=== PATIENT | female | born 1930 | race Caucasian/White ===

== ENCOUNTER 2016-07-17 09:08 | Inpatient (IN) | payer MEDICARE, BC ==
[~2016-07-17] VITALS: Ht 147.3 cm; Wt 58.9 kg
[~2016-07-17 09:08] MED LIST: AMLO-20 PO; CELEBREX; CLONIDINE; EZET1TAB40 PO; LOVAZA; TYLENOL
[2016-07-17] MEDS ORDERED: ONDANSETRON 4 MG INJ IV STA ×2 (09:13→10:42)
[2016-07-17] MEDS ORDERED: morphine 4 MG/ML VIAL IV STA ×2 (09:13→10:42)
--- NOTE | 2016-07-17 09:54 | RADRPT ---
PROCEDURE: XR Left Hip. CLINICAL INDICATION: Suspected fx after ground level fall TECHNIQUE: AP and frog lateral views of the left hip were performed. COMPARISON: None. FINDINGS: Comminuted intertrochanteric left hip fracture with medial displacement of the proximal femur. Mauricio ed varus angulation at the fracture site. Atherosclerotic calcification of the femoral artery. No gross pelvic fracture. IMPRESSION: Comminuted intratrochanteric fracture of the left hip with varus angulation. No pelvic fracture. RPTAT:AAJJ Nia Maldonado Physician Date Time Electronically viewed and signed by Physician Shaniqua on 07/17/2016 09:54 ESTRELLITA/
--- NOTE | 2016-07-17 09:54 | ERA ---
ER Documentation Chief Complaint Date/Time DATE: 07/17/16 TIME: 09:50 Chief Complaint left hip pain with rotation HPI This is a very pleasant 86-year-old Guinean speaking female presents to the emergency department after she had a ground-level fall while getting out of a van at her assisted living facility. She tripped and fell and landed on her left hip. She did not hit her head or lose consciousness. She indicates that there is a significant amount of pain over her left hip when she attempts to move it. She received 4 mg of morphine intravenously by EMS. She denies any back pain. She has no chest pain or pressure. She denies any dyspnea. She denies any numbness or tingling of her left lower extremity ROS All systems reviewed and are negative except as per history of present illness. Medications Home Meds Reported Medications [Tylenol] No Conflict Check 12/11/12 [Lovaza] No Conflict Check 12/11/12 [Clonidine] No Conflict Check 12/11/12 [Celebrex] No Conflict Check 12/11/12 Amlodipine-Benazepril (Amlodipine-Benazepril) 1 Cap Capsule, 1 CAP PO BID 03/23/11 Ezetimibe-Simvastatin (Vytorin) 1 Tab Tablet, 1 TAB PO DAILY 03/23/11 Allergies Allergies: Coded Allergies: No Known Allergies (Verified Allergy, Unknown, 07/17/16) PMhx/Soc Medical and Surgical Hx: pt denies Medical Hx, pt denies Surgical Hx Anesthesia Reaction: No Hx Neurological Disorder: No Hx Respiratory Disorders: Yes (SOB.) Hx Cardiac Disorders: Yes (HTN.) Hx Psychiatric Problems: No Hx Miscellaneous Medical Probl: No Hx Alcohol Use: No Hx Substance Use: No Hx Tobacco Use: No Smoking Status: Current every day smoker Physical Exam Vitals Vital Signs Date Time Temp Pulse Resp B/P Pulse Ox O2 Delivery O2 Flow Rate FiO2 07/17/16 09:18 97.7 74 18 140/92 98 Physical Exam Constitutional:Well-developed. Well-nourished. HEENT:Normocephalic. Atraumatic.Pupils were equal round reactive to light. Moist mucous membranes.No tonsillar exudates. Neck: No nuchal rigidity. No lymphadenopathy. No posterior cervical spine tenderness or step-offs. Respiratory: Not using accessory muscles of respiration.Lungs were clear to auscultation bilaterally. No rhonchi. No rales. No wheezing. Cardiovascular: Regular rate regular rhythm.No murmurs. No rubs were appreciated.S1, S2 normal. Distal pulses are palpable 2+ bilaterally. GI: Abdomen was soft. Nontender. Non Distended. No pulsatile abdominal masses or bruits. No rebound. No guarding. Bowel sounds were present and normal. Muscle skeletal: Full range of motion of both the upper extremities. Patient was able to AB duct both upper extremities past 90. No tenderness over the bilateral humeral head. Tenderness over the proximal left femur and left lower extremity was short and externally rotated. No muscle atrophy Skin: No petechia, no purpura. No lesions on the palms or the soles of the feet. No maculopapular rash. NEURO: Patient was alert, awake, orientated to person place but not to time.No facial droop. Gait not observed due to the patient's deformities of her left lower extremity peer.Speech had regular rate and rhythm. No focal neurological deficits. Constitutional:Well-developed. Well-nourished. Result Diagram: 07/17/16 1017 07/17/16 1017 Results 24 hrs Laboratory Tests Test 07/17/16 10:17 Activated Partial Thromboplast Time 28.6Sec Alanine Aminotransferase (ALT/SGPT) 32IU/L Albumin 3.6g/dl Albumin/Globulin Ratio 1.24 Alkaline Phosphatase 50IU/L Amylase Level 81U/L Anion Gap 14 Aspartate Amino Transf (AST/SGOT) 29IU/L Basophils # 0.010^3/ul Basophils % 0.4% Blood Urea Nitrogen 14mg/dl Calcium Level 8.8mg/dl Carbon Dioxide Level 28mmol/L Chloride Level 107mmol/L Creatinine 0.66mg/dl Direct Bilirubin 0.00mg/dl Eosinophils # 0.110^3/ul Eosinophils % 0.8% Globulin 2.90g/dl Glucose Level 123mg/dl Hematocrit 39.4% Hemoglobin 13.3g/dl INR International Normalized Ratio 1.14 Indirect Bilirubin 0.4mg/dl Lipase 31U/L Lymphocytes # 1.810^3/ul Lymphocytes % 20.4% Mean Corpuscular Hemoglobin 31.7pg Mean Corpuscular Hemoglobin Concent 33.8g/dl Mean Corpuscular Volume 93.9fl Mean Platelet Volume 9.4fl Monocytes # 0.710^3/ul Monocytes % 7.5% Neutrophils # 6.310^3/ul Neutrophils % 70.9% Nucleated Red Blood Cells # 0.010^3/ul Nucleated Red Blood Cells % 0.0/100WBC Platelet Count 56450^3/UL Potassium Level 4.3mmol/L Prothrombin Time 14.6Sec Prothrombin Time Ratio 1.1 Red Blood Count 4.2010^6/ul Red Cell Distribution Width 12.9% Sodium Level 145mmol/L Total Bilirubin 0.4mg/dl Total Protein 6.5g/dl Troponin I < 0.012ng/ml White Blood Count 8.910^3/ul Current Medications Medications (Trade) Dose Ordered Sig/Ryan Route PRN Reason Start Time Stop Time Status Last Admin Dose Admin Morphine Sulfate (morphine) 4 mg ONCE STAT IV 07/17/16 09:13 07/17/16 09:17 DC 07/17/16 09:25 Ondansetron HCl (Zofran Inj) 4 mg ONCE STAT IV 07/17/16 09:13 07/17/16 09:17 DC 07/17/16 09:25 Morphine Sulfate (morphine) 4 mg ONCE STAT IV 07/17/16 10:42 07/17/16 10:43 DC 07/17/16 10:45 Ondansetron HCl (Zofran Inj) 4 mg ONCE STAT IV 07/17/16 10:42 07/17/16 10:43 DC 07/17/16 10:45 Ondansetron HCl (Zofran Inj) 4 mg BRIDGE ORDER PRN IV NAUSEA AND/OR VOMITING 07/17/16 11:00 07/18/16 10:59 Procedures/MDM Patient presented to the emergency department with a ground-level fall. There is no closed head injury and and utilizing the Nexus criteria I did not obtain a CT scan of the patient's neck. The patient is in a significant amount discomfort and therefore was placed in a quality assurance monitor continuous pulse oximetry and IV access was established by nursing staff. The patient received intravenous morphine and Zofran for analgesic control. 12 Lead EKG tracing ordered and reviewed by myself showed: Accelerated junctional rhythm of 77 bpm and no arrhythmia. [place] interval normal. QRS duration normal. No ST segment elevation. Left axis deviation No ST segment depression. No changes consistent with acute ischemia. X-ray of the right hip and pelvis read by myself as well as the radiologist indicated the following: Comminuted intratrochanteric fracture of the left hip with varus angulation. No pelvic fracture. The patient states her primary care physician is Dr. Boland. Therefore spoke with him personally he stated he will make a consult to Dr. Schuler at the patient has been seen by Dr. Schuler in the past due to a right hip fracture in 2012 that required ORIF. The patient was made n.p.o. She will be admitted in serious condition with an anticipated stay of greater than 2 midnights the medical surgical floor Departure Diagnosis: Primary Impression: Closed intertrochanteric fracture of right hip NELDA FOURNIER Jul 17, 2016 09:54
--- NOTE | 2016-07-17 09:56 | RADRPT ---
PROCEDURE: Pelvis x-ray CLINICAL INDICATION: Suspected fracture following ground-level fall. TECHNIQUE: Single AP view of the pelvis performed. COMPARISON: None FINDINGS: Comminuted intertrochanteric fracture of the left hip with varus angulation at the fracture site. C hronic fracture deformity of the right inferior pubic ramus and superior pubic ramus. Right hip mal e an intramedullary rosa in place. Remaining pelvis is intact. IMPRESSION: Comminuted intertrochanteric fracture deformity of the left hip. Chronic right inferior and superio r pubic rami fractures Right hip male intramedullary rosa in place. RPTAT:AAJJ Physician Shaniqua Date Time Electronically viewed and signed by Physician Shaniqua on 07/17/2016 09:56 ESTRELLITA/
[2016-07-17 10:24] LABS: BASOPHILS % 0.4 % (0.0-2.0); EOSINOPHILS # 0.1 10^3/ul (0.0-0.5); EOSINOPHILS % 0.8 % (0.0-7.0); HEMATOCRIT 39.4 % (37.0-47.0); HEMOGLOBIN 13.3 g/dl (12.0-16.0); LYMPHOCYTES # 1.8 10^3/ul (0.8-2.9); LYMPHOCYTES % 20.4 % (15.0-51.0); MEAN CORPUSCULAR HEMOGLOBIN 31.7 pg (29.0-33.0); MEAN CORPUSCULAR HGB CONC 33.8 g/dl (32.0-37.0); MEAN CORPUSCULAR VOLUME 93.9 fl (82.0-101.0); MEAN PLATELET VOLUME 9.4 fl (7.4-10.4); MONOCYTE # 0.7 10^3/ul (0.3-0.9); MONOCYTES % 7.5 % (0.0-11.0); NEUTROPHIL # 6.3 10^3/ul (1.6-7.5); NEUTROPHILS % 70.9 % (39.0-77.0); PLATELET COUNT 191 10^3/UL (140-440); RED CELL DISTRIBUTION WIDTH 12.9 % (11.5-14.5); UNCORRECTED WBC 8.9 10^3/ul (4.8-10.8); WHITE BLOOD COUNT 8.9 10^3/ul (4.8-10.8)
[2016-07-17 10:30] LABS: CONDITION 1
[2016-07-17 10:36] LABS: ALBUMIN 3.6 g/dl (3.3-4.9); INR 1.14; PROTIME 14.6 Sec (12.2-14.2); PT RATIO 1.1
[2016-07-17 10:37] LABS: CHLORIDE 107 mmol/L (97-110); PARTIAL THROMBOPLASTIN TIME 28.6 Sec (25.0-35.0); POTASSIUM 4.3 mmol/L (3.5-5.1); SODIUM 145 mmol/L (135-144)
[2016-07-17 10:39] LABS: ALBUMIN/GLOBULIN RATIO 1.24; AMYLASE 81 U/L (11-123); ANION GAP 14 (8-16); ASPARTATE AMINO TRANSFERASE 29 IU/L (15-46); BILIRUBIN,INDIRECT 0.4 mg/dl (0-1.1); BILIRUBIN,TOTAL 0.4 mg/dl (0.2-1.3); CARBON DIOXIDE 28 mmol/L (21-31); CREATININE 0.66 mg/dl (0.44-1.00); TOTAL PROTEIN 6.5 g/dl (6.1-8.1)
[2016-07-17 10:40] LABS: ALANINE AMINOTRANSFERASE 32 IU/L (13-69); ALKALINE PHOSPHATASE 50 IU/L (42-121); BLOOD UREA NITROGEN 14 mg/dl (7-20); CALCIUM 8.8 mg/dl (8.4-10.2); GLUCOSE 123 mg/dl (70-220)
[2016-07-17 10:54] LABS: TROPONIN-I < 0.012 ng/ml (0.00-0.12)
[2016-07-17] MEDS ORDERED: ONDANSETRON 4 MG INJ IV PRN ×2 (11:00→13:00)
[2016-07-17] MEDS ORDERED: BACL10TA PO (11:23)
[2016-07-17] MEDS ORDERED: MAGN400T27 PO (11:23)
[2016-07-17] MEDS ORDERED: LEVO50TA71 PO (11:24)
[2016-07-17] MEDS ORDERED: GABA300C16 PO (11:24)
[2016-07-17] MEDS ORDERED: MECL-77 PO (11:24)
[2016-07-17] MEDS ORDERED: AMLO1CAP15 PO (11:25)
[2016-07-17] MEDS ORDERED: MEMA28CA PO (11:26)
[2016-07-17] MEDS ORDERED: IBAN150T7 PO (11:26)
[2016-07-17] MEDS ORDERED: OMEG1CAP2 PO (11:27)
[2016-07-17] MEDS ORDERED: ROSU20TA PO (11:27)
[2016-07-17] MEDS ORDERED: ASPI1CPM8 PO (11:27)
[2016-07-17] MEDS ORDERED: CHOL100062 PO (11:28)
[2016-07-17] MEDS ORDERED: NACL 0.9% 3 ML SYG IV SCH (13:00)
[2016-07-17] MEDS ORDERED: DOCUSATE SODIUM 100 MG CAP PO PRN (13:00)
[2016-07-17] MEDS ORDERED: MECLIZINE 25 MG TAB PO PRN (13:00)
[2016-07-17] MEDS ORDERED: MAGNESIUM HYDROXIDE 30ML CUP PO PRN (13:00)
[2016-07-17] MEDS ORDERED: SOD CHLORIDE 0.9% 1,000 ML IV STA (14:20)
--- NOTE | 2016-07-17 16:04 | RADRPT ---
Echocardiogram Report Patient Name: SHERI ALAMO Gender: Female Date: 1930 Study Date: 17-Jul-2016 Landscape Artist: Colette Briscoe RDCS Location: [facility] Ref. Physician: ABELARDO NELSON Quality: Adequate Procedures: Transthoracic echocardiogram with complete 2D, M-Mode, and doppler examination. Indications: Pre-op. 2D/M Mode Doppler Measurement Value Normal Ranges Measurement Value Normal Ranges LVIDd 2D 3.5 3.5 - 5.6 cm AV Peak Adan 1.1 m/sec LVIDs 2D 1.5 2.1 - 4.1 cm AV Peak PG 5.0 mmHg FS 2D 57.5 % AI Peak PG 54.0 mmHg LVPWd 2D 1.2 0.6 - 1.1 cm AI Peak Adan 3.7 m/sec IVSd 2D 1.3 0.6 - 1.1 cm AI PHT 590.0 msec IVS/LVPW 2D 1.0 LVOT Peak Adan 0.9 m/sec AoR Diam 2D 3.0 2.0 - 3.7 cm LVOT Peak PG 3.0 mmHg LA/Ao 2D 1 0 - 1 MV E Peak Adan 0.4 m/sec EDV 2D 44.7 cm3 MV A Peak Adan 0.8 m/sec ESV 2D 3.4 cm3 MV E/A 0.6 LA Dimen 2D 3.5 2.3 - 4.0 cm MV Decel Time 162 msec MV E/A 0.6 TR Peak Adan 2.3 m/sec TR Peak PG 22.0 mmHg RVSP 25.0 mmHg Findings Left Ventricle: Normal left ventricular systolic function. Normal left ventricular cavity size. Moderate concentric left ventricular hypertrophy. Ejection fraction is visually estimated at 65 %. Tissue Doppler/Mitral Doppler indices are consistent with impaired relaxation (Stage I diastolic dysfunction). Right Ventricle: Normal right ventricular size. Normal right ventricular systolic function. Left Atrium: The left atrium is normal in size. Right Atrium: The right atrium is normal in size. Mitral Valve: Normal appearance of the mitral valve. Mild mitral annular calcification. Trace mitral regurgitation. Aortic Valve: No hemodynamically significant aortic stenosis by doppler. Aortic cusps appear mildly calcified. Mild aortic valve regurgitation. Tricuspid Valve: Normal appearance of the tricuspid valve. Estimated peak PA systolic pressure 25 mmHg. There is trace tricuspid regurgitation. Pericardium: Trivial pericardial effusion. Left pleural effusion seen. Aorta: Normal aortic root. IVC: Normal size and normal respiratory collapse consistent with normal right atrial pressure. Conclusions 1.Normal left ventricular systolic function. Normal left ventricular cavity size. Moderate concentric left ventricular hypertrophy. Ejection fraction is visually estimated at 65 %. Tissue Doppler/Mitral Doppler indices are consistent with impaired relaxation (Stage I diastolic dysfunction). 2.The left atrium is normal in size. 3.Normal appearance of the mitral valve. Mild mitral annular calcification. Trace mitral regurgitation. 4.No hemodynamically significant aortic stenosis by doppler. Aortic cusps appear mildly calcified. Mild aortic valve regurgitation. 5.Normal appearance of the tricuspid valve. Estimated peak PA systolic pressure 25 mmHg. There is trace tricuspid regurgitation. 6.Normal size and normal respiratory collapse consistent with normal right atrial pressure. Electronically Signed By: Abelardo Nelson 17-Jul-2016 16:03:12 -0800 Patient Name: SHERI ALAMO Study Date: 17-Jul-2016 [id number]
--- NOTE | 2016-07-17 16:30 | RADRPT ---
PROCEDURE: XR Chest AP portable CLINICAL INDICATION: Pleural preop TECHNIQUE: An AP portable radiograph of the chest was submitted. COMPARISON: 12/15/2012 FINDINGS: Support Hardware: None Cardiovascular: The heart size has increased and is now moderately enlarged of the aorta appears ath erosclerotic and the pulmonary vasculature appears unremarkable. Lung Bond: A suboptimal inspiration compresses lung parenchyma with exaggeration of bibasilar inte rstitial markings. Interstitial prominence is also now seen in the right upper lobe. Pleural Spaces: No pneumothorax or pleural effusion is identified. Osseous Structures: Moderate degenerative spine changes are noted. Compression fracture deformities are seen at the thoracolumbar junction. Soft Tissues: The soft tissues appear generous. IMPRESSION: 1. Increased heart size with no moderate cardiomegaly. The aorta again appears tortuous but there is no evidence of CHF. 2. A suboptimal inspiration compresses lung parenchyma exaggerating the bibasilar interstitial monty ings and interstitial infiltrate in a band-like fashion is not seen within the medial right upper ty ng zone. 3. No effusion or pneumothorax is evident. 4. Compression fracture deformities are evident at the vertical lumbar junction. These were obscure d previously by under penetrated technique. Physician Rosa Date Time Electronically viewed and signed by Physician Rosa on 07/17/2016 16:30 RH/
--- NOTE | 2016-07-17 18:04 | HP ---
DATE OF ADMISSION: 07/17/2016 REASON FOR ADMISSION: Left hip fracture. HISTORY OF PRESENT ILLNESS: The patient is an 86-year-old Croatian-speaking female with history of hypertension, osteoarthritis, dyslipidemia, osteoporosis who is very well known to me. Back in 2012 she underwent right hip ORIF, status post fall and fracture. The patient overall is doing very well . She is ambulatory. Good functional capacity. Unfortunately, today she sustained a fall complain ing of severe pain in the left hip. She was brought into [facility] for further e valuation. In the ER, the temperature vital signs temperature 97.7, pulse 74, respirations 18, bloo d pressure was 140/92, saturation 98%. The patient underwent multiple x-rays including a pelvic x-r ay which showed comminuted intertrochanteric fracture deformity of the left hip, chronic right infer ior and superior pubic ramus fracture of the right hip intramedullary rosa in place. Hip x-ray shows comminuted intertrochanteric fracture of the left hip with varus angulation. No pelvic fracture. C BC: CBC including CMP were all normal. Troponin was negative. We decided to admit the patient for further evaluation for possible surgical intervention as patient has severe pain in the left hip upo n slight movement. The patient denies any chest pain or shortness of breath. Family is at bedside. As of note, after surgery she had in 2013 for the right hip fracture she did have episodes of hypo justin requiring ICU care. At that time, CT pulmonary angiogram showed a 4.5 cm ascending aortic aneur ysm, cardiomegaly and small pericardial effusion and a 5 mm left apical pulmonary nodule and T12, T1 1 and L1 superior end plate compression fracture. At that time, patient improved and discharged. PAST MEDICAL HISTORY: Includes hypertension, osteoarthritis, and osteoporosis. ALLERGIES: NO KNOWN DRUG ALLERGIES. SURGICAL HISTORY: Appendectomy, right hip ORIF. SOCIAL HISTORY: No history of tobacco, alcohol or IV drug use. The patient is a . She has 4 kids. FAMILY HISTORY: Not contributory. MEDICATIONS: CURRENT MEDICATIONS: Include the followin. Baclofen 10 mg daily. 2. Amlodipine. 3. Benazepril combination 10/40 half a tab t.i.d. 4. Aspirin. 5. Aggrenox 1 capsule b.i.d. 6. Lovaza 2 grams b.i.d. 7. Crestor 20 mg at bedtime. 8. Gabapentin 300 mg at bedtime. 9. Namenda XR 28 mg daily. 10. Mag-Ox 400 b.i.d. 11. Meclizine 25 b.i.d. p.r.n. her dizziness. 12. Synthroid 50 mcg daily. 13. Vitamin D3 as directed. 14. ____ 150 mg every month. PHYSICAL EXAMINATION: VITAL SIGNS: Temperature is 97.7, pulse 81, respirations 18, blood pressure 106/73, saturation 98% on room air. GENERAL: The patient is in no acute distress. HEENT: Normocephalic, atraumatic. The patient is pale. NECK: No JVD. CARDIOVASCULAR: S1 and S2, regular rate and rhythm. LUNGS: Clear bilaterally. ABDOMEN: Soft, nontender. EXTREMITIES: No clubbing, cyanosis, or edema. Left lower extremity laterally rotated and shortened consistent with a hip fracture. The patient has severe pain upon slight movement of the left lower extremity. LABORATORY DATA: White count 8.9, hemoglobin 13.3, hematocrit 39, platelet count 191, neutrophils 7 1%, lymphocytes 20%. Chemistry: Sodium is 145, potassium 4.3, chloride 107, bicarbonate 28, BUN is 14, creatinine 0.66, glucose of 123, AST 29, ALT 32, alkaline phosphatase 50, troponin is less than 0.012. Total protein +6.5, lipase is 31. INR is 1.14. Chest x-ray was not done. EKG: Accelerated junctional rhythm, left axis deviation, septal infarct, age undetermined. EKG wh [facility] was done back in 2012. At that time, shows normal sinus rhythm with left axis deviation. ASSESSMENT AND PLAN: This is an 86-year-old Croatian female with history of hypertension, osteoarth ritis, hypothyroidism, osteoarthritis who presented with left hip fracture status post fall. 1. Left hip fracture. The patient with no significant risk factors, no history of diabetes, morales ry artery disease. She does have an abnormal EKG. The patient overall with good functional capacit y. We will obtain a baseline echocardiogram and will consult Cardiology. Likely would not need any further cardiac workup but will discuss with Dr. Nelson. 2. Left hip fracture. Patient likely will need surgical intervention. We will consult Dr. Edu bean for further recommendations. 3. Hypertension. May benefit from beta blockers in the perioperative state as the patient has been on Aggrenox. We will place the patient on deep venous thrombosis prophylaxis with Lovenox. 4. The patient will be kept comfortable with pain medications. 5. Protonix to be given for GI prophylaxis. 6. Hypothyroidism. Follow up TSH level. Continue current Synthroid dose. Case discussed with fam anjel member at bedside. We will follow. Dictated By: ESTER CUBA/BETI Conf#: [id number] DID#: [id number]
--- NOTE | 2016-07-17 19:08 | CONS ---
DATE OF ADMISSION: 07/17/2016 DATE OF CONSULTATION: 07/17/2016 REFERRING PHYSICIAN: Grant Kinney MD REASON FOR CONSULTATION: Cardiovascular preop evaluation. CHIEF COMPLAINT: Hip pain. HISTORY OF PRESENT ILLNESS: Thank you for this referral. History obtained from the patient, wesley sosa with her daughter, discussion with the staff and physicians, and review of the chart. This is a pleasant 86-year-old Albanian female with history of hypertension, osteoarthritis, dyslipidemia wh o is being admitted because of a hip fracture. The patient apparently has had a fall, has had hip p ain. Workup has shown fracture and is being evaluated for possible orthopedic surgery. We were kin dly asked to optimize prior to surgery. According to the patient and the family, patient is "very a ctive." She "runs" and is able to dance with no chest pain, no pressure. She does complain of hip pain. Family and the patient deny any history of cardiac problems or issues with anesthesia or prob lems with previous surgery. The patient denies any chest pain or pressure. PAST MEDICAL HISTORY: Hypertension, osteoarthritis, osteoporosis, history of right hip surgery, his tory of reportedly a 4.5 cm ascending aortic aneurysm, history of a small left apical pulmonary nodu le, and compression fractures. ALLERGIES: NO KNOWN ALLERGIES. SURGICAL HISTORY: Appendectomy, right hip ORIF. SOCIAL HISTORY: Does not smoke or drink. Is a , has 4 kids. FAMILY HISTORY: No reported early coronary artery disease. MEDICATIONS: Prior to admission include: 1. Amlodipine. 2. Benazepril. 3. Aspirin. 4. Aggrenox. 5. Lovaza. 6. Crestor. 7. Meclizine. 8. Synthroid. REVIEW OF SYSTEMS: As above mentioned. She denied all except for above-mentioned. PHYSICAL EXAMINATION: VITAL SIGNS: Temperature 97.7, heart rate of 80, blood pressure 106/73, respiration rate of 18, sat urating 98%. HEENT: Normocephalic, atraumatic. No acute distress. Pupils are equal and round. CARDIOVASCULAR: Regular rate and rhythm, systolic murmur. PULMONARY: With no wheezes, no rhonchi. GASTROINTESTINAL: Soft, nontender. EXTREMITIES: With trivial lower extremity edema. NEUROLOGIC: Awake, responds appropriately. PSYCHIATRIC: Appears to be calm and pleasant. DIAGNOSTIC DATA: EKG showed normal sinus rhythm. Poor R-wave progression consistent with possible anterior infarct. Cannot rule out inferior infarct, age undetermined. Echocardiogram was personall y reviewed as well, which showed ejection fraction of 65%, grade I diastolic dysfunction, mild aorti c valve regurgitation. Chest x-ray shows increased heart size. Aorta appeared to be tortuous. Poo r inspiration. Hip x-ray shows comminuted intratrochanteric fracture of the left hip with varus ang ulation. LABORATORY: WBC is 8.9, hemoglobin 13.3, platelet 191. Sodium 145, potassium 4.3, BUN is 14, creat inine 0.66, glucose 123. Troponin less than 0.012. ASSESSMENT AND PLAN: 1. Cardiovascular preop evaluation. 2. Left hip fracture. 3. Hypertension. 4. Dyslipidemia on statin. 5. History of hypothyroidism on Synthroid. 6. Hip pain secondary to above. RECOMMENDATIONS: The patient is current on optimal medical therapy and has good exercise tolerance per her and the family's report. She denies also any anginal chest pain or any history of cardiac d isorder except for the hypertension, which is well controlled. Based on the above and ____ AHA camron mmendations, no further cardiac workup would be indicated because of her risk. She would be at ther e with mild to moderate risk of cardiovascular event, but no further cardiac workup would be felt to be beneficial or indicated in this patient. Dictated By: ABELARDO MENDEZ MD AV/BETI Conf#: [id number] DID#: [id number] CC: GRANT KINNEY MD;*[facility]*
[2016-07-17 19:27] VITALS: TEMP 98
[2016-07-17] MEDS: HYDROCODONE/APAP (5/325) TAB PO PRN (19:51)
[2016-07-17 20:30] VITALS: Ht 147.3 cm; Wt 58.9 kg
[2016-07-17 21:21] VITALS: BP 119/71; RESP 18
[2016-07-17] MEDS: morphine 2 MG INJ IV PRN (22:15)
[2016-07-17] MEDS: MAGNESIUM OXIDE 400 MG TAB PO SCH (22:16)
[2016-07-17] MEDS: GABAPENTIN 300 MG CAP PO SCH (22:16)
[2016-07-18] MEDS: PANTOPRAZOLE (EC) 40 MG TAB PO SCH (05:38)
[2016-07-18 05:49] LABS: ALBUMIN 3.3 g/dl (3.3-4.9)
[2016-07-18 05:51] LABS: CREATININE 0.75 mg/dl (0.44-1.00)
[2016-07-18 05:52] LABS: ALBUMIN/GLOBULIN RATIO 1.43; BILIRUBIN,INDIRECT 0.8 mg/dl (0-1.1); BILIRUBIN,TOTAL 0.8 mg/dl (0.2-1.3); PHOSPHORUS 3.2 mg/dl (2.5-4.9); TOTAL PROTEIN 5.6 g/dl (6.1-8.1)
[2016-07-18 05:53] LABS: CALCIUM 8.2 mg/dl (8.4-10.2); MAGNESIUM 1.9 mg/dl (1.7-2.5)
[2016-07-18 06:22] LABS: BASOPHILS % 0.3 % (0.0-2.0); EOSINOPHILS % 0.1 % (0.0-7.0); HEMATOCRIT 30.7 % (37.0-47.0); HEMOGLOBIN 10.2 g/dl (12.0-16.0); LYMPHOCYTES # 1.9 10^3/ul (0.8-2.9); MEAN CORPUSCULAR HEMOGLOBIN 32.2 pg (29.0-33.0); MEAN CORPUSCULAR HGB CONC 33.4 g/dl (32.0-37.0); MEAN CORPUSCULAR VOLUME 96.5 fl (82.0-101.0); MEAN PLATELET VOLUME 10.1 fl (7.4-10.4); MONOCYTE # 0.8 10^3/ul (0.3-0.9); MONOCYTES % 16.3 % (0.0-11.0); NEUTROPHIL # 2.4 10^3/ul (1.6-7.5); NEUTROPHILS % 46.3 % (39.0-77.0); PLATELET COUNT 150 10^3/UL (140-440); RED BLOOD COUNT 3.18 10^6/ul (4.20-5.40); RED CELL DISTRIBUTION WIDTH 13.2 % (11.5-14.5); UNCORRECTED WBC 5.2 10^3/ul (4.8-10.8); WHITE BLOOD COUNT 5.2 10^3/ul (4.8-10.8)
[2016-07-18 06:55] LABS: CONDITION 1; LH ANALYZER COMMENTS 1
[2016-07-18] MEDS: LEVOTHYROXINE 50 MCG TAB PO SCH (07:02)
[2016-07-18] MEDS: ACETAMINOPHEN 325 MG TAB PO PRN (07:17)
[2016-07-18 08:43] VITALS: BP 95/54; RESP 14
[2016-07-18] MEDS ORDERED: ASPIRIN 81 MG TAB PO SCH (09:00)
[2016-07-18] MEDS ORDERED: ENOXAPARIN 40 MG/0.4 ML SYG SC SCH (09:00)
[2016-07-18] MEDS: BACLOFEN 10 MG TAB PO SCH (09:18)
[2016-07-18] MEDS: CHOLECALCIFEROL 1,000 UNIT TAB PO SCH (09:18)
[2016-07-18] MEDS: MAGNESIUM OXIDE 400 MG TAB PO SCH ×3 (09:18→20:30)
[2016-07-18] MEDS ORDERED: ZOLPIDEM 5 MG TAB PO PRN (09:30)
--- NOTE | 2016-07-18 12:27 | PN ---
DATE: 07/18/2016 SUBJECTIVE: The patient unfortunately is status post fall s she has a left hip fracture. I appreci ate cardiology input and recommendations. Awaiting ortho eval and recommendations as well. PHYSICAL EXAMINATION: VITAL SIGNS: Temperature is 98.1, pulse 80, respirations 14, blood pressure 95/54, saturation 92% o n room air. GENERAL: The patient is in no acute distress, pale. HEENT: Dry mucous membranes. CARDIOVASCULAR: S1 and S2, regular rate and rhythm. LUNGS: Clear bilaterally. ABDOMEN: Soft, nontender. EXTREMITIES: No clubbing, cyanosis, or edema. Left lower extremity left laterally rotated and shor ter. LABORATORIES: Sodium today is 140, potassium 4.0, chloride 102, bicarbonate 28, BUN is 21, creatini ne 0.75, glucose 123. White count is 5.2, hemoglobin is low at 10.2, hematocrit 31, platelet count of 150, neutrophils 46%, lymphocytes 37%, lymphocytes 16%. UA was not done. Chest x-ray shows incr eased heart size with no moderate cardiomegaly. Delta appears tortuous, but there is no evidence of CHF. A suboptimal inspiration compresses lung parenchyma exacerbating the basilar interstitial mar shaheen and interstitial infiltrates in a band-like fashion, it is not seen within the medial right upp er lung zone. No effusion, no pneumothorax is evident. There are compression fracture deformities evident at the vertical lumbar junctions, they were obscured previously by technique. Previou sly she had a CT angiogram of the chest in 2012. At that time, she had a 4.5 cm ascending aortic an eurysm T11, T12, L1 superior endplate compression fractures, and a 5 mm left apical pulmonary nodule . ASSESSMENT AND PLAN: This is an 86-year-old Telugu female with history of hypertension, osteoarth ritis, hypothyroidism who presented to with left hip fracture. 1. Left hip fracture, awaiting ortho recommendation. Noted cardiology recommendations. This patie nt does have good exercise tolerance. Echocardiogram shows preserved ejection fraction 65% with gra de I diastolic dysfunction. The patient overall can continue with surgical intervention if needed. Continue deep venous thrombosis prophylaxis with Lovenox. Continue aspirin for cardiac protection. Blood pressure is under control. 2. History of aortic aneurysm and pulmonary nodule. Will discuss with family regarding obtaining a CT scan. 3. The patient is on Protonix for GI prophylaxis. 4. Hypothyroidism. TSH is normal at 3.7. Continue Synthroid 50 mcg daily. 5. Continue Protonix for GI prophylaxis. 6. Monitor the patient's p.o. intake. Continue gentle hydration. We will place [place] and obtain u rine studies prior to surgery. We will follow. Dictated By: ESTER CUBA/BETI Conf#: [id number] DID#: [id number]
[2016-07-18] MEDS: HYDROCODONE/APAP (5/325) TAB PO PRN (15:05)
[2016-07-18] MEDS: morphine 2 MG INJ IV PRN ×2 (16:30→21:58)
--- NOTE | 2016-07-18 17:27 | PN ---
DATE: 07/18/2016 CARDIOLOGY FOLLOWUP SUBJECTIVE: No new cardiac event. No reported chest pain or pressure. No palpitation has been rep orted either. MEDICATIONS: Reviewed. PHYSICAL EXAMINATION: VITAL SIGNS: Temperature 98.1, heart rate of 80, blood pressure 95/54, respiratory rate of 14. Sat urating 98%. HEENT: Normocephalic, atraumatic. Pupils are equal. CARDIOVASCULAR: Regular rate and rhythm. PULMONARY: With no wheezes anteriorly. No rhonchi. GASTROINTESTINAL: Soft, nontender. EXTREMITIES: With trivial edema. NEUROLOGIC: He is awake. PSYCHIATRIC: Appears to be anxious, agitated. LABORATORY: WBC of 5.2, hemoglobin 10.2, platelets of 150. Sodium 140, potassium 4, BUN of 21, cre atinine 0.75, glucose 123. ASSESSMENT AND PLAN: 1. Cardiovascular preop evaluation. 2. Left hip fracture. 3. History of hypertension, currently stable off all medication. 4. Dyslipidemia on statin. 5. Hypothyroidism on Synthroid. 6. Hip pain secondary to above. RECOMMENDATIONS: We will continue with the current cardiac care. Awaiting hip surgery. Deep venou s thrombosis prophylaxis will be continued. We will continue to follow and monitor along with you. Dictated By: ABELARDO MENDEZ MD AV/NTS Conf#: [id number] DID#: [id number] CC: ESTER KINNEY MD;*[facility]*
--- NOTE | 2016-07-18 18:10 | CONS ---
DATE OF ADMISSION: 07/17/2016 DATE OF CONSULTATION: 07/18/2016 TYPE OF CONSULTATION: Orthopedic consultation. HISTORY OF PRESENT ILLNESS: The patient is an 86-year-old French-speaking female who was admitted on 07/17/2016 through the emergency room when she was brought in to the emergency room because of t he painful swelling and limit of motion involving her left hip. She obviously had a ground-level fa ll, landing on her left hip. She had a intertrochanteric fracture of the right tibia in 2012 and was treated with open reduction and internal fixation. She is known to have hypertension, osteoarthritis and osteoporosis and had an appendectomy and open reduction and internal fixation of the intertrochanteric fracture of the right hip in the past. PHYSICAL EXAMINATION: GENERAL: My examination revealed an 86-year-old female who seems to be somewhat confused. EXTREMITIES: There was tenderness and swelling around the left hip and there was an obvious shorten ing and external rotation of the left lower extremity. Range of motion of the left hip was not test ed because of the obvious pain. There were no signs of acute neurovascular compromise involving the right lower extremity. IMAGING: X-rays of the pelvis revealed an obvious intertrochanteric fracture of the left hip which is displaced and angulated. There is a healed fracture in the right hip which was treated with ope n reduction and internal fixation. DIAGNOSTIC IMPRESSION: Intertrochanteric fracture of the left hip, displaced and angulated. TREATMENT PLAN: To carry out the open reduction and internal fixation as soon as she can be medical ly cleared for surgery. Dictated By: GONSALO BRUCE/BETI Conf#: [id number] DID#: [id number]
[2016-07-18 20:01] VITALS: BP 111/73; RESP 20
[2016-07-18] MEDS: GABAPENTIN 300 MG CAP PO SCH ×3 (20:28→21:00)
[2016-07-19] VITALS (22 sets, daily range): BP systolic 73–134; BP diastolic 58–83; PULSE 82–110; RESP 18–32
[2016-07-19] MEDS: SOD CHLORIDE 0.9% 1,000 ML IV SCH ×3 (00:12→14:57)
[2016-07-19] MEDS: PANTOPRAZOLE (EC) 40 MG TAB PO SCH (00:25)
[2016-07-19] MEDS: LEVOTHYROXINE 50 MCG TAB PO SCH (00:26)
[2016-07-19 05:10] LABS: BASOPHILS % 0.4 % (0.0-2.0); EOSINOPHILS % 0.3 % (0.0-7.0); HEMATOCRIT 27.5 % (37.0-47.0); HEMOGLOBIN 9.2 g/dl (12.0-16.0); LYMPHOCYTES # 1.6 10^3/ul (0.8-2.9); LYMPHOCYTES % 29.4 % (15.0-51.0); MEAN CORPUSCULAR HEMOGLOBIN 32.3 pg (29.0-33.0); MEAN CORPUSCULAR HGB CONC 33.6 g/dl (32.0-37.0); MEAN CORPUSCULAR VOLUME 95.9 fl (82.0-101.0); MEAN PLATELET VOLUME 9.7 fl (7.4-10.4); MONOCYTE # 0.7 10^3/ul (0.3-0.9); MONOCYTES % 13.6 % (0.0-11.0); NEUTROPHILS % 56.3 % (39.0-77.0); PLATELET COUNT 119 10^3/UL (140-440); RED BLOOD COUNT 2.86 10^6/ul (4.20-5.40); RED CELL DISTRIBUTION WIDTH 13.2 % (11.5-14.5); UNCORRECTED WBC 5.3 10^3/ul (4.8-10.8); WHITE BLOOD COUNT 5.3 10^3/ul (4.8-10.8)
[2016-07-19 05:14] LABS: POTASSIUM 4.1 mmol/L (3.5-5.1)
[2016-07-19 05:16] LABS: CREATININE 0.58 mg/dl (0.44-1.00)
[2016-07-19 05:18] LABS: CALCIUM 8.2 mg/dl (8.4-10.2)
[2016-07-19 05:35] LABS: PHOSPHORUS 2.1 mg/dl (2.5-4.9)
[2016-07-19 05:38] LABS: CONDITION 1
[2016-07-19] MEDS ORDERED: PROPOFOL 200 MG INJ ONE (07:00)
[2016-07-19] MEDS: CHOLECALCIFEROL 1,000 UNIT TAB PO SCH (09:00)
[2016-07-19] MEDS: BACLOFEN 10 MG TAB PO SCH (09:00)
[2016-07-19] MEDS ORDERED: POLYMYXIN/BACITRACIN 1L IRRIG ONE (09:12)
[2016-07-19 09:40] LABS: ADD UMIC YES; URINE BILIRUBIN (Dip) NEGATIVE (NEGATIVE); URINE BLOOD (Dip) 3+ (NEGATIVE); URINE COLOR YELLOW (YELLOW); URINE GLUCOSE (Dip) NEGATIVE (NEGATIVE); URINE KETONES (Dip) NEGATIVE (NEGATIVE); URINE LEUKOCYTE ESTERASE (Dip) TRACE (NEGATIVE); URINE NITRITE (Dip) NEGATIVE (NEGATIVE); URINE TOTAL PROTEIN (Dip) TRACE (NEGATIVE); URINE UROBILINOGEN (Dip) 2.0 E.U./dL (0.1-1.0)
[2016-07-19 09:52] LABS: SQUAMOUS EPITHELIAL CELL,UR FEW; URINE RBCS >50 /HPF (0)
--- NOTE | 2016-07-19 10:04 | HPN ---
Date/Time of Note Date/Time of Note DATE: 07/19/16 TIME: 10:03 Interval H&P Admission Note Pt. seen H&P reviewed: No system changes TACO RODRIGUEZ MD Jul 19, 2016 10:04
[2016-07-19] MEDS ORDERED: FENTAnyl 50 MCG/ML VIAL ONE (10:07)
[2016-07-19] MEDS ORDERED: MIDAZOLAM 1 MG/ML 2 ML INJ ONE ×4 (10:07→12:00)
[2016-07-19] MEDS ORDERED: ETOMIDATE 20 MG INJ ONE (10:08)
[2016-07-19] MEDS ORDERED: PHENYLephrine (100 MCG/ML) 5ML SYG ONE (10:24)
--- NOTE | 2016-07-19 11:16 | PN ---
DATE: 07/19/2016 SUBJECTIVE: The patient appears to be confused again. She has been yelling and screaming all night , per RN. There is no reported chest pain or pressure. MEDICATIONS: Reviewed. PHYSICAL EXAMINATION: VITAL SIGNS: Temperature 98, heart rate of 74, blood pressure 111/73, respiration rate of 20, satur ating 98%. HEENT: Normocephalic, atraumatic. Pupils are equal and round. CARDIOVASCULAR: Regular rate and rhythm, systolic murmur. PULMONARY: With no wheezes heard. GASTROINTESTINAL: Soft, nontender. EXTREMITIES: With trivial edema. NEUROLOGIC: Awake and alert, oriented to person. PSYCHIATRIC: Agitated. LABORATORY: Sodium 138, potassium 4.1, BUN of 13, creatinine 0.5, glucose 131, WBC of 5.3, hemoglob in 9.2, platelet 119. ASSESSMENT AND PLAN: 1. Cardiovascular preoperative evaluation. 2. Left hip fracture. 3. Hypertension, currently under good control. 4. Dyslipidemia, on statin. 5. Hypothyroidism, stable on Synthroid. RECOMMENDATIONS: We will continue with the current cardiac care. No further cardiac workup is tabitha cated. As mentioned, ____surgery. From a cardiac standpoint, mild to moderate risk of cardiovascu lar event. Awaiting surgery. Dictated By: ABELARDO CABRAL/BETI Conf#: [id number] DID#: [id number]
[2016-07-19] MEDS ORDERED: NACL 0.9% 3 ML SYG IV SCH (12:30)
[2016-07-19] MEDS ORDERED: DIPHENHYDRAMINE 50 MG INJ IV PRN (12:30)
[2016-07-19] MEDS ORDERED: FENTAnyl 50 MCG/ML VIAL IV PRN ×3 (12:30)
[2016-07-19] MEDS ORDERED: ONDANSETRON 4 MG INJ IV PRN (12:30)
[2016-07-19] MEDS ORDERED: EPHEDrine SULFATE 50 MG/5 ML SYG IV PRN (12:30)
[2016-07-19] MEDS ORDERED: MEPERIDINE 25 MG INJ IV PRN (12:30)
[2016-07-19] MEDS ORDERED: CEFAZOLIN 1 GM/50 ML (PMX) 50 ML IVPB SCH (12:30)
[2016-07-19] MEDS ORDERED: hydrALAzine 20 MG INJ IV PRN (12:30)
[2016-07-19] MEDS ORDERED: HYDROmorphONE (0.2 MG/ML) 10ML SYG IV PRN ×3 (12:30)
[2016-07-19] MEDS ORDERED: LABETALOL HCL 20MG INJ IV PRN (12:30)
[2016-07-19 13:10] LABS: BASOPHILS % 0.4 % (0.0-2.0); EOSINOPHILS % 0.1 % (0.0-7.0); HEMATOCRIT 26.4 % (37.0-47.0); HEMOGLOBIN 8.9 g/dl (12.0-16.0); LYMPHOCYTES # 1.5 10^3/ul (0.8-2.9); LYMPHOCYTES % 19.9 % (15.0-51.0); MEAN CORPUSCULAR HEMOGLOBIN 32.7 pg (29.0-33.0); MEAN CORPUSCULAR HGB CONC 33.8 g/dl (32.0-37.0); MEAN CORPUSCULAR VOLUME 96.5 fl (82.0-101.0); MEAN PLATELET VOLUME 9.4 fl (7.4-10.4); MONOCYTE # 0.8 10^3/ul (0.3-0.9); NEUTROPHIL # 5.2 10^3/ul (1.6-7.5); NEUTROPHILS % 68.6 % (39.0-77.0); PLATELET COUNT 111 10^3/UL (140-440); RED BLOOD COUNT 2.74 10^6/ul (4.20-5.40); RED CELL DISTRIBUTION WIDTH 13.4 % (11.5-14.5); UNCORRECTED WBC 7.6 10^3/ul (4.8-10.8); WHITE BLOOD COUNT 7.6 10^3/ul (4.8-10.8)
[2016-07-19 13:11] LABS: CONDITION 1
--- NOTE | 2016-07-19 13:29 | RADRPT ---
PROCEDURE: XR Left Hip. CLINICAL INDICATION: Status Post Hip surgery TECHNIQUE: AP and frog lateral views of the left hip were performed. COMPARISON: 07/17/2016 FINDINGS: Left intramedullary rosa and compression screw in place traversing an stabilizing intratrochanteric l eft hip fracture. Anatomic alignment of the femoral head and acetabulum. The visualized pelvis is grossly intact. Atherosclerotic calcification of the iliac and visualized femoral arteries. Sugges t angles overlying the left hip soft tissues. No evidence of hardware failure. IMPRESSION: Intact left intramedullary rosa and compression screw stabilizing an intertrochanteric left hip fract ure. No evidence of hardware failure. Anatomic alignment of fracture fixation. RPTAT: HH Physician Shaniqua Date Time Electronically viewed and signed by Physician Shaniqua on 07/19/2016 13:28 ESTRELLITA/
--- NOTE | 2016-07-19 13:30 | RADRPT ---
PROCEDURE: Fluoroscopy. CLINICAL INDICATION: Intraoperative fluoroscopic guidance. TECHNIQUE: Fluoroscopic guidance provided for intraoperative procedure. COMPARISON: 07/17/2016 FINDINGS: 114.7 seconds fluoroscopy time was used. 8 intraoperative spot radiographs obtained. IMPRESSION: Fluoroscopic guidance provided for intraoperative procedure. RPTAT: HH Physician Shaniqua Date Time Electronically viewed and signed by Physician Shaniqua on 07/19/2016 13:29 ESTRELLITA/
--- NOTE | 2016-07-19 14:31 | OPR ---
DATE OF OPERATION: 07/19/2016 PREOPERATIVE DIAGNOSIS: Comminuted intertrochanteric fracture of the left hip. POSTOPERATIVE DIAGNOSIS: Comminuted intertrochanteric fracture of the left hip. PROCEDURE PERFORMED: Open reduction and internal fixation of the intertrochanteric fracture of the left hip. ANESTHESIA: General anesthesia. SURGEON: Gonsalo Schuler MD OPERATION PERFORMED: Open reduction and internal fixation of the intertrochanteric fracture of the left hip utilizing IMHS system. SURGEON: Gonsalo Schuler MD PROCEDURE AND FINDINGS: Under anesthesia, the patient was placed in supine position upon the fractu re table. Utilizing fracture table and under fluoroscopic monitoring, preliminary manipulative redu ction of the fracture was carried out. Because of the unusual character of the fracture, manipulati ve reduction was somewhat difficult. The usual prep and drape was done, exposing the left hip and left thigh for following the manipulati ve reduction. The intertrochanteric area of the left hip was approached through the lateral longitudinal incision. After opening fascia obi, the intramedullary canal was entered, utilizing the tip of the greater trochanter. After confirming satisfactory position of the guide drill, the opening was enlarged wit h the cannulated drill and reamer guide was introduced into the intramedullary canal. After proper adjustment, measurement was made and it was my estimation that this patient would need a 32 cm long 10 mm wide intramedullary device with the 130-degree angle. After reaming along the reamer guide, t he selected intramedullary device in the length of 32 mm was inserted. Again, after proper rotatory adjustment, guide pin for the lag screw was properly positioned and the measurement revealed that l ag screw should be 90 mm. After inserting lag screw, the lag screw was properly locked. After irri gation and hemostasis, closure of the incision was carried out using 0 Vicryl for muscle and fascia and 2-0 Vicryl for subcutaneous tissues. Final skin closure was carried out with skin kuldip. Usu al sterile pressure dressings were applied. The patient tolerated the entire procedure very well and was sent to the recovery room in good condi tion. Dictated By: GONSALO BRUCE/NTS Conf#: [id number] DID#: [id number]
[2016-07-19] MEDS: HYDROCODONE/APAP (5/325) TAB PO PRN (14:55)
[2016-07-19] MEDS ORDERED: HYDROCODONE/APAP (5/325) TAB PO PRN (17:00)
[2016-07-19] MEDS ORDERED: morphine 2 MG INJ IV PRN (17:00)
--- NOTE | 2016-07-19 17:55 | PN ---
DATE: 07/19/2016 SUBJECTIVE: The patient is status post left hip ORIF. The patient tolerated the procedure well. T he patient was transferred back to the medical/surgical floor. The patient with no specific complai nts. She was noted to have some blood coming from the surgical site as the gauze is soaked with blo od. I discussed that with the nursing staff and Dr. Schuler was informed. He is aware and said that th is is expected. Case discussed with family as well. PHYSICAL EXAMINATION: VITAL SIGNS: The patient had a low-grade temperature of 99.9, pulse 94, respirations 20, blood pres sure 105/72, saturation is 99% on supplemental oxygen. GENERAL: The patient is no acute distress. The patient is pale. CARDIOVASCULAR: Positive S1, S2, regular rate and rhythm. LUNGS: Clear bilaterally. ABDOMEN: Soft, nontender. EXTREMITIES: No clubbing, cyanosis, or edema. Left hip area, gauze wound is in place and it is sta ined with blood. LABORATORY DATA: White count is 7.6, hemoglobin 8.9, hematocrit 26, platelet count of 111, neutroph ils 69%, lymphocytes 20%. Chemistry: Sodium 138, potassium 4.1, chloride 100, bicarbonate 31, BUN is 13, creatinine 0.58, glucose of 131. UA shows trace leukocyte esterase with RBC greater than ___ __, WBC 10 to 20 and specific gravity greater than 1.030, all suggestive of mild urinary tract infec tion. Hip x-ray done postoperatively shows intact left intramedullary rosa and compression screw sta bilizing and intertrochanteric left hip fracture. No evidence of hardware failure. Anatomic alignm ent of fracture fixation. MEDICATIONS: 1. Cefazolin q. h. 2. Morphine p.r.n. 3. [place] p.r.n. 4. Dilaudid p.r.n. 5. Fentanyl p.r.n. 6. Zofran p.r.n. 7. Normal saline at 80 mL/hour. 8. Ambien 5 at bedtime p.r.n. 9. Baclofen 10 mg daily. 10. Vitamin D 1000 daily. 11. Synthroid 50 mcg daily. 12. Protonix 40 mg daily. 13. Neurontin 300 at bedtime. 14. Mag-oxide 400 b.i.d. 15. Tylenol p.r.n. 16. Colace p.r.n. 17. Milk of magnesia p.r.n. 18. Antivert p.r.n. 19. Lovenox was discontinued, likely to be resumed tomorrow. The patient does have SCDs. ASSESSMENT AND PLAN: This is an 86-year-old Swazi female with history of hypertension, osteoarth ritis, hypothyroidism who presented with left hip fracture status post fall. 1. Left hip fracture status post ORIF. Monitor H and H. I am considering to transfuse her 1 unit of PRBCs tonight as I am concerned about the bleeding as it looks more than the usual. In addition, also her H and H has dropped significantly even prior to surgery. The patient remains on cefazolin for perioperative antibiotic prophylaxis. Lovenox to be started in the a.m. 2. History of aortic aneurysm and pulmonary nodule. We will discuss with family about obtaining an other CT scan. 3. Continue Protonix for GI prophylaxis. 4. Hypothyroidism. Continue Synthroid. 5. Physical therapy to follow the patient in acute rehabilitation evaluation at [facility]. 6. Mild urinary tract infection. We will start the patient on Rocephin 1 gram q.24h. to be starte d once she is off the Ancef. Cardiology is following. Case discussed with family. We will follow. Dictated By: ESTER CUBA/BETI Conf#: [id number] DID#: [id number]
[2016-07-19] MEDS: CEFAZOLIN 1 GM/50 ML (PMX) 50 ML IVPB SCH (18:28)
[2016-07-19] MEDS ORDERED: ACETAMINOPHEN 325 MG TAB PO ONE (20:00)
[2016-07-19] MEDS: MAGNESIUM OXIDE 400 MG TAB PO SCH ×2 (21:00→22:58)
[2016-07-19] MEDS: GABAPENTIN 300 MG CAP PO SCH ×2 (21:00→22:58)
[2016-07-20] MEDS: SOD CHLORIDE 0.9% 1,000 ML IV SCH (00:41)
[2016-07-20] MEDS: CEFAZOLIN 1 GM/50 ML (PMX) 50 ML IVPB SCH ×2 (02:00→04:24)
[2016-07-20] MEDS: HYDROCODONE/APAP (5/325) TAB PO PRN ×4 (02:46→22:49)
[2016-07-20] MEDS: PANTOPRAZOLE (EC) 40 MG TAB PO SCH (05:46)
[2016-07-20] MEDS: LEVOTHYROXINE 50 MCG TAB PO SCH (06:55)
[2016-07-20] MEDS: CEFTRIAXONE 1 GM/50 ML (PMX) 50 ML IVPB SCH (06:56)
[2016-07-20] MEDS: CHOLECALCIFEROL 1,000 UNIT TAB PO SCH (09:01)
[2016-07-20] MEDS: MAGNESIUM OXIDE 400 MG TAB PO SCH ×2 (09:01→21:04)
[2016-07-20] MEDS: BACLOFEN 10 MG TAB PO SCH (09:01)
--- NOTE | 2016-07-20 11:49 | PN ---
DATE: 07/20/2016 CARDIOLOGY FOLLOWUP SUBJECTIVE: Discussed with the staff. The patient underwent successful hip surgery yesterday. No cardiac complications has happened. Has been agitated overnight, with the staff, has been up all night. This morning appeared to be calm with no reported chest pain or pressure, denies any lisa n to me, in fact. MEDICATIONS: Reviewed as per medication reconciliation, personally reviewed. PHYSICAL EXAMINATION: VITAL SIGNS: Temperature 97.8, heart rate of 100, blood pressure 92/60, respiration rate of 18, sat urating 98%. HEENT: Normocephalic, atraumatic. No acute distress. Pupils are equal and round. CARDIOVASCULAR: Regular rate and rhythm, systolic murmur, grade I. PULMONARY: With no wheezes, rales, no rhonchi. GASTROINTESTINAL: Soft. No rebound or guarding, nontender. EXTREMITIES: Status post hip surgery. Slight edema but otherwise stable, no acute bleeding noted. LABORATORY DATA: Most recent hemoglobin was 8.9 with hematocrit of 26.4, platelet 111. ASSESSMENT AND PLAN 1. Hip fracture status post surgery now. 2. Hypertension, currently under good control, no medicines in fact. 3. Dyslipidemia, stable on statin. 4. History of thyroid disorder, on thyroid supplement. 5. Encephalopathy and agitation. RECOMMENDATIONS: We will continue with the current cardiac care. Continue the postop. DVT prophyla xis as per internal medicine and orthopedic. Continue with physical therapy as tolerated. Dictated By: ABELARDO MENDEZ MD AV/BETI Conf#: [id number] DID#: [id number] CC: ESTER KINNEY MD;*End*
[2016-07-20] MEDS ORDERED: HYDROmorphONE 1 MG/ML SYG IV PRN (13:00)
[2016-07-20] MEDS: ENOXAPARIN 40 MG/0.4 ML SYG SC SCH ×2 (13:00→15:52)
[2016-07-20 14:24] LABS: BASOPHILS % 0.5 % (0.0-2.0); EOSINOPHILS % 0.4 % (0.0-7.0); HEMATOCRIT 25.8 % (37.0-47.0); HEMOGLOBIN 8.7 g/dl (12.0-16.0); LYMPHOCYTES # 1.2 10^3/ul (0.8-2.9); MEAN CORPUSCULAR HEMOGLOBIN 32.1 pg (29.0-33.0); MEAN CORPUSCULAR HGB CONC 33.5 g/dl (32.0-37.0); MEAN CORPUSCULAR VOLUME 95.8 fl (82.0-101.0); MEAN PLATELET VOLUME 9.5 fl (7.4-10.4); MONOCYTE # 0.6 10^3/ul (0.3-0.9); MONOCYTES % 11.8 % (0.0-11.0); NEUTROPHIL # 2.9 10^3/ul (1.6-7.5); NEUTROPHILS % 61.3 % (39.0-77.0); PLATELET COUNT 123 10^3/UL (140-440); RED CELL DISTRIBUTION WIDTH 13.7 % (11.5-14.5); UNCORRECTED WBC 4.8 10^3/ul (4.8-10.8); WHITE BLOOD COUNT 4.8 10^3/ul (4.8-10.8)
[2016-07-20 14:25] LABS: CONDITION 1
[2016-07-20 14:35] LABS: INR 1.26; PROTIME 15.9 Sec (12.2-14.2); PT RATIO 1.2
[2016-07-20 14:36] LABS: POTASSIUM 3.5 mmol/L (3.5-5.1)
[2016-07-20 14:39] LABS: CREATININE 0.54 mg/dl (0.44-1.00)
--- NOTE | 2016-07-20 15:30 | PN ---
DATE: 07/20/2016 SUBJECTIVE: Patient seen, unfortunately, yesterday evening, patient was somewhat combative, so I de cided not to give Ativan. I did not want to sedate her too much or to make her more confused. I as ked for a sitter. Today patient refused labs. Since the patient overall appears to be upset, karan wallace some likely hospital acquired psychosis. Overall, appears to be in no distress, T-max 99.9 yest erday at 1:30. PHYSICAL EXAMINATION: VITAL SIGNS: Temperature 97.8, pulse is 110, respirations 18, blood pressure 93/60, saturation 98%. GENERAL: No acute distress. HEENT: Normocephalic, atraumatic. The patient is pale. CARDIOVASCULAR: S1, S2, regular rate. LUNGS: Clear. ABDOMEN: Soft, nontender. EXTREMITIES: No clubbing, cyanosis, or edema. Left hip is bandaged. No significant bleeding noted . As of note, the patient did remove her Carter yesterday when she was very anxious. LABORATORIES: No new labs today. Patient refused. We will try to obtain it at a later time. Yeny n, the patient is status post 1 unit of packed red blood cells. MEDICATIONS: 1. Ceftriaxone 1 gram q.24 hours. 2. Morphine p.r.n. 3. [place] p.r.n. 4. We will discontinue with the morphine. Also she is on normal saline at 80 mL/hr. 5. Ambien 5 at bedtime p.r.n. 6. Baclofen t.i.d. 7. Vitamin D 1000 daily. 8. Synthroid 50 mcg every day. 9. Protonix 40 mg daily. 10. Neurontin 300 at bedtime. 11. Magnesium oxide 400 b.i.d. 12. Zofran p.r.n. 13. Tylenol p.r.n. 14. [place] p.r.n. 15. Morphine p.r.n. 15. Colace as needed. 16. Milk of magnesia and p.r.n. ASSESSMENT AND PLAN: This is an unfortunate 86-year-old [place]rugu[place] female with history of hypertensio n, osteoarthritis, hypothyroidism who presented with left hip fracture status post fall. 1. Left hip fracture status post open reduction internal fixation. Monitor hemoglobin and hematocr it, status post 1 unit of PRBC. Continue suggesting changes to the left hip. Continue to monitor s ite. Case discussed briefly with Dr. Schuler. 2. Anemia. Continue to monitor hemoglobin and hematocrit. 3. History of aortic aneurysm and pulmonary nodule. Will discuss with family regarding followup. 4. Continue Protonix for GI prophylaxis. 5. Hypothyroidism. Continue Synthroid. 6. Physical therapy as tolerated per staff. The patient will actually participated today with phys ica therapy and did quite well. 7. Mild urinary tract infection. Continue Rocephin. 8. Discontinue morphine, placed on p.r.n. Dilaudid. 9. Questionable REACTION TO MORPHINE. 10. Possible transfer to acute rehab at [facility] for further care and physical therapy. Noted physical therapy recommendations for front-wheel walker, SNF or rehabilitation. We will cont inue to monitor her condition. Dictated By: ESTER CUBA/BETI Conf#: [id number] DID#: [id number]
[2016-07-20] MEDS: QUETIAPINE 25 MG TAB PO SCH ×2 (15:51→21:04)
[2016-07-20 20:33] VITALS: BP 91/63; RESP 14
[2016-07-20] MEDS: GABAPENTIN 300 MG CAP PO SCH (21:04)
[2016-07-20] MEDS ORDERED: VITAMIN A & D 5 GM OINT PACKET TOP ONE (22:53)
[2016-07-21] MEDS: PANTOPRAZOLE (EC) 40 MG TAB PO SCH (06:27)
[2016-07-21] MEDS: LEVOTHYROXINE 50 MCG TAB PO SCH (06:27)
[2016-07-21] MEDS: CEFTRIAXONE 1 GM/50 ML (PMX) 50 ML IVPB SCH ×2 (06:28→07:32)
[2016-07-21 07:45] VITALS: BP 111/65; RESP 20
[2016-07-21] MEDS: CHOLECALCIFEROL 1,000 UNIT TAB PO SCH (09:21)
[2016-07-21] MEDS: BACLOFEN 10 MG TAB PO SCH (09:21)
[2016-07-21] MEDS: MAGNESIUM OXIDE 400 MG TAB PO SCH ×2 (09:21→20:52)
[2016-07-21] MEDS: QUETIAPINE 25 MG TAB PO SCH ×2 (09:23→20:52)
[2016-07-21] MEDS: ENOXAPARIN 40 MG/0.4 ML SYG SC SCH (11:31)
--- NOTE | 2016-07-21 15:28 | PN ---
DATE: 07/21/2016 CARDIOLOGY FOLLOWUP SUBJECTIVE: The patient appears to be still confused and agitated. No reported chest pain or press ure. MEDICATIONS: Reviewed. PHYSICAL EXAMINATION: VITAL SIGNS: Temperature 98.2, heart rate of 95, blood pressure 110/65, respiration rate of 20, sat urating 93%. HEENT: Normocephalic, atraumatic. Pupils are equal. CARDIOVASCULAR: Regular rate and rhythm. PULMONARY: With no wheezes anteriorly. GASTROINTESTINAL: Soft, nontender. EXTREMITIES: Trivial edema. NEUROLOGIC: Awake. PSYCHIATRIC: Agitated, yelling and screaming at me. LABORATORY: Sodium 139, potassium 3.5, BUN of 10, creatinine 0.54, glucose 146. ASSESSMENT AND PLAN: 1. Hip fracture status post surgery. 2. Hypertension, under good control. 3. Dyslipidemia, currently stable on statin. 4. History of thyroid disorder on thyroid management. 5. Agitation, encephalopathy. RECOMMENDATIONS: The patient appears to be stable from the cardiac standpoint. Neuro workup and tr eatment as per Dr. Kinney. Pain management as per ortho. DVT prophylaxis will be continued. Jacob looney follow up p.r.n. Dictated By: ABELARDO MENDEZ MD AV/NTS Conf#: [id number] DID#: [id number] CC: ESTER KINNEY MD;*End*
[2016-07-21] MEDS: HYDROCODONE/APAP (5/325) TAB PO PRN (15:48)
[2016-07-21] MEDS: FERROUS SULFATE (EC) 325 MG TAB PO SCH (17:09)
[2016-07-21 20:23] VITALS: BP 106/63; RESP 20
[2016-07-21] MEDS: GABAPENTIN 300 MG CAP PO SCH (20:52)
[2016-07-21] MEDS: LORAZEPAM 0.5 MG TAB PO PRN (20:53)
[2016-07-22 06:13] LABS: INR 1.05; PROTIME 13.7 Sec (12.2-14.2); PT RATIO 1.1
--- NOTE | 2016-07-22 06:20 | PN ---
DATE: 07/21/2016 SUBJECTIVE: Patient seen, appears less confused, the daughter at bedside so the patient is less anxious. The patient has participated somewhat with physical therapy while the daughter was there. In addition, the patient has been tolerating oral diet better. Unfortunately, patient refused labs and was noted with intermittent anxiety once earlier today, discussed with nursing staff. PHYSICAL EXAMINATION: VITAL SIGNS: Temperature 98.2, pulse 75, respirations 20, blood pressure 111/65 , saturation 93%. GENERAL: No acute distress. HEENT: Normocephalic, atraumatic. Conjunctivae pale. CARDIOVASCULAR: S1 and S2. LUNGS: Clear. ABDOMEN: Soft, nontender. EXTREMITIES: No clubbing, cyanosis, or edema. LABORATORY DATA: White count was 4.8, hemoglobin 8.7, hematocrit 26, platelets 123. This was yesterday. BUN and creatinine was yesterday at 10/ , potassium of 3.5. Urine culture ultimately came back negative. MEDICATIONS: 1. Seroquel 25 b.i.d. 2. Dilaudid 0.5 IV q.4h. p.r.n. 3. Lovenox 40 mg subcutaneous daily. 4. Rocephin 1 gram q.24 hours. 5. Wesley 1 tab q.3h. p.r.n. 6. Ambien p.r.n. 7. Baclofen 10 mg daily. 8. Vitamin D 1000 daily. 9. Synthroid 50 mcg daily. 10. Protonix 40 mg daily. 11. Neurontin 300 mg at bedtime. 12. Magnesium oxide 400 mg b.i.d. 13. Tylenol p.r.n. 14. [place] p.r.n. 15. Colace p.r.n. 16. Milk of magnesium p.r.n. 17. Antivert p.r.n. ASSESSMENT AND PLAN: This is an 86-year-old Luxembourgish-speaking female with history of hypertension, osteoarthritis, hypothyroidism who presented with left hip fracture status post fall, now status post open reduction internal fixation day #2 postop. 1. Status post left hip open reduction internal fixation, continue physical therapy, monitor hemoglobin and hematocrit, consider another unit of packed red blood cells, awaiting possible transfer to the acute rehab at [facility] for ongoing therapy. 2. Anemia. Monitor hemoglobin and hematocrit. Again, may consider another transfusion. 3. History of aortic aneurysm and pulmonary nodule. Will considering ordering a CT scan of the chest, will discuss with family. 5. Continue Protonix for GI prophylaxis. 6. Hypothyroidism, on Synthroid. 7. Mild urinary tract infection. Continue Rocephin. 8. Anxiety disorder. I put her on Seroquel. May consider low dose Ativan, remains with a 1:1 sitter but overall clinically improving. Case discussed with daughter at bedside. We will follow. Dictated By: ESTER CUBA/BETI Conf#: [id number] DID#: [id number] MTDD
[2016-07-22 06:25] LABS: POTASSIUM 3.8 mmol/L (3.5-5.1)
[2016-07-22 06:28] LABS: CREATININE 0.5 mg/dl (0.44-1.00)
[2016-07-22 06:29] LABS: CALCIUM 7.8 mg/dl (8.4-10.2)
[2016-07-22] MEDS: CEFTRIAXONE 1 GM/50 ML (PMX) 50 ML IVPB SCH (06:37)
[2016-07-22] MEDS: HYDROCODONE/APAP (5/325) TAB PO PRN ×2 (06:37→21:12)
[2016-07-22 06:38] LABS: RED BLOOD COUNT 2.34 10^6/ul (4.20-5.40); WHITE BLOOD COUNT 4.4 10^3/ul (4.8-10.8)
[2016-07-22 06:39] LABS: BASOPHILS % 0.5 % (0.0-2.0); EOSINOPHILS # 0.2 10^3/ul (0.0-0.5); EOSINOPHILS % 3.4 % (0.0-7.0); HEMOGLOBIN 7.5 g/dl (12.0-16.0); LYMPHOCYTES # 1.3 10^3/ul (0.8-2.9); MEAN CORPUSCULAR HEMOGLOBIN 32.1 pg (29.0-33.0); MEAN CORPUSCULAR HGB CONC 32.6 g/dl (32.0-37.0); MEAN CORPUSCULAR VOLUME 98.3 fl (82.0-101.0); MONOCYTE # 0.5 10^3/ul (0.3-0.9); MONOCYTES % 10.9 % (0.0-11.0); NEUTROPHIL # 2.4 10^3/ul (1.6-7.5); NEUTROPHILS % 54.5 % (39.0-77.0); PLATELET COUNT 172 10^3/UL (140-440)
[2016-07-22] MEDS: LEVOTHYROXINE 50 MCG TAB PO SCH (06:44)
[2016-07-22] MEDS: PANTOPRAZOLE (EC) 40 MG TAB PO SCH (06:44)
--- NOTE | 2016-07-22 07:40 | PN ---
DATE: Second postop day afebrile. Hemoglobin and hematocrit is 8.7/25.8. No signs of neurovascular compr omise involving the left lower extremity. Postop x-ray showed satisfactory alignment of the fractur e with proper position of the fixation device. Have been up with physical therapy. Dictated By: GONSALO BRUCE/BETI Conf#: [id number] DID#: [id number]
[2016-07-22] MEDS: FERROUS SULFATE (EC) 325 MG TAB PO SCH (09:29)
[2016-07-22] MEDS: BACLOFEN 10 MG TAB PO SCH (09:29)
[2016-07-22] MEDS: MAGNESIUM OXIDE 400 MG TAB PO SCH ×2 (09:29→21:09)
[2016-07-22] MEDS: CHOLECALCIFEROL 1,000 UNIT TAB PO SCH (09:29)
[2016-07-22] MEDS: QUETIAPINE 25 MG TAB PO SCH ×2 (09:29→21:09)
[2016-07-22] MEDS: ENOXAPARIN 40 MG/0.4 ML SYG SC SCH (09:35)
--- NOTE | 2016-07-22 12:20 | PN ---
DATE: 07/22/2016 SUBJECTIVE: Patient is seen, alert, remains anxious, stating that she wants to go home. Labs this morning revealed the patient's hemoglobin has dropped to 7.5. Yesterday she refused labs. Plan to transfuse her 2 units of packed red blood cells. Again, the patient remains agitated. Case was dis cussed with nursing staff. Of note, the patient also is slightly tachycardic, but afebrile. I appr eciate Dr. Edu Schuler's followup. PHYSICAL EXAMINATION: VITAL SIGNS: Temperature is 98.4, pulse 102, respirations 20, blood pressure 106/63, saturation 96% on room air. GENERAL: The patient remains anxious, pale. CARDIOVASCULAR: S1 and S2, regular rate. LUNGS: Decreased bilaterally, otherwise clear. ABDOMEN: Soft, nontender. EXTREMITIES: There is no clubbing, cyanosis, or edema. Patient is moving all extremities. LABORATORY: Today, white count is 4.4, hemoglobin 7.5, hematocrit 23, platelet count of 172. Neutr ophils 55%, lymphocytes 30%. Chemistry: Sodium 138, potassium 3.8, chloride 101, bicarbonate 31, B UN is 12, creatinine , glucose 110. UA essentially was positive on admission. Trace leukocyte esterase, WBC 10 to 25. MEDICATIONS: Include the followin. Ferrous sulfate 325 daily. 2. Ativan 0.5 p.o. q.6 p.r.n. 3. Seroquel 25 b.i.d. 4. Dilaudid 0.5 IV q.4 p.r.n. 5. Lovenox 40 mg subcutaneous daily. 6. Rocephin 1 gram q.24 hours. 7. [place] 1 tab q.3 p.r.n. 8. Ambien 5 mg at bedtime p.r.n. 9. Baclofen 10 mg daily. 10. Vitamin D 1000 daily. 11. Synthroid 550 mcg daily. 12. Protonix 40 mg daily. 13. Neurontin 300 mg at bedtime. 14. Magnesium oxide 400 b.i.d. 15. Zofran p.r.n. 16. Tylenol p.r.n. 17. [place] p.r.n. 18. Colace p.r.n. 19. Magnesia p.r.n. ASSESSMENT AND PLAN: This is a very unfortunate 86-year-old Icelandic-speaking female with a history of hypertension, osteoarthritis and hypothyroidism who presented with a left hip fracture status po st fall, now status post open reduction internal fixation, postop day #3. 1. Postop left hip open reduction internal fixation. Blood products will be given. Monitor the pa tient's p.o. intake. Continue deep venous thrombosis prophylaxis with Lovenox. Continue incentive spirometer. Awaiting participation with physical therapy for a possible plan to transfer to [facility]. 2. Anemia. The patient was transfused 2 units of PRBC. No active bleeding, but this is postop ane majo. 3. History of aortic aneurysm and pulmonary nodule. Once less anxious and blood products are given , will discuss with family regarding ordering a CT scan of the chest to evaluate the above, as CAT s can in 2012 showed a 4.5 thoracic aneurysm and a pulmonary nodule. 4. Continue Protonix for gastrointestinal prophylaxis. 5. Hypothyroidism. On Synthroid 50 mcg daily. 6. Mild urinary tract infection. Remains on Rocephin. Will continue that for another day. 7. Anxiety disorder. On Seroquel and Ativan as needed. The patient overall is easily agitated. 8. Monitor the patient's p.o. intake. We will add protein supplements as well. We will follow. Dictated By: ESTER CUBA/BETI Conf#: [id number] DID#: [id number]
[2016-07-22] MEDS: LORAZEPAM 2 MG INJ IV PRN (14:27)
[2016-07-22] MEDS: GABAPENTIN 300 MG CAP PO SCH (21:09)
[2016-07-22 21:30] VITALS: BP 142/87; PULSE 101; RESP 18
[2016-07-23] MEDS: LORAZEPAM 2 MG INJ IV PRN (00:57)
[2016-07-23 05:51] LABS: BASOPHILS % 0.4 % (0.0-2.0); EOSINOPHILS # 0.2 10^3/ul (0.0-0.5); EOSINOPHILS % 3.4 % (0.0-7.0); HEMATOCRIT 34.3 % (37.0-47.0); HEMOGLOBIN 11.4 g/dl (12.0-16.0); LYMPHOCYTES # 2.1 10^3/ul (0.8-2.9); LYMPHOCYTES % 35.6 % (15.0-51.0); MEAN CORPUSCULAR HGB CONC 33.3 g/dl (32.0-37.0); MEAN CORPUSCULAR VOLUME 90.1 fl (82.0-101.0); MEAN PLATELET VOLUME 9.3 fl (7.4-10.4); MONOCYTE # 0.6 10^3/ul (0.3-0.9); MONOCYTES % 10.5 % (0.0-11.0); NEUTROPHIL # 2.9 10^3/ul (1.6-7.5); NEUTROPHILS % 50.1 % (39.0-77.0); PLATELET COUNT 210 10^3/UL (140-440); RED BLOOD COUNT 3.81 10^6/ul (4.20-5.40); RED CELL DISTRIBUTION WIDTH 19.2 % (11.5-14.5); UNCORRECTED WBC 5.8 10^3/ul (4.8-10.8); WHITE BLOOD COUNT 5.8 10^3/ul (4.8-10.8)
[2016-07-23 05:55] LABS: CONDITION 1; LH ANALYZER COMMENTS 1
[2016-07-23 06:00] LABS: INR 1.02; PROTIME 13.4 Sec (12.2-14.2)
[2016-07-23 06:09] LABS: POTASSIUM 4.4 mmol/L (3.5-5.1)
[2016-07-23 06:11] LABS: CREATININE 0.56 mg/dl (0.44-1.00)
[2016-07-23 06:12] LABS: CALCIUM 8.5 mg/dl (8.4-10.2)
[2016-07-23 06:18] LABS: MAGNESIUM 2.1 mg/dl (1.7-2.5); PHOSPHORUS 2.7 mg/dl (2.5-4.9)
[2016-07-23] MEDS: LEVOTHYROXINE 50 MCG TAB PO SCH (06:55)
[2016-07-23] MEDS: PANTOPRAZOLE (EC) 40 MG TAB PO SCH (06:55)
[2016-07-23 07:32] VITALS: BP 136/84; RESP 18
[2016-07-23] MEDS: CEFTRIAXONE 1 GM/50 ML (PMX) 50 ML IVPB SCH (07:33)
[2016-07-23] MEDS: CHOLECALCIFEROL 1,000 UNIT TAB PO SCH (09:44)
[2016-07-23] MEDS: BACLOFEN 10 MG TAB PO SCH (09:44)
[2016-07-23] MEDS: MAGNESIUM OXIDE 400 MG TAB PO SCH ×3 (09:44→21:48)
[2016-07-23] MEDS: FERROUS SULFATE (EC) 325 MG TAB PO SCH (09:44)
[2016-07-23] MEDS: QUETIAPINE 25 MG TAB PO SCH ×2 (09:45→21:48)
[2016-07-23] MEDS: ENOXAPARIN 40 MG/0.4 ML SYG SC SCH (09:47)
[2016-07-23] MEDS: METOPROLOL 25 MG TAB PO SCH ×3 (09:53→21:48)
--- NOTE | 2016-07-23 10:56 | PN ---
DATE: 07/23/2016 SUBJECTIVE: The patient is status post 2 units of packed red blood cells, tolerated it well. Unfor tunately, the patient's appetite is not very good. She is not eating much. She still has a 1:[address] Per report, she was somewhat anxious yesterday. She is combative at times when the nurses try to clean her. I tried to call the phone numbers on the chart to contact family members with no suc cess. OBJECTIVE: VITAL SIGNS: Temperature 98.3, pulse 75, respirations 18, blood pressure 136/84, saturation 96% on room air. GENERAL: The patient is in no acute distress, resting comfortably, pale. CARDIOVASCULAR: Positive S1 and S2, slightly tachycardic. LUNGS: Decreased bilaterally. ABDOMEN: Soft, nontender. EXTREMITIES: No clubbing, cyanosis, or edema. LABORATORY TESTS: White count is 5.8, hemoglobin 11.4, hematocrit 34, platelet count 210, neutrophi ls 50%, lymphocytes 36%. Chemistry: Sodium is 142, potassium 4.4, chloride 101, bicarbonate 31, BU N is 14, creatinine 0.56, glucose 123. UA shows trace leukocyte esterase and WBC 10 to 25. MEDICATIONS: Include 1. Ativan 0.5 IV q. 6 p.r.n. 2. Ferrous sulfate 325 daily. 3. Ativan 0.5 q. 6 p.r.n. 4. Seroquel 25 b.i.d. 5. Dilaudid 0.5 IV q. 4 p.r.n. 6. Lovenox 40 mg daily. 7. Rocephin 1 gram q. 24 hours. 8. [place] p.r.n. 9. Ambien p.r.n. 10. Baclofen 10 mg daily. 11. Vitamin D 1000 daily. 12. Synthroid 50 mcg daily. 13. Protonix 40 mg daily. 14. Neurontin 300 at bedtime. 15. Magnesium oxide 400 b.i.d. 16. Zofran p.r.n. 17. Tylenol p.r.n. 18. Colace p.r.n. 19. Milk of Magnesia p.r.n. 20. Antivert p.r.n. ASSESSMENT AND PLAN: This is an 86-year-old Yakut-speaking female with history of hypertension, osteoarthritis, and hypothyroidism who presented with left hip fracture status post fall, now status post open reduction internal fixation of the left hip, postop day #4. 1. Postoperative day #4, left hip ORIF. Overall, medically stable, status post 2 units of PRBC. C ontinue physical therapy if the patient will allow. Pain control as needed. Try to place her in [facility] acute rehab at [facility] versus SNF versus going home with home health. We will try to contact family member regarding plan of care. 2. Anemia, status post transfusion. H and H are stable. We will monitor. Currently, no evidence of fluid overload state. 3. History of thoracic aortic aneurysm and pulmonary nodule. We would recommend another CT scan of the chest when the patient is more compliant or stable after she recovers from this operation. 4. Continue Protonix for GI prophylaxis. 5. Hypothyroidism, on Synthroid 50 mcg daily. 6. Mild urinary tract infection on Rocephin. We will discontinue antibiotics. 7. Anxiety. Remains on Seroquel. 8. Tachycardia. We will add low dose beta blockers. 9. Continue gastrointestinal prophylaxis and DVT prophylaxis. We will follow. Dictated By: ESTER CUBA/BETI Conf#: [id number] DID#: [id number]
[2016-07-23] MEDS: ACETAMINOPHEN 325 MG TAB PO PRN (13:49)
[2016-07-23 19:35] VITALS: BP 155/82; RESP 20
[2016-07-23] MEDS: GABAPENTIN 300 MG CAP PO SCH (21:48)
[2016-07-24 00:09] VITALS: BP 135/94; PULSE 104; RESP 16
[2016-07-24 03:53] VITALS: BP 132/88; PULSE 107; RESP 22
[2016-07-24] MEDS: PANTOPRAZOLE (EC) 40 MG TAB PO SCH (06:00)
[2016-07-24] MEDS: LEVOTHYROXINE 50 MCG TAB PO SCH (06:50)
[2016-07-24] MEDS: CHOLECALCIFEROL 1,000 UNIT TAB PO SCH (09:00)
[2016-07-24] MEDS: MAGNESIUM OXIDE 400 MG TAB PO SCH ×2 (09:00→21:00)
[2016-07-24] MEDS: QUETIAPINE 25 MG TAB PO SCH ×2 (09:21→20:09)
[2016-07-24] MEDS: BACLOFEN 10 MG TAB PO SCH (09:22)
[2016-07-24] MEDS: METOPROLOL 25 MG TAB PO SCH ×2 (09:22→21:00)
[2016-07-24] MEDS: FERROUS SULFATE (EC) 325 MG TAB PO SCH (09:28)
[2016-07-24] MEDS: ENOXAPARIN 40 MG/0.4 ML SYG SC SCH (09:30)
[2016-07-24 09:55] LABS: BASOPHILS % 0.4 % (0.0-2.0); EOSINOPHILS # 0.1 10^3/ul (0.0-0.5); EOSINOPHILS % 1.7 % (0.0-7.0); HEMATOCRIT 33.7 % (37.0-47.0); HEMOGLOBIN 11.2 g/dl (12.0-16.0); LYMPHOCYTES # 1.4 10^3/ul (0.8-2.9); LYMPHOCYTES % 20.9 % (15.0-51.0); MEAN CORPUSCULAR HEMOGLOBIN 29.9 pg (29.0-33.0); MEAN CORPUSCULAR HGB CONC 33.2 g/dl (32.0-37.0); MONOCYTE # 0.7 10^3/ul (0.3-0.9); MONOCYTES % 10.5 % (0.0-11.0); NEUTROPHIL # 4.4 10^3/ul (1.6-7.5); NEUTROPHILS % 66.5 % (39.0-77.0); PLATELET COUNT 262 10^3/UL (140-440); RED BLOOD COUNT 3.74 10^6/ul (4.20-5.40); RED CELL DISTRIBUTION WIDTH 18.6 % (11.5-14.5); UNCORRECTED WBC 6.6 10^3/ul (4.8-10.8); WHITE BLOOD COUNT 6.6 10^3/ul (4.8-10.8)
[2016-07-24 09:56] LABS: CONDITION 1; LH ANALYZER COMMENTS 1
[2016-07-24 09:58] LABS: INR 1.06; PROTIME 13.8 Sec (12.2-14.2); PT RATIO 1.1
[2016-07-24 10:00] LABS: POTASSIUM 3.9 mmol/L (3.5-5.1)
[2016-07-24 10:02] LABS: CREATININE 0.47 mg/dl (0.44-1.00)
[2016-07-24 10:03] LABS: CALCIUM 8.3 mg/dl (8.4-10.2)
[2016-07-24] MEDS: ACETAMINOPHEN 325 MG TAB PO PRN (14:01)
--- NOTE | 2016-07-24 15:42 | PN ---
DATE: 07/24/2016 CARDIOLOGY FOLLOWUP SUBJECTIVE: Discussed with the staff. The patient with no chest pain or pressure, has been less ag itated, doing better today. MEDICATIONS: Reviewed. PHYSICAL EXAMINATION: VITAL SIGNS: Temperature 97.6, heart rate 100, blood pressure 130/88, respiration rate of 22, satur ating 98%. HEENT: Normocephalic, atraumatic. Pupils are equal. CARDIOVASCULAR: Regular rate and rhythm. PULMONARY: No wheezes. GASTROINTESTINAL: Soft. EXTREMITIES: Status post surgery. NEUROLOGIC: Awake, responds appropriately. LABORATORY: WBC of 6.6, hemoglobin 11.2, platelets 2 . Sodium 139, potassium 3.9, BUN of 11, c reatinine 0.47, glucose 130. ASSESSMENT AND PLAN: 1. Status post surgery. 2. Anemia. 3. History of thoracic aneurysm, pulmonary nodule. 4. Thyroid disorder. 5. Hypertension. 6. Anxiety. 7. Tachycardia. RECOMMENDATIONS: We will continue with the current cardiac care. Discharge plan is in process. Co ntinue the postop care. DVT prophylaxis. Dictated By: ABELARDO MENDEZ MD AV/BETI Conf#: [id number] DID#: [id number] CC: ESTER KINNEY MD;*End*
--- NOTE | 2016-07-24 17:49 | PN ---
DATE: 07/24/2016 SUBJECTIVE: Patient seen. Family is present so the patient appears to be less anxious when they ar e there and she is eating when the family is present. Case discussed with family and charge nurse omi caban. Still awaiting acute rehab bed at [facility] as the patient is partici pating now more with physical therapy. PHYSICAL EXAMINATION: VITAL SIGNS: Temperature 97.6, pulse 107, respirations 18, blood pressure 132/88, saturation 98% on 2 liters. GENERAL: The patient is in no acute distress, better, smiling, pale. CARDIOVASCULAR: S1 and S2, slightly tachycardic. LUNGS: Clear. ABDOMEN: Soft, nontender. EXTREMITIES: No clubbing, cyanosis or edema. Bilateral leg squeezers were noted. LABORATORY DATA: Sodium 139, potassium 3.9, chloride 102, bicarbonate 26, BUN is 11, creatinine 0.4 7, glucose of 130. White count is 6.6, hemoglobin 11.2, hematocrit 34, platelets 62, neutrophils 67 %, lymphocytes 21%, monocytes 11%. INR 1.06. MICROBIOLOGY: Urine culture is negative. MEDICATIONS: 1. Lopressor 25 b.i.d. 2. Ativan 0.5 IV q.6h. p.r.n. 3. Ferrous sulfate 325 mg daily. 4. Ativan 0.5 q.6h. p.r.n. 5. Seroquel 25 b.i.d. 6. Dilaudid 0.5 IV q.4h. p.r.n. 7. Lovenox 40 mg subcutaneous daily. 8. [place] 5 q.3h. p.r.n. 9. Ambien p.r.n. 10. Baclofen 10 mg daily. 11. Vitamin D 1000 daily. 12. Synthroid 50 mcg before breakfast. 13. Protonix 40 mg daily. 14. Neurontin 300 at bedtime. 15. Mag-Ox 400 b.i.d. 16. Zofran p.r.n. 17. Tylenol p.r.n. 18. [place] p.r.n. 19. Colace p.r.n. 20. Milk of magnesia p.r.n. 21. Antivert p.r.n. ASSESSMENT AND PLAN: This 86-year-old English-speaking female with history of hypertension, osteoa rthritis, hypothyroidism who presented with left hip fracture status post ORIF day #5 postop. 1. Postop day #5 for left hip ORIF awaiting acute rehabilitation transfer. Final decision hopefull y will be made soon. Continue deep vein thrombosis prophylaxis and gastrointestinal prophylaxis, pa in control, physical therapy. 2. Anemia, status post 2 units of PRBC, responded well. 3. History of thoracic aortic aneurysm, pulmonary nodule. Recommend CT scan when the patient is mo re stable, can be deferred as family is aware. 4. Hypothyroidism. Continue Synthroid. 5. Status post UTI treated with Rocephin. 6. Persistent tachycardia. Continue low dose beta soren, anxiety and pain may be a contributing factor. 7. Case discussed with family. 8. Decreased p.o. intake. Patient eats more when family is present as they bring also food from [facility]. Continue to monitor. 9. Psychosis. Remains on Seroquel and Ativan. We will follow. Dictated By: ESTER CUBA/BETI Conf#: [id number] DID#: [id number]
[2016-07-24] MEDS: GABAPENTIN 300 MG CAP PO SCH (21:00)
[2016-07-24 22:21] VITALS: BP 143/79; PULSE 100; RESP 18
[2016-07-25] MEDS: ACETAMINOPHEN 325 MG TAB PO PRN ×2 (04:25→20:25)
[2016-07-25] MEDS: PANTOPRAZOLE (EC) 40 MG TAB PO SCH ×2 (06:00→06:03)
[2016-07-25] MEDS: LEVOTHYROXINE 50 MCG TAB PO SCH ×3 (06:03→08:51)
[2016-07-25 07:37] VITALS: BP 125/76; RESP 18
[2016-07-25] MEDS: QUETIAPINE 25 MG TAB PO SCH ×2 (08:51→20:25)
[2016-07-25] MEDS: MAGNESIUM OXIDE 400 MG TAB PO SCH ×2 (08:51→20:27)
[2016-07-25] MEDS: BACLOFEN 10 MG TAB PO SCH (08:51)
[2016-07-25] MEDS: FERROUS SULFATE (EC) 325 MG TAB PO SCH (08:51)
[2016-07-25] MEDS: CHOLECALCIFEROL 1,000 UNIT TAB PO SCH (08:52)
[2016-07-25] MEDS: METOPROLOL 25 MG TAB PO SCH ×2 (08:53→20:32)
[2016-07-25] MEDS: ENOXAPARIN 40 MG/0.4 ML SYG SC SCH (08:55)
[2016-07-25] MEDS ORDERED: VITAMIN A & D 5 GM OINT PACKET TOP ONE (09:03)
--- NOTE | 2016-07-25 16:52 | PDOCDIS ---
Discharge Instructions CONDITION Patient Condition: Stable ACTIVITY: Activity Restrictions: Slowly Increase Activity FOLLOW UP/APPOINTMENTS Appointments see reconciliation ESTER KINNEY MD Jul 25, 2016 16:51
--- NOTE | 2016-07-25 18:07 | PN ---
DATE: 07/25/2016 SUBJECTIVE: No new cardiac event. No chest pain or pressure. No palpitation. The patient ____ in termittently get agitated but overall has been stable and improved, especially when the family is ar ound. Discussed with the staff. MEDICATIONS: Reviewed. PHYSICAL EXAMINATION: VITAL SIGNS: Temperature 98.4, heart rate of 93, blood pressure 125/76, respiratory rate of 18, sat urating 95%. HEENT: Normocephalic, atraumatic. Pupils are equal. CARDIOVASCULAR: Regular rate and rhythm. PULMONARY: Anteriorly with no wheezes. GASTROINTESTINAL: Soft, nontender. EXTREMITIES: Status post surgery, otherwise stable. NEUROLOGIC: Awake, responds appropriately now. ASSESSMENT AND PLAN: 1. Hip fracture, status post surgery. 2. Anemia. 3. History of thoracic aneurysm. 4. History of thyroid disorder. 5. Hypertension. 6. Anxiety. 7. Tachycardia. RECOMMENDATIONS: Will continue with the current cardiac care. Stable for transfer to acute rehab. Dictated By: ABELARDO MENDEZ MD AV/BETI Conf#: [id number] DID#: [id number] CC: ESTER KINNEY MD;*EndCC*
--- NOTE | 2016-07-25 18:50 | DS ---
DATE OF ADMISSION: 07/17/2016 DATE OF DISCHARGE: 07/25/2016 The patient will be transferred to the acute rehab at [facility]. REASON FOR ADMISSION: Left hip fracture. HOSPITAL COURSE: The patient is an 86-year-old Slovak-speaking female with history of hypertensio n, osteoarthritis, dyslipidemia, osteoporosis who is very well known to me back in 2012, when she un derwent right hip ORIF. The patient overall is doing quite well. She is ambulatory with good funct ional capacity. Unfortunately, on the day of admission, she sustained a fall and was complaining of left hip pain. She was brought into [facility]. X-ray showed a comminuted inter trochanteric fracture deformity of the left hip, chronic right inferior and superior pubic ramus fra cture of the right hip with intramedullary rosa in place. The patient was admitted for further care. Multiple physicians were consulted, including Dr. Nelson, the upkeep worker, who is specialist for clearance and Dr. Edu Schuler, the orthopedic doctor. Ultimately, the patient underwent an echocardio gram which showed preserved ejection fraction of 65% with stage I diastolic dysfunction, as the lalito ent does have good functional capacity. The patient underwent surgery on 07/19/2016 where she unde rwent ORIF of the intertrochanteric fracture of the left hip. Patient tolerated the procedure well. HOSPITAL COURSE: She was treated for mild urinary tract infection. In addition, she had episodes o f psychosis, pulling IV or Carter out, etc. requiring 1:1 sitter and medications. Also, her progress was slow. She also was started to be seen by physical therapy and was willing to participate. It was decided to transfer her now to the acute rehab at [facility] for further reha bilitation. Vital signs are stable. Temperature 98.2, pulse 93, respirations 18, blood pressure 12 5/76, saturation 95% on room air. GENERAL: The patient is in no acute distress. She did receive 2 units of packed red blood cells p ostoperatively as she was noted to have a low hemoglobin of 7.5, hematocrit of 23. FINAL DIAGNOSES: 1. Left hip fracture. 2. Status post left hip open reduction internal fixation. 3. Anemia. 4. Tachycardia. 5. Psychosis. 6. Urinary tract infection. 7. Mild dementia and hospital psychosis. 8. History of thoracic aortic aneurysm measuring 4.5 cm, a few years back. 9. Hypothyroidism. 10. Dyslipidemia. 11. Hypertension. 12. Osteoporosis. CONDITION ON TRANSFER ON DISCHARGE: Fair. DISCHARGE MEDICATIONS: She will be discharged with the following medications: 1. Tylenol 650 q.6h. p.r.n. for pain. 2. Baclofen 10 mg daily. 3. Vitamin D 1000 mg daily. 4. Colace 100 mg twice a day. 5. Lovenox 40 mg subcutaneous daily. 6. Ferrous sulfate 325 daily. 7. Neurontin 300 mg at night. 8. [place] 5/325 q.6h. p.r.n. 9. Dilaudid 0.5 IV q.4h. p.r.n. 10. Synthroid 50 mcg daily. 11. Ativan 0.5 q.6h. p.r.n. for anxiety. 12. Milk of magnesia as needed for constipation. 13. Magnesium oxide 400 mg daily. 14. Antivert 25 t.i.d. p.r.n. for dizziness. 15. Lopressor 25 mg b.i.d. 16. Zofran 4 mg IV q.6h. p.r.n. nausea, vomiting. 17. Protonix 40 mg daily. 18. Seroquel 25 b.i.d. 19. Zolpidem 5 mg at bedtime p.r.n. for insomnia. 20. She was on Aggrenox 1 cap b.i.d. and we can restart that. 21. Namenda also was stopped 28 mg daily. 22. Crestor 20 mg at bedtime. ACTIVITY: I discussed the case with family member on a regular basis. We will follow the patient's p.o. intake, as it has been somewhat marginal during her stay. We will follow. Dictated By: ESTER CUBA/BETI Conf#: [id number] DID#: [id number]
[2016-07-25] MEDS: GABAPENTIN 300 MG CAP PO SCH (20:25)
[2016-07-25] MEDS: LORAZEPAM 0.5 MG TAB PO PRN (20:25)
[2016-07-25 20:42] VITALS: BP 131/80; RESP 20
[2016-07-26 02:04] VITALS: BP 120/72; PULSE 92; RESP 18
[2016-07-26 05:40] LABS: CREATININE 0.5 mg/dl (0.44-1.00)
[2016-07-26 05:41] LABS: CALCIUM 8.4 mg/dl (8.4-10.2)
[2016-07-26 05:43] LABS: BASOPHILS % 0.6 % (0.0-2.0); EOSINOPHILS # 0.2 10^3/ul (0.0-0.5); EOSINOPHILS % 3.7 % (0.0-7.0); HEMOGLOBIN 10.9 g/dl (12.0-16.0); LYMPHOCYTES # 1.9 10^3/ul (0.8-2.9); MEAN CORPUSCULAR HEMOGLOBIN 29.8 pg (29.0-33.0); MEAN CORPUSCULAR HGB CONC 32.9 g/dl (32.0-37.0); MEAN CORPUSCULAR VOLUME 90.7 fl (82.0-101.0); MEAN PLATELET VOLUME 9.2 fl (7.4-10.4); MONOCYTE # 0.7 10^3/ul (0.3-0.9); MONOCYTES % 10.9 % (0.0-11.0); NEUTROPHIL # 3.5 10^3/ul (1.6-7.5); NEUTROPHILS % 54.8 % (39.0-77.0); PLATELET COUNT 292 10^3/UL (140-440); RED BLOOD COUNT 3.64 10^6/ul (4.20-5.40); RED CELL DISTRIBUTION WIDTH 18.9 % (11.5-14.5); UNCORRECTED WBC 6.4 10^3/ul (4.8-10.8); WHITE BLOOD COUNT 6.4 10^3/ul (4.8-10.8)
[2016-07-26 05:45] LABS: CONDITION 1; INR 1.05; LH ANALYZER COMMENTS 1; PROTIME 13.7 Sec (12.2-14.2); PT RATIO 1.1; SUSPECT 1
[2016-07-26] MEDS: PANTOPRAZOLE (EC) 40 MG TAB PO SCH (06:44)
[2016-07-26] MEDS: LEVOTHYROXINE 50 MCG TAB PO SCH (06:44)
[2016-07-26 08:30] VITALS: BP 120/69; RESP 19
[2016-07-26] MEDS: BACLOFEN 10 MG TAB PO SCH (10:04)
[2016-07-26] MEDS: CHOLECALCIFEROL 1,000 UNIT TAB PO SCH (10:05)
[2016-07-26] MEDS: FERROUS SULFATE (EC) 325 MG TAB PO SCH (10:05)
[2016-07-26] MEDS: MAGNESIUM OXIDE 400 MG TAB PO SCH ×2 (10:05→20:34)
[2016-07-26] MEDS: QUETIAPINE 25 MG TAB PO SCH ×2 (10:05→20:35)
[2016-07-26] MEDS: METOPROLOL 25 MG TAB PO SCH ×2 (10:06→20:35)
[2016-07-26] MEDS: ENOXAPARIN 40 MG/0.4 ML SYG SC SCH (10:07)
--- NOTE | 2016-07-26 11:18 | PN ---
DATE: 07/26/2016 CARDIOLOGY FOLLOWUP SUBJECTIVE: Discussed with the staff. Discussed with the patient's family including daughter. The patient is less agitated this morning while the family is around. Apparently get agitated again at nighttime especially when the family is not around. No chest pain or pressure. No palpitation. Sh yamila has minimal hip pain as well. MEDICATIONS: Reviewed as per medical reconciliation, personally reviewed. PHYSICAL EXAMINATION: VITAL SIGNS: Temperature 98.4, heart rate of 92, blood pressure 120/72, respiration rate of 18, sat urating 95%. HEENT: Normocephalic, atraumatic. No acute distress. Pupils are equal and round. CARDIOVASCULAR: Regular rate and rhythm, systolic murmur. PULMONARY: With no wheezes or rhonchi. GASTROINTESTINAL: Soft. No rebound or guarding. Nontender. PULMONARY: No wheezes or rhonchi. EXTREMITIES: Left lower extremity thigh edema, status post-surgery. No bleeding, noted. NEUROLOGIC: Awake and alert, responds appropriately. PSYCHIATRIC: Appeared to be calm and pleasant. LABORATORY: WBC of 6.4, hemoglobin 10.9, platelets 29.2. Sodium 140, potassium 4, BUN of 16, creat inine 0.5, glucose 119. ASSESSMENT AND PLAN: 1. Hip fracture status post-surgery. 2. Hypertension, under good control now. 3. Anemia, currently appeared to be stable. 4. History of thoracic aneurysm, appeared to be stable. 5. History of thyroid disorder on supplement. 6. Anxiety and encephalopathy. 7. Tachycardia, improved. RECOMMENDATIONS: We will continue with the current cardiac care. Awaiting rehabilitation transfer. Postop care to be continued. Dictated By: ABELARDO MENDEZ MD AV/BETI Conf#: [id number] DID#: [id number] CC: ESTER KINNEY MD;*EndCC*
--- NOTE | 2016-07-26 17:27 | PN ---
DATE: 07/26/2016 The discharge yesterday was delayed as apparently they did not accept her yesterday, but today case discussed with nursing staff and charge nurse. The patient to be transferred today to the acute re hab at [facility]. PHYSICAL EXAMINATION: VITAL SIGNS: Temperature 98.4, pulse 92, respirations 18, blood pressure 120/72, saturation 95% on room air. GENERAL: The patient is in no acute distress, slightly anxious, pale. CARDIOVASCULAR: S1 and S2, regular rate. LUNGS: Clear. ABDOMEN: Soft, nontender. EXTREMITIES: Patient is moving all extremities. She has a bandage in the left hip area where she h ad the surgery. LABORATORIES: Labs today shows a white count of 6.4, hemoglobin 10.9, hematocrit 33, platelet count 292, neutrophils 55%, lymphocytes 30%. Chemistry: Sodium 140, potassium 4.0, chloride 104, bicarb shannon 27, BUN is 16, creatinine 0.5, glucose of 119. MEDICATIONS: Reviewed and included: 1. Lopressor 25 b.i.d. 2. Ativan 0.5 IV q.6h. p.r.n. 3. Ferrous sulfate 25 mg daily. 4. Ativan p.r.n. 5. Seroquel 25 b.i.d. 6. Dilaudid 0.5 IV q.4 hours p.r.n. 7. Lovenox 40 mg subcutaneous daily. 8. [place] 1 tab q.3h. p.r.n. 9. Ambien 5 mg at bedtime p.r.n. 10. Baclofen 10 mg daily. 11. Vitamin D 1000 daily. 12. Synthroid 50 mcg daily. 13. Protonix 40 mg daily. 14. Neurontin 300 at bedtime. 15. Magnesium oxide 400 b.i.d. 14. Zofran p.r.n. 15. Tylenol p.r.n. 16. [place] p.r.n. 17. Colace p.r.n. 18. Milk of magnesia. 19. Antivert p.r.n. ASSESSMENT AND PLAN: 1. This is an 86-year-old Malawian-speaking female with history of hypertension, osteoarthritis, dy slipidemia, osteoporosis, status post left hip open reduction internal fixation. 2. Postop day #7, awaiting acute rehab. Continue physical therapy, occupational therapy and pain c ontrol. 3. Anemia, status post transfusion. H and H remain stable. 4. History of thoracic aortic aneurysm. We will discuss with family regarding CT scan of the chest when more stable and less anxious. 5. Hypothyroidism. Continue Synthroid. 6. Intermittent tachycardia secondary to anxiety and pain on low dose beta blockers. 7. Anxiolytics p.r.n. The patient with one-to-one sitter. 8. Case discussed with family, they are aware of plan of care. 9. Encourage her to eat. 10. The patient is on deep vein thrombosis prophylaxis and gastrointestinal prophylaxis. The patie nt remained stable to be transferred later today to acute rehabilitation. We will follow. Dictated By: ESTER CUBA/BETI Conf#: [id number] DID#: [id number]
[2016-07-26] MEDS: HYDROCODONE/APAP (5/325) TAB PO PRN (19:10)
[2016-07-26 19:46] VITALS: BP 124/70; RESP 20
[2016-07-26] MEDS: GABAPENTIN 300 MG CAP PO SCH (20:34)
== END 2016-07-26 21:30 | DRG 481 ==
LOC: E/R 09:08 → MS1 10:57
PROVIDERS: ADMIT Internal Medicine; ATTEND Internal Medicine
PROC: 30233N1 Transfusion of Nonautologous Red Blood Cells into Peripheral Vein, Percutaneous Approach (ICD-10-PCS; 2016-07-19)
PROC: 0QS704Z Reposition Left Upper Femur with Internal Fixation Device, Open Approach (ICD-10-PCS; principal; 2016-07-19 10:00)
PROC: 30233N1 Transfusion of Nonautologous Red Blood Cells into Peripheral Vein, Percutaneous Approach (ICD-10-PCS; 2016-07-22)
DX: S72.142A Displaced intertrochanteric fracture of left femur, initial encounter for closed fracture (principal); N39.0 Urinary tract infection, site not specified; F03.90 Unspecified dementia, unspecified severity, without behavioral disturbance, psychotic disturbance, mood disturbance, and anxiety; D62 Acute posthemorrhagic anemia; W01.0XXA Fall on same level from slipping, tripping and stumbling without subsequent striking against object, initial encounter; Y93.01 Activity, walking, marching and hiking; Y92.019 Unspecified place in single-family (private) house as the place of occurrence of the external cause; Y99.8 Other external cause status; M81.0 Age-related osteoporosis without current pathological fracture; I10 Essential (primary) hypertension; E03.9 Hypothyroidism, unspecified; E78.5 Hyperlipidemia, unspecified; Z79.82 Long term (current) use of aspirin; F29 Unspecified psychosis not due to a substance or known physiological condition
CPT/HCPCS: 36430; 71010; 72170; 73500; 73510; 73530; 80048; 80053; 81001; 81003; 82150; 83690; 83735; 84100; 84443; 84484; 85025; 85610; 85730; 86850; 86900; 86901; 86920; 87086; 93005; 93306; 96374; 96375; 96376; 97110; 97116; 97162; 97530; C1713; J0690; J0696; J1170; J1650; J2060; J2250; J2270; J2370; J2405; J3010; J7030; P9016

== ENCOUNTER 2016-07-26 16:59 | Inpatient (IN) | payer MEDICARE, BC ==
[~2016-07-26] VITALS: Ht 147.3 cm; Wt 58.9 kg
[~2016-07-26 16:59] MED LIST changes: -AMLO-20 PO; +AMLO1CAP15 PO; +ASPI1CPM8 PO; +BACL10TA PO; -CELEBREX; +CHOL100062 PO; -CLONIDINE; -EZET1TAB40 PO; +GABA300C16 PO; +IBAN150T7 PO; +LEVO50TA71 PO; -LOVAZA; +MAGN400T27 PO; +MECL-77 PO; +MEMA28CA PO; +OMEG1CAP2 PO; +ROSU20TA PO; -TYLENOL
[2016-07-26] MEDS: LORAZEPAM 2 MG INJ IM PRN (22:27)
[2016-07-26] MEDS ORDERED: HYDROmorphONE 1 MG/ML SYG IV PRN (22:30)
[2016-07-26] MEDS ORDERED: ONDANSETRON 4 MG INJ IV PRN (22:30)
[2016-07-26] MEDS ORDERED: NACL 0.9% 3 ML SYG IV SCH (22:30)
[2016-07-26] MEDS ORDERED: ZOLPIDEM 5 MG TAB PO PRN (22:30)
[2016-07-26] MEDS ORDERED: LORAZEPAM 0.5 MG TAB PO PRN (22:30)
[2016-07-26] MEDS ORDERED: MAGNESIUM HYDROXIDE 30ML CUP PO PRN (22:30)
[2016-07-26] MEDS ORDERED: DOCUSATE SODIUM 100 MG CAP PO PRN (22:30)
[2016-07-26] MEDS: GABAPENTIN 300 MG CAP PO SCH (23:23)
[2016-07-26] MEDS: MAGNESIUM OXIDE 400 MG TAB PO SCH (23:24)
[2016-07-26] MEDS: HYDROCODONE/APAP (5/325) TAB PO PRN (23:24)
[2016-07-26] MEDS: QUETIAPINE 25 MG TAB PO SCH (23:24)
[2016-07-26] MEDS: METOPROLOL 25 MG TAB PO SCH (23:25)
[2016-07-27] MEDS ORDERED: BISACODYL 10 MG SUPP PR PRN (03:15)
[2016-07-27] MEDS ORDERED: LACTULOSE 30ML CUP PO PRN (03:15)
[2016-07-27] MEDS: PANTOPRAZOLE (EC) 40 MG TAB PO SCH (06:31)
[2016-07-27] MEDS: LEVOTHYROXINE 50 MCG TAB PO SCH (06:36)
[2016-07-27 06:39] VITALS: BP 143/69; RESP 20
[2016-07-27 07:07] LABS: BASOPHILS % 0.5 % (0.0-2.0); EOSINOPHILS # 0.3 10^3/ul (0.0-0.5); EOSINOPHILS % 3.4 % (0.0-7.0); HEMATOCRIT 34.9 % (37.0-47.0); HEMOGLOBIN 11.6 g/dl (12.0-16.0); LYMPHOCYTES # 1.9 10^3/ul (0.8-2.9); LYMPHOCYTES % 25.7 % (15.0-51.0); MEAN CORPUSCULAR HEMOGLOBIN 30.5 pg (29.0-33.0); MEAN CORPUSCULAR HGB CONC 33.2 g/dl (32.0-37.0); MEAN CORPUSCULAR VOLUME 91.8 fl (82.0-101.0); MEAN PLATELET VOLUME 9.3 fl (7.4-10.4); MONOCYTE # 0.9 10^3/ul (0.3-0.9); MONOCYTES % 12.8 % (0.0-11.0); NEUTROPHIL # 4.3 10^3/ul (1.6-7.5); NEUTROPHILS % 57.6 % (39.0-77.0); PLATELET COUNT 296 10^3/UL (140-440); RED CELL DISTRIBUTION WIDTH 18.5 % (11.5-14.5); UNCORRECTED WBC 7.4 10^3/ul (4.8-10.8); WHITE BLOOD COUNT 7.4 10^3/ul (4.8-10.8)
[2016-07-27 07:21] LABS: CONDITION 1; LH ANALYZER COMMENTS 1
[2016-07-27 07:40] LABS: ALBUMIN 2.9 g/dl (3.3-4.9)
[2016-07-27 07:41] LABS: POTASSIUM 4.4 mmol/L (3.5-5.1)
[2016-07-27 07:43] LABS: BILIRUBIN,INDIRECT 1.4 mg/dl (0-1.1); BILIRUBIN,TOTAL 1.4 mg/dl (0.2-1.3); CREATININE 0.52 mg/dl (0.44-1.00)
[2016-07-27 07:44] LABS: ALBUMIN/GLOBULIN RATIO 1.2; CALCIUM 8.4 mg/dl (8.4-10.2); TOTAL PROTEIN 5.3 g/dl (6.1-8.1)
[2016-07-27] MEDS ORDERED: HYDROmorphONE 1 MG/ML SYG IM PRN (09:00)
[2016-07-27] MEDS: FERROUS SULFATE (EC) 325 MG TAB PO SCH (10:39)
[2016-07-27] MEDS: MAGNESIUM OXIDE 400 MG TAB PO SCH ×2 (10:39→20:29)
[2016-07-27] MEDS: CHOLECALCIFEROL 1,000 UNIT TAB PO SCH (10:39)
[2016-07-27] MEDS: DOCUSATE SODIUM 100 MG CAP PO SCH ×2 (10:39→20:30)
[2016-07-27] MEDS: MECLIZINE 25 MG TAB PO PRN ×2 (10:39→20:30)
[2016-07-27] MEDS: BACLOFEN 10 MG TAB PO SCH (10:40)
[2016-07-27] MEDS: QUETIAPINE 25 MG TAB PO SCH ×2 (10:40→20:30)
[2016-07-27] MEDS: ENOXAPARIN 40 MG/0.4 ML SYG SC SCH (10:50)
[2016-07-27] MEDS: METOPROLOL 25 MG TAB PO SCH ×2 (11:25→20:34)
--- NOTE | 2016-07-27 11:30 | PN ---
DATE: 07/27/2016 CARDIOLOGY FOLLOWUP SUBJECTIVE: Cardiology was discussed with the staff. The patient has been anxious overnight, curre ntly better. No chest pain or pressure. The patient currently in rehab. MEDICATIONS: Reviewed. PHYSICAL EXAMINATION: VITAL SIGNS: Temperature 98.3, heart rate 100, blood pressure 140/69, respiratory rate of 20, satur ating 96%. HEENT: Normocephalic, atraumatic. No acute distress. Pupils are equal. CARDIOVASCULAR: Regular rate and rhythm. PULMONARY: No wheezes. GASTROINTESTINAL: Soft, nontender. NEUROLOGIC: Awake, alert. PSYCHIATRIC: Agitated. LABORATORY DATA: Shows WBC of 7.4, hemoglobin 11.6, platelets 296. Sodium 140, potassium 4.4, BUN of 14, creatinine 0.52 ASSESSMENT: 1. Hip fracture status post surgery. 2. Hypertension, in good control. 3. Encephalopathy. RECOMMENDATIONS: We will continue with the current cardiac care. Continue with physical therapy an d rehab. Dictated By: ABELARDO MENDEZ MD AV/BETI Conf#: [id number] DID#: [id number] CC: ESTER KINNEY MD;*EndCC*
[2016-07-27] MEDS: HYDROmorphONE 1 MG/ML SYG IM PRN ×3 (12:42→18:51)
--- NOTE | 2016-07-27 13:34 | HP ---
DATE OF ADMISSION: 07/26/2016 REASON FOR ADMISSION: Status post left hip ORIF secondary to a fracture after a fall, presents for rehabilitation. HISTORY OF PRESENT ILLNESS: The patient is an 86-year-old Liberian-speaking female with history of hypertension, osteoarthritis, dyslipidemia, osteoporosis who is very well known to me. Previously a dmitted to [facility] in 2012 secondary to right hip fracture where she underwent ORIF. The patient overall has good functional capacity. Unfortunately, she presented to the hospit al on 07/17/2016, after she sustained a fall. She was found to have a left hip fracture. During her stay at [facility], the patient underwent ORIF of the intertrochanteric fracture of the left hip. The patient tolerated the procedure well. Postop she received blood pro ducts. Unfortunately, she was very anxious, initially not eating much, and slowly she improved as day progressed. She required a sitter as patient is at risk for fall as the patient is anxious a t times. She also has been pulling IVs out and her Carter out. We decided to transfer her to the [facility] rehab unit for rehabilitation with th e goal for her to go back home with family. The patient started to participate with physical therap y at [facility] with overall good results. Upon evaluation, the patient is Liberian speaki ng overall in no distress. No overall acute events. We discontinued the IV line as patient has bee n pulling the lines out. PAST MEDICAL HISTORY: Includes hypertension, osteoarthritis, osteoporosis, hypothyroidism, history of thoracic aortic aneurysm measuring 4.5 cm, history of dementia, recent UTI, psychosis, anemia. ALLERGIES: NO KNOWN DRUG ALLERGIES. SURGICAL HISTORY: Appendectomy, right hip ORIF, now left hip ORIF. SOCIAL HISTORY: No history of tobacco, alcohol or IV drug use. The patient is a . She has 4 kids. FAMILY HISTORY: Noncontributory. CURRENT MEDICATIONS: Upon transfer from [facility] includes: 1. Tylenol 650 q.6h. p.r.n. 2. Baclofen 10 mg daily. 3. Vitamin D 1000 mg daily. 4. Colace 100 q.12h. 5. Lovenox 40 mg subq daily. 6. Ferrous sulfate 325 daily. 7. Neurontin 300 mg at night. 8. [place] 5/325 q.6h. p.r.n. 9. Dilaudid 0.5 IV q.4h. p.r.n. 10. Synthroid 50 mcg daily. 11. Ativan 0.5 q.6h. p.r.n. 12, Milk of magnesia 30 mL daily. 13. Magnesium oxide b.i.d. 14. Antivert 25 t.i.d. p.r.n. 15. Lopressor 25 b.i.d. 16. Zofran 4 mg IV q.6h. p.r.n. 17. Protonix 40 mg daily. 18. Seroquel 25 b.i.d. 19. Ambien 5 mg at bedtime. 20. Previously she was on Aggrenox 25/200 b.i.d. 21. Namenda 28 XR mg daily. 22. Crestor 20 mg at bedtime. REVIEW OF SYSTEMS: Per HPI. PHYSICAL EXAMINATION: VITAL SIGNS: Temperature 98.3, pulse 101, respirations 20, blood pressure 143/69, saturation 96%. GENERAL: The patient is in no acute distress. The patient is pale. Speech is intact. CARDIOVASCULAR: S1 and S2. LUNGS: Clear. ABDOMEN: Soft, nontender. EXTREMITIES: Slight pain upon movement of the lower extremity, left hip. Scar is banded and patien t overall spontaneously moving all extremities. LABORATORIES: Sodium is 140, potassium 4.4, chloride 102, bicarbonate 28, BUN is 14, creatinine 0.5 2, glucose of 105. AST 26, ALT 21, alkaline phosphatase 73, albumin is low at 2.9. White count is 7.4, hemoglobin 11.6, hematocrit 35, platelet count is 296, neutrophils 58, lymphocytes 26%. ASSESSMENT AND PLAN: This is an 86-year-old Liberian-speaking female with history of hypertension, osteoarthritis, dyslipidemia, osteoporosis, status post left hip ORIF secondary to fall and hip frac ture. 1. The patient is post left hip open reduction internal fixation. Continue physical therapy, occup ational therapy, pain control, help with activities of daily living, speech therapy to assist with f eeding and monitor the patient's p.o. intake. Goal is for her to go back home with family members. 2. Anemia, status post transfusion. H and H is stable. 3. History of thoracic aortic aneurysm and pulmonary nodule. Will discuss with family. We would l varun to proceed with a CT scan of the chest when more stable and less anxious. 4. Hypothyroidism. Continue Synthroid. 5. Tendency for tachycardia. Dr. Nelson has been seeing her. Continue beta blockers. Continue as pirin or Aggrenox for cardiovascular protection. 6. Continue deep vein thrombosis prophylaxis and gastrointestinal prophylaxis. 7. Psychosis, partly postop and hospital related. Continue Seroquel and p.r.n. Ativan and close m onitoring as patient has a sitter as needed. 8. The patient will be placed on stool softeners. Again, will monitor the patient's p.o. intake an d encourage her to eat. We will follow the patient closely. Dictated By: ESTER CUBA/BETI Conf#: [id number] DID#: [id number]
--- NOTE | 2016-07-27 13:45 | CONS ---
DATE OF ADMISSION: 07/26/2016 DATE OF CONSULTATION: 07/27/2016 REHABILITATION POST ADMISSION PHYSICIAN EVALUATION REHABILITATION IMPAIRMENT CATEGORY: Left intertrochanteric comminuted hip fracture status post intramedullary rosa. ACTIVE COMORBIDITIES: 1. Mild encephalopathy with confusion. 2. Anemia. 3. Hypothyroidism. 4. Urinary tract infection. 5. Dyslipidemia. 6. Impairments in self-care, mobility and cognition. HISTORY OF PRESENT ILLNESS: The patient is a pleasant 86-year-old female with a history of multiple medical comorbidities who is status post a mechanical fall with a resultant left intertrochanteric hip fracture. The patient underwent intramedullary rosa placement on 07/19/2016. Her postoperative course has been notable for confusion and agitation, requiring a sitter, presumed secondary to encephalopathy. The patient is also noted to have significant impairments in self-care and mobility as compared to baseline. The patient has been cleared to transfer to the rehabilitation unit for comprehensive interdisciplinary rehab care. FUNCTIONAL HISTORY: Prior to recent events she was independent in self-care tasks and mobility. Currently the patient requires maximal assist for self-care and maximal assist for mobility tasks. I have reviewed the preadmission screen and the patient's current functional status is consistent with the preadmission screen. SOCIAL HISTORY: The patient lives at home with family and hopes to return there upon discharge. PAST MEDICAL HISTORY: 1. Hypertension. 2. Dyslipidemia. 3. Osteoarthritis. 4. Osteoporosis. 5. History of appendectomy. CURRENT MEDICATIONS: 1. Lopressor. 2. Ativan. 3. Ferrous sulfate. 4. Seroquel. 5. Dilaudid. 6. Lovenox. 7. [place]. 8. Ambien. 9. Baclofen. 10. Vitamin D. 11 Synthroid. 12. Protonix. 13. Neurontin. 14. Magnesium oxide. ALLERGIES: PATIENT WITH NO KNOWN DRUG ALLERGIES. PHYSICAL EXAMINATION: VITAL SIGNS: The patient is currently afebrile, with stable vital signs. HEENT: Extraocular motions are intact. Oropharynx is clear. NECK: Supple. LUNGS: Clear anteriorly. CARDIAC: S1, S2. ABDOMEN: Soft, nontender. Positive bowel sounds. NEUROLOGIC: The patient is awake and alert. She will follow simple 1-step commands. She demonstrates antigravity strength in the bilateral upper extremities and the right lower extremity. Dorsiflexion and plantar flexion are intact on the left. PLAN: The patient has been admitted for comprehensive interdisciplinary acute rehab and is anticipated to tolerate 3 hours of daily therapy in divided doses for at least 5/7 days a week. Treatment plan will include: 1. Physical therapy to focus on bed mobility, transfers, and household ambulation, with the goal of having the patient reach a standby assist level. 2. Occupational therapy to focus on hygiene, grooming, dressing, bathing, and toileting activities, with the goal of having the patient reach a standby assist level. 3. Speech therapy for full cognitive assessment and retraining, in addition to dysphagia evaluation, with the goal of having the patient return to baseline cognition. 4. Rehabilitation nursing for carryover of therapeutic interventions, with the goal of continent of bowel and bladder, and the goal of pain adequately managed on oral medications. ESTIMATED LENGTH OF STAY: 14 days. DISPOSITION GOAL: Home. Rehabilitation Barrier: Pain Intervention to barrier: Interdisciplinary approach I acknowledge that I performed a full physical examination on this patient within 24 hours of admission to the rehabilitation unit and believe the patient is a good candidate for comprehensive interdisciplinary rehab care and is anticipated to tolerate 3 hours of daily therapy in divided doses for at least 5 /7 days a week. Dictated By: KANA MONTERO/BETI Conf#: [id number] DID#: [id number] MTDD
[2016-07-27] MEDS: DIPYRIDAMOLE/ASPIRIN (SR) CAP PO SCH (20:30)
[2016-07-27] MEDS: GABAPENTIN 300 MG CAP PO SCH (20:30)
[2016-07-27] MEDS: SENNA TAB PO SCH (20:30)
[2016-07-27] MEDS: ATORVASTATIN 20 MG TAB PO SCH (20:30)
[2016-07-27] MEDS: LORAZEPAM 2 MG INJ IM PRN (20:37)
[2016-07-27] MEDS: MEMANTINE 10 MG TAB PO SCH (20:37)
[2016-07-27] MEDS ORDERED: ATORVASTATIN 40 MG TAB PO SCH (21:00)
[2016-07-28 04:49] VITALS: BP 132/83; RESP 20
[2016-07-28] MEDS: PANTOPRAZOLE (EC) 40 MG TAB PO SCH (06:00)
[2016-07-28] MEDS: LEVOTHYROXINE 50 MCG TAB PO SCH (06:14)
[2016-07-28 08:00] VITALS: BP 145/88; PULSE 95; RESP 18
[2016-07-28] MEDS: HYDROmorphONE 1 MG/ML SYG IM PRN (08:04)
[2016-07-28] MEDS ORDERED: ASPIRIN 81 MG TAB PO SCH (09:00)
[2016-07-28] MEDS: FERROUS SULFATE (EC) 325 MG TAB PO SCH (09:31)
[2016-07-28] MEDS: BACLOFEN 10 MG TAB PO SCH (09:31)
[2016-07-28] MEDS: DOCUSATE SODIUM 100 MG CAP PO SCH ×2 (09:31→21:00)
[2016-07-28] MEDS: QUETIAPINE 25 MG TAB PO SCH ×2 (09:31→21:00)
[2016-07-28] MEDS: MAGNESIUM OXIDE 400 MG TAB PO SCH ×2 (09:32→21:00)
[2016-07-28] MEDS: MEMANTINE 10 MG TAB PO SCH ×2 (09:32→21:00)
[2016-07-28] MEDS: DIPYRIDAMOLE/ASPIRIN (SR) CAP PO SCH ×2 (09:32→21:00)
[2016-07-28] MEDS: CHOLECALCIFEROL 1,000 UNIT TAB PO SCH (09:32)
[2016-07-28] MEDS: METOPROLOL 25 MG TAB PO SCH ×2 (09:32→21:00)
[2016-07-28] MEDS: ENOXAPARIN 40 MG/0.4 ML SYG SC SCH (09:38)
--- NOTE | 2016-07-28 12:20 | CONS ---
Date/Time of Note Date/Time of Note DATE: 07/28/16 TIME: 12:19 Consult Date/Type/Reason Admit Date/Time Jul 26, 2016 at 21:35 Initial Consult Date Subjective Patient comfortable Objective pulm- cta max assist Vital Signs Date Time Temp Pulse Resp B/P Pulse Ox O2 Delivery O2 Flow Rate FiO2 07/28/16 08:00 98.4 95 18 145/88 95 Intake and Output 07/27/16 07/27/16 07/28/16 15:00 23:00 07:00 Intake Total 600 ml 100 ml Balance 600 ml 100 ml Results/Medications Result Diagram: 07/27/1662407/27/16624 Medications Current Medications Lorazepam (Ativan) 0.5 mg Q4H PRN IM AGITATION Last administered on 07/27/16 20 :37; Admin Dose 0.5 MG; Start 07/26/16 at 22:00 Acetaminophen (Tylenol Tab) 650 mg Q6H PRN PO PAIN AND OR ELEVATED TEMP; Start 07/26/16 at 22:30 Baclofen (Lioresal) 10 mg DAILY PO Last administered on 07/28/16 09:31; Admin Dose 10 MG; Start 07/27/16 at 09:00 Cholecalciferol (Vitamin D) 1,000 unit DAILY PO Last administered on 07/28/16 09:32; Admin Dose 1,000 UNIT; Start 07/27/16 at 09:00 Docusate Sodium (Colace) 100 mg Q12H PRN PO CONSTIPATION; Start 07/26/16 at 22: 30 Enoxaparin Sodium (Lovenox) 40 mg DAILY SC Last administered on 07/28/16 09:38 ; Admin Dose 40 MG; Start 07/27/16 at 09:00 Ferrous Sulfate (Ferrous Sulfate (Ec)) 325 mg DAILY PO Last administered on 09:31; Admin Dose 325 MG; Start 07/27/16 at 09:00 Gabapentin (Neurontin) 300 mg HS PO Last administered on 07/27/16 20:30; Admin Dose 300 MG; Start 07/26/16 at 22:30 Acetaminophen/ Hydrocodone Bitart ([place] (5/325)) 1 tab Q6H PRN PO PAIN Last administered on 07/26/16 23:24; Admin Dose 1 TAB; Start 07/26/16 at 22:30 Lorazepam (Ativan) 0.5 mg Q6H PRN PO ANXIETY; Start 07/26/16 at 22:30 Magnesium Hydroxide (Milk Of Mag) 30 ml DAILY PRN PO CONSTIPATION; Start at 22:30 Magnesium Oxide (Mag-Ox 400) 400 mg BID PO Last administered on 07/28/16 09:32 ; Admin Dose 400 MG; Start 07/26/16 at 22:30 Meclizine HCl (Antivert) 25 mg BID PRN PO DIZZINESS Last administered on 20:30; Admin Dose 25 MG; Start 07/26/16 at 22:30 Metoprolol Tartrate (Lopressor) 25 mg BID PO Last administered on 07/28/16 09: 32; Admin Dose 25 MG; Start 07/26/16 at 22:30 Ondansetron HCl (Zofran Inj) 4 mg Q6H PRN IV NAUSEA AND/OR VOMITING; Start 07/26 at 22:30 Pantoprazole (Protonix Tab) 40 mg DAILY@06 PO Last administered on 07/27/16 06: 31; Admin Dose 40 MG; Start 07/27/16 at 06:00 Quetiapine Fumarate (Seroquel) 25 mg BID PO Last administered on 07/28/16 09: 31; Admin Dose 25 MG; Start 07/26/16 at 22:30 Zolpidem Tartrate (Ambien) 5 mg HS PRN PO INSOMNIA; Start 07/26/16 at 22:30 Docusate Sodium (Colace) 100 mg BID PO Last administered on 07/28/16 09:31; Admin Dose 100 MG; Start 07/27/16 at 09:00 Senna (Senokot) 1 tab HS PO Last administered on 07/27/16 20:30; Admin Dose 1 TAB; Start 07/27/16 at 21:00 Bisacodyl (Dulcolax Supp) 10 mg DAILY PRN [place] CONSTIPATION; Start 07/27/16 at 03: 15 Lactulose (Enulose) 20 gm DAILY PRN PO CONSTIPATION; Start 07/27/16 at 03:15 Atorvastatin Calcium (Lipitor) 20 mg DAILY@21 PO Last administered on 07/27/16 20:30; Admin Dose 20 MG; Start 07/27/16 at 21:00 Hydromorphone HCl (Dilaudid) 0.5 mg Q3H PRN IM PAIN Last administered on 08:04; Admin Dose 0.5 MG; Start 07/27/16 at 15:00 Memantine (Namenda) 10 mg BID PO Last administered on 07/28/16 09:32; Admin Dose 10 MG; Start 07/27/16 at 21:00 Dipyridamole/ Aspirin (Aggrenox) 1 cap BID PO Last administered on 07/28/16 09 :32; Admin Dose 1 CAP; Start 07/27/16 at 21:00 Assessment/Plan Additional Assessment/Plan Rehab- Left intertrochanteric comminuted hip fracture status post intramedullary rosa. Continue rehab program Mild encephalopathy with confusion- improving Anemia. Hypothyroidism. Urinary tract infection. Dyslipidemia. KANA GRACE MD Jul 28, 2016 12:20
--- NOTE | 2016-07-28 14:50 | PN ---
DATE: 07/28/2016 SUBJECTIVE: The patient is seen, appears to be more calm. Eating more and participating with physi sana therapy. Definitely much improvement. There is a sitter at bedside. Case discussed. PHYSICAL EXAMINATION: VITAL SIGNS: Temperature 98.4, pulse 95, respirations 18, blood pressure 145/88, saturation 95% on room air. GENERAL: No acute distress. The patient is pale. HEENT: Normocephalic, atraumatic. CARDIOVASCULAR: S1 and S2, regular rate. LUNGS: Clear. ABDOMEN: Soft, nontender. EXTREMITIES: No clubbing, cyanosis, or edema. There is a bandage on the left knee surgical area. LABORATORY DATA: No labs today. Labs on admission yesterday on 07/27/2016 show a white count of 7. 4, hemoglobin 11.6. Albumin is slightly low at 2.9, otherwise normal CMP. MEDICATIONS: Include: 1. Senna 1 tab at bedtime. 2. Lipitor 20 mg daily. 3. Namenda 10 mg b.i.d. 4. Aggrenox 1 tab b.i.d. 5. Dilaudid 0.5 IM q.3h. p.r.n. 6. Baclofen 10 mg daily. 7. Vitamin D 1000 daily. 8. Lovenox 40 mg subcutaneous daily. 9. Ferrous sulfate 325 daily. 10. Colace 100 b.i.d. 11. Synthroid 50 mcg daily. 12. Protonix 40 mg daily. 13. Dulcolax p.r.n. 14. Lactulose p.r.n. 15. Tylenol p.r.n. 16. Neurontin 300 at bedtime. 17. [place] p.r.n. 18. Ativan p.r.n. 19. Milk of magnesia p.r.n. 20. Magnesium oxide 400 b.i.d. 21. Antivert p.r.n. 22. Metoprolol 25 b.i.d. 23. Zofran p.r.n. 24. Seroquel 25 b.i.d. 25. Ambien p.r.n. ASSESSMENT AND PLAN: This is an 86-year-old Romansh-speaking female with history of hypertension, osteoarthritis, dyslipidemia, osteoporosis, status post left hip ORIF secondary to fall and hip frac ture. 1. Post left hip open reduction internal fixation. Continue physical therapy, occupational therapy to help with activities of daily living with anticipation to discharge hopefully once done with hola atment to go home with family support. Continue speech therapy. Monitor the patient's p.o. intake. 2. Anemia. Hemoglobin and hematocrit are stable status post recent surgery. She did receive 2 uni ts of PRBC. 3. History of thoracic aneurysm and pulmonary nodule. We will order possibly a CT scan of the ches t prior to discharge. 4. Hypothyroidism, on Synthroid. 5. Tendency for tachycardia, remains on beta blockers. The patient is also on Aggrenox for cardiov ascular protection. 6. Continue deep venous thrombosis prophylaxis with Lovenox. 7. Continue gastrointestinal prophylaxis. 8. Psychiatric. The patient is on p.r.n. Ativan and Seroquel twice a day, appears to be working. 9. Pain control as needed. 10. Stool softeners as needed. We will follow. Dictated By: ESTER CUBA/BETI Conf#: [id number] DID#: [id number]
--- NOTE | 2016-07-28 16:36 | PN ---
DATE: 07/28/2016 CARDIOLOGY FOLLOWUP SUBJECTIVE: No new cardiac event. No reported chest pain or pressure. MEDICATIONS: Reviewed. PHYSICAL EXAMINATION: VITAL SIGNS: Temperature 98.4, heart rate of 95, blood pressure of 145/88, respiratory rate of 18. HEENT: Normocephalic, atraumatic. Pupils are equal. CARDIOVASCULAR: Regular rhythm. PULMONARY: No wheezes. GASTROINTESTINAL: Soft. NEUROLOGIC: Awake, alert. ASSESSMENT AND PLAN: 1. Hip fracture status post surgery. 2. Hypertension. 3. Encephalopathy. 4. Debility. 5. Anemia. RECOMMENDATIONS: We will continue with the current cardiac care. Continue with physical therapy. Dictated By: ABELARDO CABRAL/BETI Conf#: [id number] DID#: [id number]
[2016-07-28] MEDS: LORAZEPAM 2 MG INJ IM PRN (20:02)
[2016-07-28 20:45] VITALS: BP 118/82; RESP 20
[2016-07-28] MEDS: ATORVASTATIN 20 MG TAB PO SCH (21:00)
[2016-07-28] MEDS: GABAPENTIN 300 MG CAP PO SCH (21:00)
[2016-07-28] MEDS: SENNA TAB PO SCH (21:00)
[2016-07-29] MEDS: PANTOPRAZOLE (EC) 40 MG TAB PO SCH (06:00)
[2016-07-29] MEDS: LEVOTHYROXINE 50 MCG TAB PO SCH (06:32)
[2016-07-29 07:25] VITALS: BP 135/90; RESP 18
[2016-07-29] MEDS: HYDROmorphONE 1 MG/ML SYG IM PRN ×6 (07:44→19:29)
[2016-07-29 07:49] VITALS: BP 135/90; PULSE 20; RESP 20
[2016-07-29] MEDS: CHOLECALCIFEROL 1,000 UNIT TAB PO SCH (08:41)
[2016-07-29] MEDS: MAGNESIUM OXIDE 400 MG TAB PO SCH ×2 (08:41→20:42)
[2016-07-29] MEDS: FERROUS SULFATE (EC) 325 MG TAB PO SCH (08:41)
[2016-07-29] MEDS: BACLOFEN 10 MG TAB PO SCH (08:41)
[2016-07-29] MEDS: DOCUSATE SODIUM 100 MG CAP PO SCH ×2 (08:41→20:41)
[2016-07-29] MEDS: DIPYRIDAMOLE/ASPIRIN (SR) CAP PO SCH ×2 (08:41→20:42)
[2016-07-29] MEDS: ENOXAPARIN 40 MG/0.4 ML SYG SC SCH (09:05)
[2016-07-29] MEDS: QUETIAPINE 25 MG TAB PO SCH ×2 (09:10→20:42)
[2016-07-29] MEDS: MEMANTINE 10 MG TAB PO SCH ×2 (09:10→20:42)
[2016-07-29] MEDS: METOPROLOL 25 MG TAB PO SCH ×2 (09:11→20:44)
--- NOTE | 2016-07-29 12:10 | PN ---
DATE: 07/29/2016 SUBJECTIVE: The patient was seen. Overall complaining of pain in the left hip. She continues to pa rticipate with physical therapy. There is definite swelling of the left lower extremity compared to the right and some hematoma noted. PHYSICAL EXAMINATION: VITAL SIGNS: Temperature 98.8, pulse 91 to 109, respirations 20, blood pressure 135/90, saturation 93% on room air. GENERAL: The patient is in no acute distress, less anxious, the patient is pale. CARDIOVASCULAR: S1 and S2, regular rate. LUNGS: Clear. ABDOMEN: Soft, nontender. EXTREMITIES: Left hip area hematoma which overall is acceptable, status post surgery. LABORATORY DATA: No new labs today. Labs on 07/27/2016 were reviewed. Hemoglobin at that time was 11.6. BUN and creatinine were 14/0.52. MEDICATIONS: Include: 1. Senna 1 tab at bedtime. 2. Lipitor 20 mg daily. 3. Namenda 10 mg b.i.d. 4. Aggrenox 1 tab b.i.d. 5. Dilaudid p.r.n. 6. Baclofen 10 mg daily. 7. Vitamin D 1000 daily. 8. Lovenox 40 mg subcutaneous daily. 9. Ferrous sulfate 325 daily. 10. Colace 100 b.i.d. 11. Synthroid 50 mcg daily. 12. Protonix 40 mg daily. 13. Dulcolax as directed. 14. Lactulose p.r.n. 15. Tylenol p.r.n. 16. Colace p.r.n. 17. Neurontin 300 at bedtime. 18. [place] p.r.n. 19. Ativan p.r.n. 20. Milk of magnesia p.r.n. 21. Magnesium oxide 400 b.i.d. 22. Antivert p.r.n. 23. Lopressor 25 b.i.d. 24. Zofran p.r.n. 25. Seroquel 25 b.i.d. 26. Ambien p.r.n. ASSESSMENT AND PLAN: This is an 86-year-old Qatari-speaking female with history of hypertension, o steoarthritis, dyslipidemia, osteoporosis, status post left hip open reduction and internal fixation secondary to a fall and hip fracture. 1. Status post left hip open reduction and internal fixation. Continue physical therapy and occup ational therapy. Continue DVT prophylaxis. 3. History of questionable cerebrovascular accident. The patient is on Aggrenox. 4. Hypothyroidism on Synthroid. 5. History of thoracic aneurysm and pulmonary nodule. Consider CT scan of the chest prior to discha rge. Will discuss with family. 6. Tendency for tachycardia, remains on beta blockers. 7. Continue gastrointestinal prophylaxis. 8. Check a.m. labs. Monitor hemoglobin and hematocrit. 9. Psychiatric. Continue all psych medications. The patient appears to be calmer. 10. Continue stool softeners. 11. Monitor the patient's p.o. intake and encourage her to eat. 12. Pain control as needed. We will follow. Dictated By: ESTER CUBA/BETI Conf#: [id number] DID#: [id number]
[2016-07-29 14:00] VITALS: BP 120/77
[2016-07-29 14:04] VITALS: BP 138/87
[2016-07-29 14:07] VITALS: BP 141/80
--- NOTE | 2016-07-29 14:19 | PN ---
Date/Time of Note Date/Time of Note DATE: 07/29/16 TIME: 14:14 Assessment/Plan VTE Prophylaxis VTE Prophylaxis Intervention: LMWH Lines/Catheters Urinary Cath still in place: No Assessment/Plan Assessment/Plan 1. Left comminuted intertrochanteric hip fracture status post intramedullary rosa with impaired mobility/gait/ADLs. Continue PT/OT. Max assist for bed mobility, mod assist for wheelchair mobility 50ft. Continue surgical site care. 2. Post operative encephalopathy. Continue supportive treatment. 3. Anemia. Monitor hemoglobin/hematocrit. 4. Hypothyroidism. Continue levothyroxine. 5. Dyslipidemia. Continue statin. 6. HTN. BP controlled, continue current treatment. Subjective 24 Hr Interval Summary Free Text/Dictation Rehab progress note Subjective: No acute overnight events per nursing staff. Staff encouraging PO intake. Mild pain currently in left hip. ROS: Denies headache, no shortness of breath, no chills, no abdominal pain, no nausea or vomiting. Exam/Review of Systems Vital Signs Vitals Vital Signs Date Time Temp Pulse Resp B/P Pulse Ox O2 Delivery O2 Flow Rate FiO2 07/29/16 14:07 141/80 07/29/16 07:49 98.8 20 20 93 Room Air Intake and Output 07/28/16 07/28/16 07/29/16 15:00 23:00 07:00 Intake Total 720 ml 400 ml Balance 720 ml 400 ml Exam General: Awake, alert, no acute distress CV: Regular rate, s1s2 Lungs: Symmetrical air entry, no wheezing Abdomen soft, nontender Extremities without cyanosis, left hip surgical dressing clean and dry. Neuro: No sensory changes. Wiggles toes on the left. Follows simple commands. Results Result Diagram: 07/27/1662407/27/16624 Medications Medications Current Medications Lorazepam (Ativan) 0.5 mg Q4H PRN IM AGITATION Last administered on 07/28/16 20:02; Admin Dose 0.5 MG; Start 07/26/16 at 22:00 Acetaminophen (Tylenol Tab) 650 mg Q6H PRN PO PAIN AND OR ELEVATED TEMP; Start 07/26/16 at 22:30 Baclofen (Lioresal) 10 mg DAILY PO Last administered on 07/29/16 08:41; Admin Dose 10 MG; Start 07/27/16 at 09:00 Cholecalciferol (Vitamin D) 1,000 unit DAILY PO Last administered on 07/29/16 08:41; Admin Dose 1,000 UNIT; Start 07/27/16 at 09:00 Docusate Sodium (Colace) 100 mg Q12H PRN PO CONSTIPATION; Start 07/26/16 at 22: 30 Enoxaparin Sodium (Lovenox) 40 mg DAILY SC Last administered on 07/29/16 09:05 ; Admin Dose 40 MG; Start 07/27/16 at 09:00 Ferrous Sulfate (Ferrous Sulfate (Ec)) 325 mg DAILY PO Last administered on 08:41; Admin Dose 325 MG; Start 07/27/16 at 09:00 Gabapentin (Neurontin) 300 mg HS PO Last administered on 07/27/16 20:30; Admin Dose 300 MG; Start 07/26/16 at 22:30 Acetaminophen/ Hydrocodone Bitart ([place] (5/325)) 1 tab Q6H PRN PO PAIN Last administered on 07/26/16 23:24; Admin Dose 1 TAB; Start 07/26/16 at 22:30 Lorazepam (Ativan) 0.5 mg Q6H PRN PO ANXIETY; Start 07/26/16 at 22:30 Magnesium Hydroxide (Milk Of Mag) 30 ml DAILY PRN PO CONSTIPATION; Start at 22:30 Magnesium Oxide (Mag-Ox 400) 400 mg BID PO Last administered on 07/29/16 08:41 ; Admin Dose 400 MG; Start 07/26/16 at 22:30 Meclizine HCl (Antivert) 25 mg BID PRN PO DIZZINESS Last administered on 20:30; Admin Dose 25 MG; Start 07/26/16 at 22:30 Metoprolol Tartrate (Lopressor) 25 mg BID PO Last administered on 07/29/16 09: 11; Admin Dose 25 MG; Start 07/26/16 at 22:30 Ondansetron HCl (Zofran Inj) 4 mg Q6H PRN IV NAUSEA AND/OR VOMITING; Start 07/26 at 22:30 Pantoprazole (Protonix Tab) 40 mg DAILY@06 PO Last administered on 07/27/16 06: 31; Admin Dose 40 MG; Start 07/27/16 at 06:00 Quetiapine Fumarate (Seroquel) 25 mg BID PO Last administered on 07/29/16 09: 10; Admin Dose 25 MG; Start 07/26/16 at 22:30 Zolpidem Tartrate (Ambien) 5 mg HS PRN PO INSOMNIA; Start 07/26/16 at 22:30 Docusate Sodium (Colace) 100 mg BID PO Last administered on 07/29/16 08:41; Admin Dose 100 MG; Start 07/27/16 at 09:00 Senna (Senokot) 1 tab HS PO Last administered on 07/27/16 20:30; Admin Dose 1 TAB; Start 07/27/16 at 21:00 Bisacodyl (Dulcolax Supp) 10 mg DAILY PRN [place] CONSTIPATION; Start 07/27/16 at 03: 15 Lactulose (Enulose) 20 gm DAILY PRN PO CONSTIPATION; Start 07/27/16 at 03:15 Atorvastatin Calcium (Lipitor) 20 mg DAILY@21 PO Last administered on 07/27/16 20:30; Admin Dose 20 MG; Start 07/27/16 at 21:00 Hydromorphone HCl (Dilaudid) 0.5 mg Q3H PRN IM PAIN Last administered on 11:16; Admin Dose 0.5 MG; Start 07/27/16 at 15:00 Memantine (Namenda) 10 mg BID PO Last administered on 07/29/16 09:10; Admin Dose 10 MG; Start 07/27/16 at 21:00 Dipyridamole/ Aspirin (Aggrenox) 1 cap BID PO Last administered on 07/29/16 08 :41; Admin Dose 1 CAP; Start 07/27/16 at 21:00 JJ ZURITA Jul 29, 2016 14:19
[2016-07-29] MEDS: HYDROCODONE/APAP (5/325) TAB PO PRN ×2 (15:11→20:47)
[2016-07-29 20:09] VITALS: BP 141/85; RESP 19
[2016-07-29] MEDS: ATORVASTATIN 20 MG TAB PO SCH (20:41)
[2016-07-29] MEDS: SENNA TAB PO SCH (20:41)
[2016-07-29] MEDS: GABAPENTIN 300 MG CAP PO SCH (20:42)
[2016-07-29] MEDS: LORAZEPAM 2 MG INJ IM PRN (20:53)
[2016-07-30] MEDS: PANTOPRAZOLE (EC) 40 MG TAB PO SCH (06:14)
[2016-07-30] MEDS: LEVOTHYROXINE 50 MCG TAB PO SCH (06:15)
[2016-07-30 07:10] VITALS: BP 132/75; RESP 18
[2016-07-30] MEDS: ENOXAPARIN 40 MG/0.4 ML SYG SC SCH (09:20)
[2016-07-30] MEDS: DOCUSATE SODIUM 100 MG CAP PO SCH ×2 (09:21→20:53)
[2016-07-30] MEDS: MAGNESIUM OXIDE 400 MG TAB PO SCH ×2 (09:21→20:50)
[2016-07-30] MEDS: DIPYRIDAMOLE/ASPIRIN (SR) CAP PO SCH ×2 (09:21→20:52)
[2016-07-30] MEDS: FERROUS SULFATE (EC) 325 MG TAB PO SCH (09:21)
[2016-07-30] MEDS: CHOLECALCIFEROL 1,000 UNIT TAB PO SCH (09:21)
[2016-07-30] MEDS: MEMANTINE 10 MG TAB PO SCH ×2 (09:21→20:48)
[2016-07-30] MEDS: QUETIAPINE 25 MG TAB PO SCH ×2 (09:22→20:49)
[2016-07-30] MEDS: BACLOFEN 10 MG TAB PO SCH (09:22)
[2016-07-30] MEDS: METOPROLOL 25 MG TAB PO SCH ×2 (09:22→20:49)
--- NOTE | 2016-07-30 10:30 | PN ---
Date/Time of Note Date/Time of Note DATE: 07/30/16 TIME: 10:16 Assessment/Plan VTE Prophylaxis VTE Prophylaxis Intervention: LMWH Lines/Catheters Urinary Cath still in place: No Assessment/Plan Assessment/Plan 1. Left comminuted intertrochanteric hip fracture status post intramedullary rosa with impaired mobility/gait/ADLs. Continue PT/OT. Max assist for lower body dressing, min assist for grooming. Continue to monitor surgical site. Acute postoperative pain controlled, continue pain regimen. 2. Post operative encephalopathy. Continue supportive treatment. Continue ST. 3. Anemia. Monitor hemoglobin/hematocrit. 4. Hypothyroidism. Continue levothyroxine. 5. Dyslipidemia. Continue statin. 6. Hypertension. BP controlled. Subjective 24 Hr Interval Summary Free Text/Dictation Rehab progress note Subjective: No acute complaints. Reports no current left hip pain. ROS: Denies chest pain, no shortness of breath, no nausea or vomiting, no chills. No abdominal pain. Exam/Review of Systems Vital Signs Vitals Vital Signs Date Time Temp Pulse Resp B/P Pulse Ox O2 Delivery O2 Flow Rate FiO2 07/30/16 07:10 98.2 95 18 132/75 92 07/29/16 07:49 Room Air Intake and Output 07/29/16 07/29/16 07/30/16 15:00 23:00 07:00 Intake Total 1100 ml Output Total 100 ml Balance 1100 ml -100 ml Exam General: Awake, alert, no acute distress CV: Regular rate, s1s2 Lungs without wheezing, symmetrical air entry Abdomen is soft, nontender Extremities: +LE edema, left hip surgical site with kuldip clean and dry. Neuro: No new focal changes. Results Result Diagram: 07/27/1662407/27/16624 Medications Medications Current Medications Lorazepam (Ativan) 0.5 mg Q4H PRN IM AGITATION Last administered on 07/29/16 20:53; Admin Dose 0.5 MG; Start 07/26/16 at 22:00 Acetaminophen (Tylenol Tab) 650 mg Q6H PRN PO PAIN AND OR ELEVATED TEMP; Start 07/26/16 at 22:30 Baclofen (Lioresal) 10 mg DAILY PO Last administered on 07/30/16 09:22; Admin Dose 10 MG; Start 07/27/16 at 09:00 Cholecalciferol (Vitamin D) 1,000 unit DAILY PO Last administered on 07/30/16 09:21; Admin Dose 1,000 UNIT; Start 07/27/16 at 09:00 Docusate Sodium (Colace) 100 mg Q12H PRN PO CONSTIPATION; Start 07/26/16 at 22: 30 Enoxaparin Sodium (Lovenox) 40 mg DAILY SC Last administered on 07/30/16 09:20 ; Admin Dose 40 MG; Start 07/27/16 at 09:00 Ferrous Sulfate (Ferrous Sulfate (Ec)) 325 mg DAILY PO Last administered on 09:21; Admin Dose 325 MG; Start 07/27/16 at 09:00 Gabapentin (Neurontin) 300 mg HS PO Last administered on 07/29/16 20:42; Admin Dose 300 MG; Start 07/26/16 at 22:30 Acetaminophen/ Hydrocodone Bitart ([place] (5/325)) 1 tab Q6H PRN PO PAIN Last administered on 07/29/16 20:47; Admin Dose 1 TAB; Start 07/26/16 at 22:30 Lorazepam (Ativan) 0.5 mg Q6H PRN PO ANXIETY; Start 07/26/16 at 22:30 Magnesium Hydroxide (Milk Of Mag) 30 ml DAILY PRN PO CONSTIPATION Last administered on 07/30/16 06:16; Admin Dose 30 ML; Start 07/26/16 at 22:30 Magnesium Oxide (Mag-Ox 400) 400 mg BID PO Last administered on 07/30/16 09:21 ; Admin Dose 400 MG; Start 07/26/16 at 22:30 Meclizine HCl (Antivert) 25 mg BID PRN PO DIZZINESS Last administered on 20:30; Admin Dose 25 MG; Start 07/26/16 at 22:30 Metoprolol Tartrate (Lopressor) 25 mg BID PO Last administered on 07/30/16 09: 22; Admin Dose 25 MG; Start 07/26/16 at 22:30 Ondansetron HCl (Zofran Inj) 4 mg Q6H PRN IV NAUSEA AND/OR VOMITING; Start 07/26 at 22:30 Pantoprazole (Protonix Tab) 40 mg DAILY@06 PO Last administered on 07/30/16 06 :14; Admin Dose 40 MG; Start 07/27/16 at 06:00 Quetiapine Fumarate (Seroquel) 25 mg BID PO Last administered on 07/30/16 09: 22; Admin Dose 25 MG; Start 07/26/16 at 22:30 Zolpidem Tartrate (Ambien) 5 mg HS PRN PO INSOMNIA; Start 07/26/16 at 22:30 Docusate Sodium (Colace) 100 mg BID PO Last administered on 07/30/16 09:21; Admin Dose 100 MG; Start 07/27/16 at 09:00 Senna (Senokot) 1 tab HS PO Last administered on 07/29/16 20:41; Admin Dose 1 TAB; Start 07/27/16 at 21:00 Bisacodyl (Dulcolax Supp) 10 mg DAILY PRN [place] CONSTIPATION; Start 07/27/16 at 03: 15 Lactulose (Enulose) 20 gm DAILY PRN PO CONSTIPATION Last administered on 09:22; Admin Dose 20 GM; Start 07/27/16 at 03:15 Atorvastatin Calcium (Lipitor) 20 mg DAILY@21 PO Last administered on 20:41; Admin Dose 20 MG; Start 07/27/16 at 21:00 Hydromorphone HCl (Dilaudid) 0.5 mg Q3H PRN IM PAIN Last administered on 19:29; Admin Dose 0.5 MG; Start 07/27/16 at 15:00 Memantine (Namenda) 10 mg BID PO Last administered on 07/30/16 09:21; Admin Dose 10 MG; Start 07/27/16 at 21:00 Dipyridamole/ Aspirin (Aggrenox) 1 cap BID PO Last administered on 07/30/16 09 :21; Admin Dose 1 CAP; Start 07/27/16 at 21:00 JJ ZURITA Jul 30, 2016 10:26
[2016-07-30 10:49] LABS: BASOPHILS % 0.3 % (0.0-2.0); EOSINOPHILS # 0.1 10^3/ul (0.0-0.5); EOSINOPHILS % 1.6 % (0.0-7.0); HEMATOCRIT 37.1 % (37.0-47.0); HEMOGLOBIN 12.2 g/dl (12.0-16.0); LYMPHOCYTES # 1.5 10^3/ul (0.8-2.9); LYMPHOCYTES % 19.2 % (15.0-51.0); MEAN CORPUSCULAR HEMOGLOBIN 30.3 pg (29.0-33.0); MEAN CORPUSCULAR HGB CONC 32.8 g/dl (32.0-37.0); MEAN CORPUSCULAR VOLUME 92.2 fl (82.0-101.0); MEAN PLATELET VOLUME 9.1 fl (7.4-10.4); MONOCYTE # 0.6 10^3/ul (0.3-0.9); NEUTROPHIL # 5.4 10^3/ul (1.6-7.5); NEUTROPHILS % 70.9 % (39.0-77.0); PLATELET COUNT 469 10^3/UL (140-440); RED BLOOD COUNT 4.02 10^6/ul (4.20-5.40); RED CELL DISTRIBUTION WIDTH 20.7 % (11.5-14.5); UNCORRECTED WBC 7.6 10^3/ul (4.8-10.8); WHITE BLOOD COUNT 7.6 10^3/ul (4.8-10.8)
[2016-07-30 10:55] LABS: CONDITION 1; LH ANALYZER COMMENTS 1
[2016-07-30 11:03] LABS: CREATININE 0.56 mg/dl (0.44-1.00); MAGNESIUM 2.2 mg/dl (1.7-2.5); PHOSPHORUS 3.5 mg/dl (2.5-4.9)
[2016-07-30 11:04] LABS: CALCIUM 8.6 mg/dl (8.4-10.2)
[2016-07-30] MEDS: HYDROCODONE/APAP (5/325) TAB PO PRN (18:15)
--- NOTE | 2016-07-30 18:43 | PN ---
DATE: 07/30/2016 Patient seen. Patient appears to be with no acute issues. PHYSICAL EXAMINATION: VITAL SIGNS: Temperature 98.2, pulse 75, respirations 18, blood pressure 132/75, saturation 92% on room air. GENERAL: No acute distress. HEENT: Normocephalic, atraumatic. The patient is pale. CARDIOVASCULAR: S1, S2, regular rate. LUNGS: Clear. ABDOMEN: Soft, nontender. EXTREMITIES: Left thigh hematoma, stable. LABORATORY DATA: White count 7.6, hemoglobin better at 12.2 ____, hematocrit 37, platelet count nae vated 469, neutrophils 71%, lymphocytes 19%. Sodium 139, potassium increased to 5, chloride 104, bi carbonate 27, BUN is 10, creatinine 0.56, glucose of 112. Phosphorus 3.5, magnesium 2.2. MEDICATIONS: Include: 1. Senna 1 tab at bedtime. 2. Lipitor 20 mg daily. 3. Namenda 10 mg b.i.d. 4. Aggrenox 1 tab b.i.d. 5. Dilaudid 0.5 IM q.3 p.r.n. 6. Baclofen 10 daily. 7. Vitamin D 1000 daily. 8. Lovenox 40 mg subq daily. 9. Ferrous sulfate 325 daily. 10. Colace 100 b.i.d. 11. Synthroid 50 mcg daily. 12. Protonix 40 mg daily. 13. Dulcolax p.r.n. 14. Lactulose p.r.n. 15. Tylenol p.r.n. 16. Colace p.r.n. 17. Neurontin 300 at bedtime. 18. Boyd 1 tab q.6 p.r.n. 19. Ativan 0.5 p.o. q.6 p.r.n. 20. Milk of magnesia p.r.n. 21. Antivert p.r.n. 22. Lopressor 25 b.i.d. 23. Zofran p.r.n. 24. Seroquel 25 b.i.d. 25. Ambien 5 mg at bedtime p.r.n. ASSESSMENT AND PLAN: This is an unfortunate 86-year-old Latvian-speaking female with history of hy pertension, osteoarthritis, dyslipidemia, osteoporosis, status post left hip ORIF secondary to fract ure. 1. Status post left hip open reduction internal fixation. Continue physical therapy, occupational therapy. Continue deep venous thrombosis prophylaxis. 2. Questionable cerebrovascular accident in the past, on Aggrenox. 3. Hypothyroidism, on Synthroid. 4. History of thoracic aneurysm and pulmonary nodule. May repeat CAT scan. We will discuss with mayo schaefer. 5. Tendency to tachycardia. Continue beta blockers. 6. Continue gastrointestinal prophylaxis. 7. Monitor patient's p.o. intake. 8. Psychiatric. Resume all psych medications. The Seroquel definitely is helping. 9. Continue stool softeners. 10. Keep the patient comfortable. We will follow. Dictated By: ESTER CUBA/BETI Conf#: [id number] DID#: [id number]
[2016-07-30 20:00] VITALS: BP 121/79; PULSE 110; RESP 18
[2016-07-30] MEDS: GABAPENTIN 300 MG CAP PO SCH (20:48)
[2016-07-30] MEDS: ATORVASTATIN 20 MG TAB PO SCH (20:49)
[2016-07-30] MEDS: SENNA TAB PO SCH (20:49)
[2016-07-30] MEDS: LORAZEPAM 2 MG INJ IM PRN ×2 (21:27→22:00)
[2016-07-31] MEDS: PANTOPRAZOLE (EC) 40 MG TAB PO SCH (05:28)
[2016-07-31] MEDS: HYDROCODONE/APAP (5/325) TAB PO PRN (05:57)
[2016-07-31] MEDS: LEVOTHYROXINE 50 MCG TAB PO SCH (06:20)
[2016-07-31 07:30] VITALS: BP 117/77; RESP 18
[2016-07-31] MEDS: ENOXAPARIN 40 MG/0.4 ML SYG SC SCH (09:00)
[2016-07-31] MEDS: MEMANTINE 10 MG TAB PO SCH ×2 (09:00→20:27)
[2016-07-31] MEDS: DIPYRIDAMOLE/ASPIRIN (SR) CAP PO SCH ×2 (09:00→20:26)
[2016-07-31] MEDS: QUETIAPINE 25 MG TAB PO SCH ×2 (09:00→20:26)
[2016-07-31] MEDS: FERROUS SULFATE (EC) 325 MG TAB PO SCH (09:01)
[2016-07-31] MEDS: DOCUSATE SODIUM 100 MG CAP PO SCH ×2 (09:01→20:28)
[2016-07-31] MEDS: MAGNESIUM OXIDE 400 MG TAB PO SCH ×2 (09:02→20:26)
[2016-07-31] MEDS: CHOLECALCIFEROL 1,000 UNIT TAB PO SCH (09:02)
[2016-07-31] MEDS: METOPROLOL 25 MG TAB PO SCH ×2 (09:02→20:27)
[2016-07-31] MEDS: BACLOFEN 10 MG TAB PO SCH (09:02)
[2016-07-31] MEDS ORDERED: BETAMETHASONE/CLOTRIMAZOLE 15 GM CR TOP PRN (12:00)
--- NOTE | 2016-07-31 12:31 | CONS ---
Date/Time of Note Date/Time of Note DATE: 07/31/16 TIME: 12:29 Consult Date/Type/Reason Admit Date/Time Jul 26, 2016 at 21:35 Subjective Patient requires encouragement for activities Objective Vital Signs Date Time Temp Pulse Resp B/P Pulse Ox O2 Delivery O2 Flow Rate FiO2 07/30/16 20:00 98.8 110 18 121/79 93 Room Air Intake and Output 07/30/16 07/30/16 07/31/16 14:59 22:59 06:59 Intake Total 240 ml 240 ml Balance 240 ml 240 ml INTERDISCIPLINARY TEAM CONFERENCE BOWEL- Cont BLADDER-Cont SKIN- intact OT- DRESSING-min/mod BATHING-min/mod TOILETING-min/mod PT- BED MOBILITY-mod TRANSFERS-mod/max AMBULATION-max 10 feet SPEECH- COGNITION-mod A/P- Interdisciplinary team conference held today. Please see interdisciplinary sheet. Working toward d.c. on 08/08 with post discharge follow up of physical therapy, occupational therapy. Results/Medications Result Diagram: 07/30/16 0950 07/30/16 0950 Medications Current Medications Lorazepam (Ativan) 0.5 mg Q4H PRN IM AGITATION Last administered on 07/30/16 21:27; Admin Dose 0.5 MG; Start 07/26/16 at 22:00 Acetaminophen (Tylenol Tab) 650 mg Q6H PRN PO PAIN AND OR ELEVATED TEMP; Start 07/26/16 at 22:30 Baclofen (Lioresal) 10 mg DAILY PO Last administered on 07/31/16 09:02; Admin Dose 10 MG; Start 07/27/16 at 09:00 Cholecalciferol (Vitamin D) 1,000 unit DAILY PO Last administered on 07/31/16 09:02; Admin Dose 1,000 UNIT; Start 07/27/16 at 09:00 Docusate Sodium (Colace) 100 mg Q12H PRN PO CONSTIPATION; Start 07/26/16 at 22: 30 Enoxaparin Sodium (Lovenox) 40 mg DAILY SC Last administered on 07/30/16 09:20 ; Admin Dose 40 MG; Start 07/27/16 at 09:00 Ferrous Sulfate (Ferrous Sulfate (Ec)) 325 mg DAILY PO Last administered on 09:01; Admin Dose 325 MG; Start 07/27/16 at 09:00 Gabapentin (Neurontin) 300 mg HS PO Last administered on 07/30/16 20:48; Admin Dose 300 MG; Start 07/26/16 at 22:30 Acetaminophen/ Hydrocodone Bitart ([place] (5/325)) 1 tab Q6H PRN PO PAIN Last administered on 07/29/16 20:47; Admin Dose 1 TAB; Start 07/26/16 at 22:30 Lorazepam (Ativan) 0.5 mg Q6H PRN PO ANXIETY; Start 07/26/16 at 22:30 Magnesium Hydroxide (Milk Of Mag) 30 ml DAILY PRN PO CONSTIPATION Last administered on 07/30/16 06:16; Admin Dose 30 ML; Start 07/26/16 at 22:30 Magnesium Oxide (Mag-Ox 400) 400 mg BID PO Last administered on 07/31/16 09:02 ; Admin Dose 400 MG; Start 07/26/16 at 22:30 Meclizine HCl (Antivert) 25 mg BID PRN PO DIZZINESS Last administered on 20:30; Admin Dose 25 MG; Start 07/26/16 at 22:30 Metoprolol Tartrate (Lopressor) 25 mg BID PO Last administered on 07/31/16 09: 02; Admin Dose 25 MG; Start 07/26/16 at 22:30 Ondansetron HCl (Zofran Inj) 4 mg Q6H PRN IV NAUSEA AND/OR VOMITING; Start 07/26 at 22:30 Pantoprazole (Protonix Tab) 40 mg DAILY@06 PO Last administered on 07/30/16 06 :14; Admin Dose 40 MG; Start 07/27/16 at 06:00 Quetiapine Fumarate (Seroquel) 25 mg BID PO Last administered on 07/31/16 09: 00; Admin Dose 25 MG; Start 07/26/16 at 22:30 Zolpidem Tartrate (Ambien) 5 mg HS PRN PO INSOMNIA; Start 07/26/16 at 22:30 Docusate Sodium (Colace) 100 mg BID PO Last administered on 07/31/16 09:01; Admin Dose 100 MG; Start 07/27/16 at 09:00 Senna (Senokot) 1 tab HS PO Last administered on 07/30/16 20:49; Admin Dose 1 TAB; Start 07/27/16 at 21:00 Bisacodyl (Dulcolax Supp) 10 mg DAILY PRN [place] CONSTIPATION Last administered on 07/30/16 18:26; Admin Dose 10 MG; Start 07/27/16 at 03:15 Lactulose (Enulose) 20 gm DAILY PRN PO CONSTIPATION Last administered on 09:22; Admin Dose 20 GM; Start 07/27/16 at 03:15 Atorvastatin Calcium (Lipitor) 20 mg DAILY@21 PO Last administered on 20:49; Admin Dose 20 MG; Start 07/27/16 at 21:00 Hydromorphone HCl (Dilaudid) 0.5 mg Q3H PRN IM PAIN Last administered on 19:29; Admin Dose 0.5 MG; Start 07/27/16 at 15:00 Memantine (Namenda) 10 mg BID PO Last administered on 07/31/16 09:00; Admin Dose 10 MG; Start 07/27/16 at 21:00 Dipyridamole/ Aspirin (Aggrenox) 1 cap BID PO Last administered on 07/31/16 09 :00; Admin Dose 1 CAP; Start 07/27/16 at 21:00 Betamethasone/ Clotrimazole (Lotrisone Cr) 1 applic BID PRN TOP excoriation; Start 07/31/16 at 12:00 KANA GRACE MD Jul 31, 2016 12:30
--- NOTE | 2016-07-31 17:12 | PN ---
DATE: 07/31/2016 SUBJECTIVE: Patient seen unfortunately, refusing to eat, taking her medications. Patient appears a lert. Also, does not participate as much as we want physical therapy as noted by the rehabilitation Physician. PHYSICAL EXAMINATION: VITAL SIGNS: Temperature 98.8. Remains tachy in the 90s to low 100s, respirations 18, blood pressu re 121/79, saturation 93% on room air. GENERAL: No acute distress. HEENT: Normocephalic, atraumatic. The patient is pale. CARDIOVASCULAR: S1 and S2, regular rate. LUNGS: Clear. ABDOMEN: Soft, nontender. EXTREMITIES: No clubbing, cyanosis, or edema. Hematoma in the left hip area. LABORATORY DATA: White count is 7.6, hemoglobin 12.2 that was yesterday. BUN, creatinine was zack l at 10/0.56. Again, she refused urine studies upon admission. MEDICATIONS: Patient is on: 1. Lotrisone b.i.d. p.r.n. 2. Senna 1 tab at bedtime. 3. Lipitor 20 daily. 4. Namenda 10 mg b.i.d. 5. Aggrenox 1 cap b.i.d. 6. Dilaudid 0.5 IM q.3h. p.r.n. 7. Baclofen 10 mg daily. 8. Vitamin D 1000 daily. 9. Lovenox 40 mg subcutaneous daily. 10. Ferrous sulfate 325 mg daily. 11. Colace 100 b.i.d. 12. Synthroid 50 mcg daily. 13. Protonix 40 mg daily. 14. Dulcolax p.r.n. 15. Lactulose p.r.n. 16. Tylenol p.r.n. 17. Colace p.r.n. 18. Neurontin 300 nightly. 19. [place] p.r.n. 20. Ativan p.r.n. 21. Milk of Magnesia p.r.n. 22. Mag oxide b.i.d. 23. Antivert p.r.n. 24. Lopressor 25 b.i.d. 25. Zofran p.r.n. 26. Seroquel 25 b.i.d. 27. Ambien p.r.n. 28. Ativan p.r.n. ASSESSMENT AND PLAN: 1. This is an unfortunate 86-year-old Kinyarwanda-speaking female with history of hypertension, osteoa rthritis, dyslipidemia, osteoporosis, status post left hip ORIF secondary to fracture. 2. Status post left hip open reduction internal fixation. Continue physical therapy, occupational therapy. Pain control encouragement to participate with physical therapy. 3. Continue deep vein thrombosis prophylaxis and gastrointestinal prophylaxis. 4. Hypothyroidism. Remains on Synthroid. 5. History of tachycardia. Patient is on beta blockers. Cardiology is following. Review of recor ds back on 12/15/2012, CT pulmonary angiogram showed at that time 4.5-cm ascending aortic aneurysm a nd 5-mm left apical pulmonary nodule. Will ask family if they would like us to reorder a CT scan of the chest. 6. Psychiatric. Resume all psych medications. Definitely will benefit from a psychiatric evaluati on or psychologist evaluation. Patient does better when family are present. 7. Continue stool softeners. 8. Continue pain medication as needed. Labs appears to be stable. Will monitor. Dictated By: ESTER CUBA/BETI Conf#: [id number] DID#: [id number]
--- NOTE | 2016-07-31 20:17 | RADRPT ---
PROCEDURE: CT Chest without contrast. CLINICAL INDICATION: History of ascending aortic aneurysm and pulmonary nodule. TECHNIQUE: CT scan of the chest without contrast was performed on a multidetector high-resolution CT scanner. Coronal and sagittal reformatted images were obtained from the axial source images. The total exam CTDI equals 7.87 mGy and the total exam DLP equals 249.18 mGy-cm. One or more of the following dose reduction techniques were used: - Automated exposure control. - Adjustment of the mA and/or kV according to patient size. Use of iterative reconstruction technique. COMPARISON: CT angiogram of the chest 12/15/2012. FINDINGS: There is a aneurysm of the ascending aorta which measures 5.1 x 4.9 cm in diameter. This previously measured 5 x 4.5 cm in diameter in the proximal ascending aorta. The descending thoracic aorta and aortic arch are normal in size. There is tortuosity of the distal thoracic and upper abdominal aort a but no aneurysm in these areas. There are vascular calcifications in the aortic arch and innominate artery. There are vascular calc ifications in the proximal portions of the right and left subclavian arteries. No enlarged supraclavicular mediastinal or hilar lymph nodes are identified. No enlarged axillary l ymph nodes are identified. There is a small pericardial effusion which is unchanged. The heart is mildly enlarged. The 5 mm left apical pulmonary nodule described on the CT angio chest dated 12/15/2012 is no longer visualized. There is a 1 cm pneumatocele adjacent to a 0.8 cm pulmonary nodule in the superior segment of the le ft lower lobe. This may be present on a series 3; image 48 on the prior study. It appears stable. There is a 7 ml pleural based nodular density in the periphery of the superior segment of the left l ower lobe suspicious for a pulmonary nodule. This was not identified on the prior exam. There is peripheral bibasilar atelectasis. No pleural effusion is present. The adrenal glands and visible portions of the kidneys are normal. The visible portions of the live r and spleen are normal. The colon is unremarkable as visualized. The small bowel loops and visibl e portions of the stomach are normal. There is a small hiatal hernia. IMPRESSION: 1. 5.1 x 4.9 cm aneurysm of the ascending aorta. This previously measured 5 x 4.5 cm. 2. Cardiomegaly with a small pericardial effusion. Vascular calcifications are present also involv ing the coronary arteries. 3. The 5 mm left apical pulmonary nodule described on the CT angio chest of 12/15/2012 series 601; image 56 is no longer visualized. However, additional pulmonary nodules some of which are calcified are identified described above may be the result of a granulomatous process such as TB. At least o ne of these pulmonary nodules appears to be new. A repeat CT scan of the chest is recommended in 3- month along with to the skin testing to monitor for stability. 4. Bibasilar atelectasis. RPTAT:AAJJ Physician Ronny Date Time Electronically viewed and signed by Agustin Lopez Physician on 07/31/2016 20:17 /
[2016-07-31] MEDS: ATORVASTATIN 20 MG TAB PO SCH (20:26)
[2016-07-31] MEDS: GABAPENTIN 300 MG CAP PO SCH (20:26)
[2016-07-31] MEDS: SENNA TAB PO SCH (20:27)
[2016-07-31 21:06] VITALS: BP 113/65; RESP 19
[2016-08-01] VITALS (7 sets, daily range): BP systolic 75–140; BP diastolic 59–70; PULSE 67–100; RESP 18–20
[2016-08-01] MEDS: PANTOPRAZOLE (EC) 40 MG TAB PO SCH (05:12)
[2016-08-01] MEDS: DOCUSATE SODIUM 100 MG CAP PO SCH ×2 (09:00→21:18)
[2016-08-01] MEDS: METOPROLOL 25 MG TAB PO SCH ×2 (09:00→21:18)
[2016-08-01] MEDS: FERROUS SULFATE (EC) 325 MG TAB PO SCH (09:09)
[2016-08-01] MEDS: QUETIAPINE 25 MG TAB PO SCH ×2 (09:09→21:18)
[2016-08-01] MEDS: MEMANTINE 10 MG TAB PO SCH ×2 (09:09→21:17)
[2016-08-01] MEDS: LEVOTHYROXINE 50 MCG TAB PO SCH (09:09)
[2016-08-01] MEDS: BACLOFEN 10 MG TAB PO SCH (09:09)
[2016-08-01] MEDS: DIPYRIDAMOLE/ASPIRIN (SR) CAP PO SCH ×2 (09:09→21:17)
[2016-08-01] MEDS: CHOLECALCIFEROL 1,000 UNIT TAB PO SCH (09:10)
[2016-08-01] MEDS: MAGNESIUM OXIDE 400 MG TAB PO SCH ×2 (09:10→21:19)
[2016-08-01] MEDS: ENOXAPARIN 40 MG/0.4 ML SYG SC SCH (09:16)
[2016-08-01] MEDS: ACETAMINOPHEN 325 MG TAB PO PRN (10:46)
--- NOTE | 2016-08-01 11:53 | CONS ---
Date/Time of Note Date/Time of Note DATE: 08/01/16 TIME: 11:51 Consult Date/Type/Reason Admit Date/Time Jul 26, 2016 at 21:35 Subjective Patient ambulated this Am. RN reports orthostatic hypotension Objective pulm- cta ambulation with PT today Vital Signs Date Time Temp Pulse Resp B/P Pulse Ox O2 Delivery O2 Flow Rate FiO2 08/01/16 08:00 98.0 67 18 108/67 95 Room Air Intake and Output 07/31/16 07/31/16 08/01/16 15:00 23:00 07:00 Intake Total 240 ml 300 ml Balance 240 ml 300 ml Results/Medications Result Diagram: 07/30/1650 07/30/1650 Medications Current Medications Lorazepam (Ativan) 0.5 mg Q4H PRN IM AGITATION Last administered on 07/30/16 22:00; Admin Dose 0.5 MG; Start 07/26/16 at 22:00 Acetaminophen (Tylenol Tab) 650 mg Q6H PRN PO PAIN AND OR ELEVATED TEMP Last administered on 08/01/16 10:46; Admin Dose 650 MG; Start 07/26/16 at 22:30 Baclofen (Lioresal) 10 mg DAILY PO Last administered on 08/01/16 09:09; Admin Dose 10 MG; Start 07/27/16 at 09:00 Cholecalciferol (Vitamin D) 1,000 unit DAILY PO Last administered on 08/01/16 09:10; Admin Dose 1,000 UNIT; Start 07/27/16 at 09:00 Docusate Sodium (Colace) 100 mg Q12H PRN PO CONSTIPATION; Start 07/26/16 at 22: 30 Enoxaparin Sodium (Lovenox) 40 mg DAILY SC Last administered on 08/01/16 09:16 ; Admin Dose 40 MG; Start 07/27/16 at 09:00 Ferrous Sulfate (Ferrous Sulfate (Ec)) 325 mg DAILY PO Last administered on 09:09; Admin Dose 325 MG; Start 07/27/16 at 09:00 Gabapentin (Neurontin) 300 mg HS PO Last administered on 07/31/16 20:26; Admin Dose 300 MG; Start 07/26/16 at 22:30 Acetaminophen/ Hydrocodone Bitart ([place] (5/325)) 1 tab Q6H PRN PO PAIN Last administered on 07/29/16 20:47; Admin Dose 1 TAB; Start 07/26/16 at 22:30 Lorazepam (Ativan) 0.5 mg Q6H PRN PO ANXIETY Last administered on 07/31/16 20: 31; Admin Dose 0.5 MG; Start 07/26/16 at 22:30 Magnesium Hydroxide (Milk Of Mag) 30 ml DAILY PRN PO CONSTIPATION Last administered on 07/30/16 06:16; Admin Dose 30 ML; Start 07/26/16 at 22:30 Magnesium Oxide (Mag-Ox 400) 400 mg BID PO Last administered on 08/01/16 09:10 ; Admin Dose 400 MG; Start 07/26/16 at 22:30 Meclizine HCl (Antivert) 25 mg BID PRN PO DIZZINESS Last administered on 20:30; Admin Dose 25 MG; Start 07/26/16 at 22:30 Metoprolol Tartrate (Lopressor) 25 mg BID PO Last administered on 07/31/16 20: 27; Admin Dose 25 MG; Start 07/26/16 at 22:30 Ondansetron HCl (Zofran Inj) 4 mg Q6H PRN IV NAUSEA AND/OR VOMITING; Start 07/26 at 22:30 Pantoprazole (Protonix Tab) 40 mg DAILY@06 PO Last administered on 07/30/16 06 :14; Admin Dose 40 MG; Start 07/27/16 at 06:00 Quetiapine Fumarate (Seroquel) 25 mg BID PO Last administered on 08/01/16 09: 09; Admin Dose 25 MG; Start 07/26/16 at 22:30 Zolpidem Tartrate (Ambien) 5 mg HS PRN PO INSOMNIA; Start 07/26/16 at 22:30 Docusate Sodium (Colace) 100 mg BID PO Last administered on 07/31/16 20:28; Admin Dose 100 MG; Start 07/27/16 at 09:00 Senna (Senokot) 1 tab HS PO Last administered on 07/31/16 20:27; Admin Dose 1 TAB; Start 07/27/16 at 21:00 Bisacodyl (Dulcolax Supp) 10 mg DAILY PRN [place] CONSTIPATION Last administered on 07/30/16 18:26; Admin Dose 10 MG; Start 07/27/16 at 03:15 Lactulose (Enulose) 20 gm DAILY PRN PO CONSTIPATION Last administered on 09:22; Admin Dose 20 GM; Start 07/27/16 at 03:15 Atorvastatin Calcium (Lipitor) 20 mg DAILY@21 PO Last administered on 20:26; Admin Dose 20 MG; Start 07/27/16 at 21:00 Hydromorphone HCl (Dilaudid) 0.5 mg Q3H PRN IM PAIN Last administered on 19:29; Admin Dose 0.5 MG; Start 07/27/16 at 15:00 Memantine (Namenda) 10 mg BID PO Last administered on 08/01/16 09:09; Admin Dose 10 MG; Start 07/27/16 at 21:00 Dipyridamole/ Aspirin (Aggrenox) 1 cap BID PO Last administered on 08/01/16 09 :09; Admin Dose 1 CAP; Start 07/27/16 at 21:00 Betamethasone/ Clotrimazole (Lotrisone Cr) 1 applic BID PRN TOP excoriation; Start 07/31/16 at 12:00 Assessment/Plan Additional Assessment/Plan Rehab- Left intertrochanteric comminuted hip fracture status post intramedullary rosa. Continue rehab activities as tolerated. Pt did require return to bed due to orthostatic hypotension orthostatic- IVF started Mild encephalopathy with confusion- improving Anemia. Hypothyroidism. Urinary tract infection. Dyslipidemia. KANA GRACE MD Aug 01, 2016 11:53
[2016-08-01] MEDS: SOD CHLORIDE 0.9% 1,000 ML IV SCH (12:22)
[2016-08-01 14:45] LABS: BASOPHILS % 0.5 % (0.0-2.0); EOSINOPHILS # 0.1 10^3/ul (0.0-0.5); EOSINOPHILS % 0.9 % (0.0-7.0); HEMATOCRIT 37.2 % (37.0-47.0); HEMOGLOBIN 12.2 g/dl (12.0-16.0); LYMPHOCYTES # 2.1 10^3/ul (0.8-2.9); LYMPHOCYTES % 24.3 % (15.0-51.0); MEAN CORPUSCULAR HEMOGLOBIN 30.7 pg (29.0-33.0); MEAN CORPUSCULAR HGB CONC 32.9 g/dl (32.0-37.0); MEAN CORPUSCULAR VOLUME 93.4 fl (82.0-101.0); MEAN PLATELET VOLUME 9.5 fl (7.4-10.4); MONOCYTE # 0.6 10^3/ul (0.3-0.9); MONOCYTES % 7.3 % (0.0-11.0); NEUTROPHIL # 5.7 10^3/ul (1.6-7.5); PLATELET COUNT 449 10^3/UL (140-440); RED BLOOD COUNT 3.98 10^6/ul (4.20-5.40); RED CELL DISTRIBUTION WIDTH 20.3 % (11.5-14.5); UNCORRECTED WBC 8.6 10^3/ul (4.8-10.8); WHITE BLOOD COUNT 8.6 10^3/ul (4.8-10.8)
[2016-08-01 14:48] LABS: CONDITION 1
[2016-08-01 14:49] LABS: LH ANALYZER COMMENTS 1
[2016-08-01 14:53] LABS: POTASSIUM 4.1 mmol/L (3.5-5.1)
[2016-08-01 14:56] LABS: CREATININE 0.62 mg/dl (0.44-1.00)
[2016-08-01 14:57] LABS: CALCIUM 8.2 mg/dl (8.4-10.2)
--- NOTE | 2016-08-01 16:03 | PN ---
DATE: 08/01/2016 SUBJECTIVE: Patient seen. Unfortunately after she did quite well with physical therapy, she had an episode of hypotension as they were planning to draw blood on her. The patient appeared to be anxi ous. Blood pressure went to the 70s. The patient was placed in bed and now she is receiving fluid hydration. The patient is feeling better. She does appear clinically dry. Case discussed with the daughter at bedside and nursing staff. PHYSICAL EXAMINATION: VITAL SIGNS: Temperature was 98, pulse 67, respirations 18, blood pressure 108/67, saturation 95%. GENERAL: No acute distress. HEENT: Normocephalic, atraumatic. The patient is pale, positive dry mucous membranes. CARDIOVASCULAR: S1, S2, regular rate and rhythm. LUNGS: Clear. ABDOMEN: Soft, nontender. EXTREMITIES: No clubbing, cyanosis, or edema. LABORATORY DATA: No new labs today. Labs on 07/30/2016 were all reviewed. The patient's MRSA scre ening on 07/31/2016 is in process. The patient's chest CT done on 07/31/2016, I ordered because of the aneurysm. It shows 5.1 x 4.9 cm aneurysm of the ascending aorta. This is previously measured 5 x 4.5, so it did not increase that much as it has been 3 years. There is cardiomegaly with small p ericardial effusion, vascular calcification, presented also involving the coronary arteries. There is a 5 mm left apical pulmonary nodule described on CT scan. IgE on 12/15/2012 series 601 is no yana ania visualized; however, additional pulmonary nodules, some of which are calcified identified descri bed above may be the result of granulomatous process such as TB. At least one of these pulmonary no dules appear to be new. Repeat CT scan of the chest recommended in 3 months along with the skin candelaria ting to monitor stability of the basilar atelectasis. ASSESSMENT AND PLAN: This is an 86-year-old Guamanian-speaking female with history of hypertension, osteoarthritis, dyslipidemia, osteoporosis, status post left hip open reduction internal fixation s econdary to fracture who presented for rehabilitation. 1. Status post left hip open reduction internal fixation. Continue physical therapy, occupational therapy and overall improving. 2. Episodes of hypotension likely secondary to orthostatics and some anxiety factor. The patient w as dehydrated with fluids and already doing better. 3. Thoracic aneurysm is slightly bigger. It did not increase too much in 3-1/2 years. A small pul monary nodule was noted. We will discuss with family. Followup CAT scan in a few months. 4. Hypothyroidism. Continue Synthroid. 5. Tachycardia at times, likely from orthostatics and pain. We will follow. 6. Psychiatric. Resume all psych medications. 7. Continue stool softener. 8. Pain control as needed. 9. Encourage her to eat. She is a very picky eater. She does eat when the family is there. 10. Dementia on Namenda. 11. Continue deep vein thrombosis prophylaxis and gastrointestinal prophylaxis. Case discussed with daughter. We will follow. Dictated By: ESTER CUBA/BETI Conf#: [id number] DID#: [id number]
[2016-08-01] MEDS: SENNA TAB PO SCH (21:18)
[2016-08-01] MEDS: GABAPENTIN 300 MG CAP PO SCH (21:18)
[2016-08-01] MEDS: ATORVASTATIN 20 MG TAB PO SCH (21:19)
[2016-08-01] MEDS: HYDROCODONE/APAP (5/325) TAB PO PRN (21:19)
[2016-08-02] MEDS: LORAZEPAM 2 MG INJ IM PRN (01:04)
[2016-08-02] MEDS: SOD CHLORIDE 0.9% 1,000 ML IV SCH ×2 (01:16→15:12)
[2016-08-02] MEDS: PANTOPRAZOLE (EC) 40 MG TAB PO SCH (06:00)
[2016-08-02] MEDS: LEVOTHYROXINE 50 MCG TAB PO SCH (07:00)
[2016-08-02 08:00] VITALS: BP 141/85; PULSE 95; RESP 20
[2016-08-02] MEDS: DOCUSATE SODIUM 100 MG CAP PO SCH ×2 (08:57→21:00)
[2016-08-02] MEDS: BACLOFEN 10 MG TAB PO SCH (08:57)
[2016-08-02] MEDS: MEMANTINE 10 MG TAB PO SCH ×2 (08:57→21:00)
[2016-08-02] MEDS: CHOLECALCIFEROL 1,000 UNIT TAB PO SCH (08:57)
[2016-08-02] MEDS: MAGNESIUM OXIDE 400 MG TAB PO SCH ×2 (08:57→21:00)
[2016-08-02] MEDS: DIPYRIDAMOLE/ASPIRIN (SR) CAP PO SCH ×2 (08:58→21:00)
[2016-08-02] MEDS: FERROUS SULFATE (EC) 325 MG TAB PO SCH (08:58)
[2016-08-02] MEDS: METOPROLOL 25 MG TAB PO SCH ×2 (08:58→21:00)
[2016-08-02] MEDS: QUETIAPINE 25 MG TAB PO SCH ×2 (08:59→21:00)
[2016-08-02] MEDS: ACETAMINOPHEN 325 MG TAB PO PRN (09:04)
[2016-08-02] MEDS: ENOXAPARIN 40 MG/0.4 ML SYG SC SCH (09:08)
--- NOTE | 2016-08-02 10:51 | CONS ---
Date/Time of Note Date/Time of Note DATE: 08/02/16 TIME: 10:50 Consult Date/Type/Reason Admit Date/Time Jul 26, 2016 at 21:35 Subjective Improved participation today. BP also improved Objective pulm- cta min assist ambulation Vital Signs Date Time Temp Pulse Resp B/P Pulse Ox O2 Delivery O2 Flow Rate FiO2 08/02/16 08:00 98.2 95 20 141/85 94 Room Air Intake and Output 08/01/16 08/01/16 08/02/16 15:00 23:00 07:00 Intake Total 480 ml 930 ml 550 ml Balance 480 ml 930 ml 550 ml Results/Medications Result Diagram: 08/01/16 1406 08/01/16 1406 Results 24 hrs Laboratory Tests Test 08/01/16 14:06 Anion Gap 15 Basophils # 0.0 Basophils % 0.5 Blood Morphology Comment Blood Urea Nitrogen 11 Calcium Level 8.2 L Carbon Dioxide Level 23 Chloride Level 105 Creatinine 0.62 Eosinophils # 0.1 Eosinophils % 0.9 Glucose Level 149 Hematocrit 37.2 Hemoglobin 12.2 Lymphocytes # 2.1 Lymphocytes % 24.3 Mean Corpuscular Hemoglobin 30.7 Mean Corpuscular Hemoglobin Concent 32.9 Mean Corpuscular Volume 93.4 Mean Platelet Volume 9.5 Monocytes # 0.6 Monocytes % 7.3 Neutrophils # 5.7 Neutrophils % 67.0 Nucleated Red Blood Cells # 0.0 Nucleated Red Blood Cells % 0.0 Platelet Count 449 H Potassium Level 4.1 Red Blood Count 3.98 L Red Cell Distribution Width 20.3 H Sodium Level 139 White Blood Count 8.6 Medications Current Medications Lorazepam (Ativan) 0.5 mg Q4H PRN IM AGITATION Last administered on 08/02/16 01:04; Admin Dose 0.5 MG; Start 07/26/16 at 22:00 Acetaminophen (Tylenol Tab) 650 mg Q6H PRN PO PAIN AND OR ELEVATED TEMP Last administered on 08/02/16 09:04; Admin Dose 650 MG; Start 07/26/16 at 22:30 Baclofen (Lioresal) 10 mg DAILY PO Last administered on 08/02/16 08:57; Admin Dose 10 MG; Start 07/27/16 at 09:00 Cholecalciferol (Vitamin D) 1,000 unit DAILY PO Last administered on 08/02/16 08:57; Admin Dose 1,000 UNIT; Start 07/27/16 at 09:00 Docusate Sodium (Colace) 100 mg Q12H PRN PO CONSTIPATION; Start 07/26/16 at 22: 30 Enoxaparin Sodium (Lovenox) 40 mg DAILY SC Last administered on 08/02/16 09:08 ; Admin Dose 40 MG; Start 07/27/16 at 09:00 Ferrous Sulfate (Ferrous Sulfate (Ec)) 325 mg DAILY PO Last administered on 08:58; Admin Dose 325 MG; Start 07/27/16 at 09:00 Gabapentin (Neurontin) 300 mg HS PO Last administered on 08/01/16 21:18; Admin Dose 300 MG; Start 07/26/16 at 22:30 Acetaminophen/ Hydrocodone Bitart ([place] (5/325)) 1 tab Q6H PRN PO PAIN Last administered on 08/01/16 21:19; Admin Dose 1 TAB; Start 07/26/16 at 22:30 Lorazepam (Ativan) 0.5 mg Q6H PRN PO ANXIETY Last administered on 07/31/16 20: 31; Admin Dose 0.5 MG; Start 07/26/16 at 22:30 Magnesium Hydroxide (Milk Of Mag) 30 ml DAILY PRN PO CONSTIPATION Last administered on 07/30/16 06:16; Admin Dose 30 ML; Start 07/26/16 at 22:30 Magnesium Oxide (Mag-Ox 400) 400 mg BID PO Last administered on 08/02/16 08:57 ; Admin Dose 400 MG; Start 07/26/16 at 22:30 Meclizine HCl (Antivert) 25 mg BID PRN PO DIZZINESS Last administered on 20:30; Admin Dose 25 MG; Start 07/26/16 at 22:30 Metoprolol Tartrate (Lopressor) 25 mg BID PO Last administered on 08/02/16 08: 58; Admin Dose 25 MG; Start 07/26/16 at 22:30 Ondansetron HCl (Zofran Inj) 4 mg Q6H PRN IV NAUSEA AND/OR VOMITING; Start 07/26 at 22:30 Pantoprazole (Protonix Tab) 40 mg DAILY@06 PO Last administered on 07/30/16 06 :14; Admin Dose 40 MG; Start 07/27/16 at 06:00 Quetiapine Fumarate (Seroquel) 25 mg BID PO Last administered on 08/02/16 08: 59; Admin Dose 25 MG; Start 07/26/16 at 22:30 Zolpidem Tartrate (Ambien) 5 mg HS PRN PO INSOMNIA; Start 07/26/16 at 22:30 Docusate Sodium (Colace) 100 mg BID PO Last administered on 08/02/16 08:57; Admin Dose 100 MG; Start 07/27/16 at 09:00 Senna (Senokot) 1 tab HS PO Last administered on 08/01/16 21:18; Admin Dose 1 TAB; Start 07/27/16 at 21:00 Bisacodyl (Dulcolax Supp) 10 mg DAILY PRN [place] CONSTIPATION Last administered on 07/30/16 18:26; Admin Dose 10 MG; Start 07/27/16 at 03:15 Lactulose (Enulose) 20 gm DAILY PRN PO CONSTIPATION Last administered on 09:22; Admin Dose 20 GM; Start 07/27/16 at 03:15 Atorvastatin Calcium (Lipitor) 20 mg DAILY@21 PO Last administered on 21:19; Admin Dose 20 MG; Start 07/27/16 at 21:00 Hydromorphone HCl (Dilaudid) 0.5 mg Q3H PRN IM PAIN Last administered on 19:29; Admin Dose 0.5 MG; Start 07/27/16 at 15:00 Memantine (Namenda) 10 mg BID PO Last administered on 08/02/16 08:57; Admin Dose 10 MG; Start 07/27/16 at 21:00 Dipyridamole/ Aspirin (Aggrenox) 1 cap BID PO Last administered on 08/02/16 08 :58; Admin Dose 1 CAP; Start 07/27/16 at 21:00 Betamethasone/ Clotrimazole 1 applic 1 applic BID PRN TOP excoriation; Start at 12:00 Sodium Chloride (NS) 1,000 ml @ 75 mls/hr [id number] IV Last administered on 08/02 01:16; Admin Dose 75 MLS/HR; Start 08/01/16 at 12:00 Assessment/Plan Additional Assessment/Plan Rehab- Left intertrochanteric comminuted hip fracture status post intramedullary rosa. Increase activities as tolerated orthostatic- improved today Mild encephalopathy with confusion- interdisciplinary rehab Anemia. Hypothyroidism. Urinary tract infection. Dyslipidemia. KANA GRACE MD Aug 02, 2016 10:51
--- NOTE | 2016-08-02 15:12 | PN ---
DATE: 08/02/2016 SUBJECTIVE: The patient is doing better after fluid hydration. No episodes of hypotension anymore. The patient participated with therapy, but complaining of ongoing pain in the left hip. PHYSICAL EXAMINATION: VITAL SIGNS: Temperature 98.2, pulse 75, respirations 20, blood pressure 141/85, saturation 94% on room air. GENERAL: No acute distress. HEENT: Normocephalic, atraumatic. The patient is pale. CARDIOVASCULAR: S1, S2, regular rate. LUNGS: Clear. ABDOMEN: Soft, nontender. EXTREMITIES: No clubbing, cyanosis, or edema. LABORATORY DATA: No labs today. Labs yesterday were all reviewed. MRSA screening was negative. C T scan of the chest as noted. MEDICATIONS: Include: 1. Normal saline at 75 mL an hour. 2. Lotrisone cream b.i.d. 3. Senna 1 tab at bedtime. 4. Lipitor 20 mg daily. 5. Namenda 10 mg b.i.d. 6. Aggrenox 1 cap t.i.d. 7. Dilaudid 0.5 IM q.3h. p.r.n. 8. Baclofen 10 mg daily. 9. Vitamin D 1000 daily. 10. Lovenox 40 mg subcutaneous daily. 11. Ferrous sulfate 325 mg daily. 13. Colace 100 b.i.d. 14. Synthroid 50 mcg daily. 15. Protonix 40 mg daily. 16. Dulcolax p.r.n. 17. Lactulose p.r.n. 18. Tylenol p.r.n. 19. Neurontin 300 at bedtime. 20. [place] p.r.n. 21. Ativan p.r.n. 22. Milk of magnesia p.r.n. 23. Antivert p.r.n. 24. Lopressor 25 b.i.d. 25. Zofran p.r.n. 26. Seroquel 25 b.i.d. 27. Ambien p.r.n. ASSESSMENT AND PLAN: This is an unfortunate 86-year-old Greek-speaking female with history of hypertension, osteoarthr itis, dyslipidemia, osteoporosis, status post left hip ORIF secondary to fracture. 1. Status post left hip ORIF. Continue physical therapy, occupational therapy, speech therapy, pa in control. 2. Continue deep vein thrombosis prophylaxis and gastrointestinal prophylaxis. 3. Episode of hypotension status post fluid hydration, improved. 4. Thoracic aneurysm approximately 5.1 cm. Follow up as an outpatient basis. 5. Hypothyroidism, on Synthroid. 6. Tachycardia, likely secondary to slightly on hypotension and pain. Remains on beta blockers. 7. Psychiatric. Continue all psych medications. 8. Continue stool softeners. 9. Encourage her to eat. 10. Dementia. Continue Namenda. 11. Monitor labs periodically. We will follow. Dictated By: ESTER CUBA/BETI Conf#: [id number] DID#: [id number]
[2016-08-02] MEDS: GABAPENTIN 300 MG CAP PO SCH (21:00)
[2016-08-02] MEDS: SENNA TAB PO SCH (21:00)
[2016-08-02] MEDS: ATORVASTATIN 20 MG TAB PO SCH (21:00)
[2016-08-03] MEDS: PANTOPRAZOLE (EC) 40 MG TAB PO SCH (06:00)
[2016-08-03] MEDS: LEVOTHYROXINE 50 MCG TAB PO SCH (06:13)
[2016-08-03 08:23] VITALS: BP 112/67; PULSE 90; RESP 20
[2016-08-03] MEDS: DOCUSATE SODIUM 100 MG CAP PO SCH ×3 (09:00→21:00)
[2016-08-03] MEDS: METOPROLOL 25 MG TAB PO SCH ×3 (09:00→21:00)
[2016-08-03] MEDS: DIPYRIDAMOLE/ASPIRIN (SR) CAP PO SCH ×3 (09:00→21:00)
[2016-08-03] MEDS: MEMANTINE 10 MG TAB PO SCH ×3 (09:00→21:00)
[2016-08-03] MEDS: MAGNESIUM OXIDE 400 MG TAB PO SCH ×3 (09:00→21:00)
[2016-08-03] MEDS: ENOXAPARIN 40 MG/0.4 ML SYG SC SCH (09:00)
[2016-08-03] MEDS: QUETIAPINE 25 MG TAB PO SCH ×3 (09:04→21:00)
[2016-08-03] MEDS: BACLOFEN 10 MG TAB PO SCH (09:54)
[2016-08-03] MEDS: FERROUS SULFATE (EC) 325 MG TAB PO SCH (09:54)
[2016-08-03] MEDS: CHOLECALCIFEROL 1,000 UNIT TAB PO SCH (09:55)
[2016-08-03] MEDS: ACETAMINOPHEN 325 MG TAB PO PRN ×2 (12:14→17:57)
--- NOTE | 2016-08-03 12:48 | CONS ---
Date/Time of Note Date/Time of Note DATE: 08/03/16 TIME: 12:45 Consult Date/Type/Reason Admit Date/Time Jul 26, 2016 at 21:35 Subjective Patient requires encouragement for activities Objective pulm- cta card- s1s2 mod assist ambulation 30 feet Vital Signs Date Time Temp Pulse Resp B/P Pulse Ox O2 Delivery O2 Flow Rate FiO2 08/03/16 08:23 98.4 90 20 112/67 98 Room Air Intake and Output 08/02/16 08/02/16 08/03/16 15:00 23:00 07:00 Intake Total 480 ml 1000 ml 800 ml Balance 480 ml 1000 ml 800 ml Results/Medications Result Diagram: 08/01/16 1406 08/01/16 1406 Medications Current Medications Lorazepam (Ativan) 0.5 mg Q4H PRN IM AGITATION Last administered on 08/02/16 01:04; Admin Dose 0.5 MG; Start 07/26/16 at 22:00 Acetaminophen (Tylenol Tab) 650 mg Q6H PRN PO PAIN AND OR ELEVATED TEMP Last administered on 08/03/16 12:14; Admin Dose 650 MG; Start 07/26/16 at 22:30 Baclofen (Lioresal) 10 mg DAILY PO Last administered on 08/03/16 09:54; Admin Dose 10 MG; Start 07/27/16 at 09:00 Cholecalciferol (Vitamin D) 1,000 unit DAILY PO Last administered on 08/03/16 09:55; Admin Dose 1,000 UNIT; Start 07/27/16 at 09:00 Docusate Sodium (Colace) 100 mg Q12H PRN PO CONSTIPATION; Start 07/26/16 at 22: 30 Enoxaparin Sodium (Lovenox) 40 mg DAILY SC Last administered on 08/02/16 09:08 ; Admin Dose 40 MG; Start 07/27/16 at 09:00 Ferrous Sulfate (Ferrous Sulfate (Ec)) 325 mg DAILY PO Last administered on 09:54; Admin Dose 325 MG; Start 07/27/16 at 09:00 Gabapentin (Neurontin) 300 mg HS PO Last administered on 08/01/16 21:18; Admin Dose 300 MG; Start 07/26/16 at 22:30 Acetaminophen/ Hydrocodone Bitart ([place] (5/325)) 1 tab Q6H PRN PO PAIN Last administered on 08/01/16 21:19; Admin Dose 1 TAB; Start 07/26/16 at 22:30 Lorazepam (Ativan) 0.5 mg Q6H PRN PO ANXIETY Last administered on 07/31/16 20: 31; Admin Dose 0.5 MG; Start 07/26/16 at 22:30 Magnesium Hydroxide (Milk Of Mag) 30 ml DAILY PRN PO CONSTIPATION Last administered on 07/30/16 06:16; Admin Dose 30 ML; Start 07/26/16 at 22:30 Magnesium Oxide (Mag-Ox 400) 400 mg BID PO Last administered on 08/02/16 08:57 ; Admin Dose 400 MG; Start 07/26/16 at 22:30 Meclizine HCl (Antivert) 25 mg BID PRN PO DIZZINESS Last administered on 20:30; Admin Dose 25 MG; Start 07/26/16 at 22:30 Metoprolol Tartrate (Lopressor) 25 mg BID PO Last administered on 08/02/16 08: 58; Admin Dose 25 MG; Start 07/26/16 at 22:30 Ondansetron HCl (Zofran Inj) 4 mg Q6H PRN IV NAUSEA AND/OR VOMITING; Start 07/26 at 22:30 Pantoprazole (Protonix Tab) 40 mg DAILY@06 PO Last administered on 07/30/16 06 :14; Admin Dose 40 MG; Start 07/27/16 at 06:00 Quetiapine Fumarate (Seroquel) 25 mg BID PO Last administered on 08/03/16 09: 54; Admin Dose 25 MG; Start 07/26/16 at 22:30 Zolpidem Tartrate (Ambien) 5 mg HS PRN PO INSOMNIA; Start 07/26/16 at 22:30 Docusate Sodium (Colace) 100 mg BID PO Last administered on 08/02/16 08:57; Admin Dose 100 MG; Start 07/27/16 at 09:00 Senna (Senokot) 1 tab HS PO Last administered on 08/01/16 21:18; Admin Dose 1 TAB; Start 07/27/16 at 21:00 Bisacodyl (Dulcolax Supp) 10 mg DAILY PRN [place] CONSTIPATION Last administered on 07/30/16 18:26; Admin Dose 10 MG; Start 07/27/16 at 03:15 Lactulose (Enulose) 20 gm DAILY PRN PO CONSTIPATION Last administered on 09:22; Admin Dose 20 GM; Start 07/27/16 at 03:15 Atorvastatin Calcium (Lipitor) 20 mg DAILY@21 PO Last administered on 21:19; Admin Dose 20 MG; Start 07/27/16 at 21:00 Hydromorphone HCl (Dilaudid) 0.5 mg Q3H PRN IM PAIN Last administered on 19:29; Admin Dose 0.5 MG; Start 07/27/16 at 15:00 Memantine (Namenda) 10 mg BID PO Last administered on 08/02/16 08:57; Admin Dose 10 MG; Start 07/27/16 at 21:00 Dipyridamole/ Aspirin (Aggrenox) 1 cap BID PO Last administered on 08/02/16 08 :58; Admin Dose 1 CAP; Start 07/27/16 at 21:00 Betamethasone/ Clotrimazole (Lotrisone Cr) 1 applic BID PRN TOP excoriation; Start 07/31/16 at 12:00 Assessment/Plan Additional Assessment/Plan Rehab- Left intertrochanteric comminuted hip fracture status post intramedullary rosa. Patient with improved participation when family present, and pain under control. Does have times of refusals. SW working with family regarding dc planning due to variable participation. orthostatic- BP improved Mild encephalopathy with confusion- interdisciplinary rehab. Patient near baseline cognition Anemia. Hypothyroidism. Urinary tract infection. Dyslipidemia. KANA GRACE MD Aug 03, 2016 12:48
--- NOTE | 2016-08-03 13:54 | PN ---
DATE: 08/03/2016 SUBJECTIVE: Case discussed with Dr. Legegtt and staff. The patient participates more and does better with family is here. When the family is not here she does not participate as much and refuses some of her medications and also does not eat as much. When family brings food the patient eats it, so un fortunately family is not here all the time. Case discussed with Dr. Leggett. PHYSICAL EXAMINATION: VITAL SIGNS: Temperature is 98.4, pulse 90, respirations 20, blood pressure 112/67, saturation 98% on room air. GENERAL: No acute distress. The patient is pale. CARDIOVASCULAR: S1, S2, regular rate. LUNGS: Clear. ABDOMEN: Soft, nontender. EXTREMITIES: No clubbing, cyanosis, or edema. LABORATORY DATA: Sodium 139,potassium 4.1, chloride 105, bicarbonate 23, BUN is 11, creatinine 0.62 , glucose of 149, that was done on August 01. On August 01 white count was 8.6, hemoglobin 12.2. MRSA screen negative. MEDICATIONS: Include the following, but unfortunately she is refusing multiple medications. All med ications were reviewed. I encouraged the nurse to give at least Lovenox for DVT prophylaxis. ASSESSMENT AND PLAN: This is an unfortunate 86-year-old Guatemalan-speaking female with history of hyp ertension, osteoarthritis, dyslipidemia, osteoporosis status post left hip ORIF secondary to fractur e. 1. Left hip open reduction internal fixation. Continue physical therapy, occupational therapy, spee ch therapy, pain control. Hopefully, family can assist and will convince the patient to participate more. 2. Continue deep venous thrombosis prophylaxis. 3. Episodes of hypotension responded to fluid hydration, improved. 4. Thoracic aneurysm, now 5.1 cm. Follow up outpatient basis. 5. Hypothyroidism on Synthroid. 6. Tachycardia. Continue beta blockers. 7. Psychiatric. Continue all psych medications. 8. Continue stool softeners. 9. Encourage her to eat. 10. Dementia. Patient is on Namenda. 11. Agitation. Family recommended to avoid narcotics which may make her more confused and just to try to give her j ust Tylenol. Will continue to follow. Dictated By: ESTER CUBA/BETI Conf#: [id number] DID#: [id number]
[2016-08-03 19:57] VITALS: BP 143/78; RESP 19
[2016-08-03] MEDS: ATORVASTATIN 20 MG TAB PO SCH (21:00)
[2016-08-03] MEDS: SOD CHLORIDE 0.9% 1,000 ML IV SCH (21:00)
[2016-08-03] MEDS: SENNA TAB PO SCH (21:00)
[2016-08-03] MEDS: GABAPENTIN 300 MG CAP PO SCH (21:00)
[2016-08-03] MEDS: LORAZEPAM 2 MG INJ IM PRN (22:58)
[2016-08-04] MEDS: PANTOPRAZOLE (EC) 40 MG TAB PO SCH (06:00)
[2016-08-04] MEDS: LEVOTHYROXINE 50 MCG TAB PO SCH (07:00)
[2016-08-04 07:21] VITALS: BP 141/88; RESP 19
[2016-08-04 07:32] VITALS: BP 100/57; RESP 18
[2016-08-04] MEDS: FERROUS SULFATE (EC) 325 MG TAB PO SCH (09:00)
[2016-08-04] MEDS: DIPYRIDAMOLE/ASPIRIN (SR) CAP PO SCH ×2 (09:00→21:00)
[2016-08-04] MEDS: MEMANTINE 10 MG TAB PO SCH ×2 (09:00→21:00)
[2016-08-04] MEDS: CHOLECALCIFEROL 1,000 UNIT TAB PO SCH (09:00)
[2016-08-04] MEDS: QUETIAPINE 25 MG TAB PO SCH ×2 (09:00→21:00)
[2016-08-04] MEDS: METOPROLOL 25 MG TAB PO SCH ×2 (09:00→21:00)
[2016-08-04] MEDS: BACLOFEN 10 MG TAB PO SCH (09:00)
[2016-08-04] MEDS: DOCUSATE SODIUM 100 MG CAP PO SCH ×2 (09:00→21:00)
[2016-08-04] MEDS: ENOXAPARIN 40 MG/0.4 ML SYG SC SCH (09:00)
[2016-08-04] MEDS: MAGNESIUM OXIDE 400 MG TAB PO SCH ×2 (09:00→21:00)
--- NOTE | 2016-08-04 12:29 | CONS ---
Date/Time of Note Date/Time of Note DATE: 08/04/16 TIME: 12:28 Consult Date/Type/Reason Admit Date/Time Jul 26, 2016 at 21:35 Subjective comfortable Objective pulm- cta mod assist ambulation Vital Signs Date Time Temp Pulse Resp B/P Pulse Ox O2 Delivery O2 Flow Rate FiO2 08/04/16 07:32 98.4 65 18 100/57 95 08/03/16 08:23 Room Air Intake and Output 08/03/16 08/03/16 08/04/16 14:59 22:59 06:59 Intake Total 480 ml 720 ml Output Total 3 ml 100 ml Balance 480 ml 717 ml -100 ml Results/Medications Result Diagram: 08/01/16 1406 08/01/16 1406 Medications Current Medications Lorazepam (Ativan) 0.5 mg Q4H PRN IM AGITATION Last administered on 08/03/16 22:58; Admin Dose 0.5 MG; Start 07/26/16 at 22:00 Acetaminophen (Tylenol Tab) 650 mg Q6H PRN PO PAIN AND OR ELEVATED TEMP Last administered on 08/03/16 17:57; Admin Dose 650 MG; Start 07/26/16 at 22:30 Baclofen (Lioresal) 10 mg DAILY PO Last administered on 08/03/16 09:54; Admin Dose 10 MG; Start 07/27/16 at 09:00 Cholecalciferol (Vitamin D) 1,000 unit DAILY PO Last administered on 08/03/16 09:55; Admin Dose 1,000 UNIT; Start 07/27/16 at 09:00 Docusate Sodium (Colace) 100 mg Q12H PRN PO CONSTIPATION; Start 07/26/16 at 22: 30 Enoxaparin Sodium (Lovenox) 40 mg DAILY SC Last administered on 08/02/16 09:08 ; Admin Dose 40 MG; Start 07/27/16 at 09:00 Ferrous Sulfate (Ferrous Sulfate (Ec)) 325 mg DAILY PO Last administered on 09:54; Admin Dose 325 MG; Start 07/27/16 at 09:00 Gabapentin (Neurontin) 300 mg HS PO Last administered on 08/01/16 21:18; Admin Dose 300 MG; Start 07/26/16 at 22:30 Acetaminophen/ Hydrocodone Bitart ([place] (5/325)) 1 tab Q6H PRN PO PAIN Last administered on 08/01/16 21:19; Admin Dose 1 TAB; Start 07/26/16 at 22:30 Lorazepam (Ativan) 0.5 mg Q6H PRN PO ANXIETY Last administered on 07/31/16 20: 31; Admin Dose 0.5 MG; Start 07/26/16 at 22:30 Magnesium Hydroxide (Milk Of Mag) 30 ml DAILY PRN PO CONSTIPATION Last administered on 07/30/16 06:16; Admin Dose 30 ML; Start 07/26/16 at 22:30 Magnesium Oxide (Mag-Ox 400) 400 mg BID PO Last administered on 08/02/16 08:57 ; Admin Dose 400 MG; Start 07/26/16 at 22:30 Meclizine HCl (Antivert) 25 mg BID PRN PO DIZZINESS Last administered on 20:30; Admin Dose 25 MG; Start 07/26/16 at 22:30 Metoprolol Tartrate (Lopressor) 25 mg BID PO Last administered on 08/02/16 08: 58; Admin Dose 25 MG; Start 07/26/16 at 22:30 Ondansetron HCl (Zofran Inj) 4 mg Q6H PRN IV NAUSEA AND/OR VOMITING; Start 07/26 at 22:30 Pantoprazole (Protonix Tab) 40 mg DAILY@06 PO Last administered on 07/30/16 06 :14; Admin Dose 40 MG; Start 07/27/16 at 06:00 Quetiapine Fumarate (Seroquel) 25 mg BID PO Last administered on 08/03/16 09: 54; Admin Dose 25 MG; Start 07/26/16 at 22:30 Zolpidem Tartrate (Ambien) 5 mg HS PRN PO INSOMNIA; Start 07/26/16 at 22:30 Docusate Sodium (Colace) 100 mg BID PO Last administered on 08/02/16 08:57; Admin Dose 100 MG; Start 07/27/16 at 09:00 Senna (Senokot) 1 tab HS PO Last administered on 08/01/16 21:18; Admin Dose 1 TAB; Start 07/27/16 at 21:00 Bisacodyl (Dulcolax Supp) 10 mg DAILY PRN [place] CONSTIPATION Last administered on 07/30/16 18:26; Admin Dose 10 MG; Start 07/27/16 at 03:15 Lactulose (Enulose) 20 gm DAILY PRN PO CONSTIPATION Last administered on 09:22; Admin Dose 20 GM; Start 07/27/16 at 03:15 Atorvastatin Calcium (Lipitor) 20 mg DAILY@21 PO Last administered on 21:19; Admin Dose 20 MG; Start 07/27/16 at 21:00 Hydromorphone HCl (Dilaudid) 0.5 mg Q3H PRN IM PAIN Last administered on 19:29; Admin Dose 0.5 MG; Start 07/27/16 at 15:00 Memantine (Namenda) 10 mg BID PO Last administered on 08/02/16 08:57; Admin Dose 10 MG; Start 07/27/16 at 21:00 Dipyridamole/ Aspirin (Aggrenox) 1 cap BID PO Last administered on 08/02/16 08 :58; Admin Dose 1 CAP; Start 07/27/16 at 21:00 Betamethasone/ Clotrimazole (Lotrisone Cr) 1 applic BID PRN TOP excoriation; Start 07/31/16 at 12:00 Assessment/Plan Additional Assessment/Plan Rehab- Left intertrochanteric comminuted hip fracture status post intramedullary rosa. Continue treatment plan, with scheduled activities when family present to increase participation. orthostatic- BP improved Mild encephalopathy with confusion- interdisciplinary rehab. Patient near baseline cognition Anemia. Hypothyroidism. Urinary tract infection. Dyslipidemia. KANA GRACE MD Aug 04, 2016 12:29
--- NOTE | 2016-08-04 13:05 | PN ---
DATE: 08/04/2016 SUBJECTIVE: Patient seen, overall with no complaints, resting comfortably in no distress. PHYSICAL EXAMINATION: VITAL SIGNS: Temperature 98.4, pulse 65, respirations 18, blood pressure 157, saturation 95% on andrea m air. GENERAL: No acute distress. HEENT: Normocephalic, atraumatic. Slightly pale. CARDIOVASCULAR: S1, S2, regular rate. LUNGS: Clear. ABDOMEN: Soft, nontender. EXTREMITIES: No clubbing, cyanosis, or edema. At the left hip site there are kuldip and slight sw elling, but no hematoma, that resolved. LABORATORY DATA: No new labs today. Labs on 08/01/2016 were reviewed. Basically, almost normal C BC and basic metabolic panel. MRSA screening was negative. No recent imaging tests. A CT scan of the chest done on 07/31/2016 did show ascending aortic aneurysm measuring 5.1 x 4.9 cm, previously i t was documented 54.5. This was not significantly increased in the overall period of 3 to 4 years. There may be also a granulomatous process. MEDICATIONS: Reviewed include Lotrisone. Patient has been refusing most of her medications. I rev iewed all of her medications. ASSESSMENT AND PLAN: 1. This is an 86-year-old Finnish-speaking female with history of hypertension, osteoarthritis, dy slipidemia, osteoporosis, status post left hip ORIF secondary to a fracture. 2. Left hip open reduction internal fixation. Continue physical therapy, occupational therapy, spe ech therapy, pain control. Encourage her to participate. Overall, the patient has improved definit og since admission. 3. Continue deep vein thrombosis prophylaxis and gastrointestinal prophylaxis. 4. Episodes of hypotension. Responded recently to fluid challenge; observe. 5. Thoracic aneurysm appears to be overall stable over the years. Outpatient followup. 6. Hypothyroidism. Continue Synthroid. 7. Tachycardia, resolved. 8. Psychiatric. Resume all psych medications. 9. Continue stool softeners. 10. Dementia, on Namenda. 11. Discharge planning is planned for the next few days with home health. I left a message with Arlen bolaños, phone number [phone] today. We will follow. Dictated By: ESTER CUBA/BETI Conf#: [id number] DID#: [id number]
[2016-08-04] MEDS: SENNA TAB PO SCH (21:00)
[2016-08-04] MEDS: GABAPENTIN 300 MG CAP PO SCH (21:00)
[2016-08-04] MEDS: ATORVASTATIN 20 MG TAB PO SCH (21:00)
[2016-08-04 22:12] VITALS: BP 145/73; RESP 19
[2016-08-05] MEDS: PANTOPRAZOLE (EC) 40 MG TAB PO SCH (06:00)
[2016-08-05] MEDS: LEVOTHYROXINE 50 MCG TAB PO SCH (07:00)
[2016-08-05 07:45] VITALS: BP 140/91; PULSE 88; RESP 18
[2016-08-05 08:00] VITALS: BP 140/91; RESP 20
[2016-08-05] MEDS: METOPROLOL 25 MG TAB PO SCH ×2 (08:26→21:00)
[2016-08-05] MEDS: FERROUS SULFATE (EC) 325 MG TAB PO SCH (08:26)
[2016-08-05] MEDS: DIPYRIDAMOLE/ASPIRIN (SR) CAP PO SCH ×3 (08:26→21:00)
[2016-08-05] MEDS: DOCUSATE SODIUM 100 MG CAP PO SCH ×2 (08:26→21:00)
[2016-08-05] MEDS: BACLOFEN 10 MG TAB PO SCH (08:26)
[2016-08-05] MEDS: CHOLECALCIFEROL 1,000 UNIT TAB PO SCH (08:27)
[2016-08-05] MEDS: MEMANTINE 10 MG TAB PO SCH ×3 (08:27→21:00)
[2016-08-05] MEDS: QUETIAPINE 25 MG TAB PO SCH ×3 (08:27→21:00)
[2016-08-05] MEDS: MAGNESIUM OXIDE 400 MG TAB PO SCH ×3 (08:27→21:00)
[2016-08-05] MEDS: ENOXAPARIN 40 MG/0.4 ML SYG SC SCH ×2 (08:28→16:22)
[2016-08-05] MEDS: ACETAMINOPHEN 325 MG TAB PO PRN (09:10)
--- NOTE | 2016-08-05 09:37 | CONS ---
Date/Time of Note Date/Time of Note DATE: 08/05/16 TIME: 09:34 Consult Date/Type/Reason Admit Date/Time Jul 26, 2016 at 21:35 Initial Consult Date Subjective Patient seen, overall with no complaints, resting comfortably in no distress. POC reviewed with dr. sabillon. PHYSICAL EXAMINATION: VITAL SIGNS: Temperature 98.4, pulse 65, respirations 18, blood pressure 157, saturation 95% on room air. GENERAL: No acute distress. HEENT: Normocephalic, atraumatic. Slightly pale. CARDIOVASCULAR: S1, S2, regular rate. LUNGS: Clear. ABDOMEN: Soft, nontender. EXTREMITIES: No clubbing, cyanosis, or edema. At the left hip site there are kuldip and slight swelling, but no hematoma, that resolved. Objective Vital Signs Date Time Temp Pulse Resp B/P Pulse Ox O2 Delivery O2 Flow Rate FiO2 08/05/16 08:00 97.5 89 20 140/91 95 08/05/16 07:45 Room Air Intake and Output 08/04/16 08/04/16 08/05/16 15:00 23:00 07:00 Intake Total 120 ml 240 ml 400 ml Output Total 120 ml Balance 0 ml 240 ml 400 ml Results/Medications Result Diagram: 08/01/16 1406 08/01/16 1406 Medications Current Medications Lorazepam (Ativan) 0.5 mg Q4H PRN IM AGITATION Last administered on 08/03/16 22:58; Admin Dose 0.5 MG; Start 07/26/16 at 22:00 Acetaminophen (Tylenol Tab) 650 mg Q6H PRN PO PAIN AND OR ELEVATED TEMP Last administered on 08/05/16 09:10; Admin Dose 650 MG; Start 07/26/16 at 22:30 Baclofen (Lioresal) 10 mg DAILY PO Last administered on 08/03/16 09:54; Admin Dose 10 MG; Start 07/27/16 at 09:00 Cholecalciferol (Vitamin D) 1,000 unit DAILY PO Last administered on 08/03/16 09:55; Admin Dose 1,000 UNIT; Start 07/27/16 at 09:00 Docusate Sodium (Colace) 100 mg Q12H PRN PO CONSTIPATION; Start 07/26/16 at 22: 30 Enoxaparin Sodium (Lovenox) 40 mg DAILY SC Last administered on 08/02/16 09:08 ; Admin Dose 40 MG; Start 07/27/16 at 09:00 Ferrous Sulfate (Ferrous Sulfate (Ec)) 325 mg DAILY PO Last administered on 09:54; Admin Dose 325 MG; Start 07/27/16 at 09:00 Gabapentin (Neurontin) 300 mg HS PO Last administered on 08/01/16 21:18; Admin Dose 300 MG; Start 07/26/16 at 22:30 Acetaminophen/ Hydrocodone Bitart ([place] (5/325)) 1 tab Q6H PRN PO PAIN Last administered on 08/01/16 21:19; Admin Dose 1 TAB; Start 07/26/16 at 22:30 Lorazepam (Ativan) 0.5 mg Q6H PRN PO ANXIETY Last administered on 07/31/16 20: 31; Admin Dose 0.5 MG; Start 07/26/16 at 22:30 Magnesium Hydroxide (Milk Of Mag) 30 ml DAILY PRN PO CONSTIPATION Last administered on 07/30/16 06:16; Admin Dose 30 ML; Start 07/26/16 at 22:30 Magnesium Oxide (Mag-Ox 400) 400 mg BID PO Last administered on 08/02/16 08:57 ; Admin Dose 400 MG; Start 07/26/16 at 22:30 Meclizine HCl (Antivert) 25 mg BID PRN PO DIZZINESS Last administered on 20:30; Admin Dose 25 MG; Start 07/26/16 at 22:30 Metoprolol Tartrate (Lopressor) 25 mg BID PO Last administered on 08/02/16 08: 58; Admin Dose 25 MG; Start 07/26/16 at 22:30 Ondansetron HCl (Zofran Inj) 4 mg Q6H PRN IV NAUSEA AND/OR VOMITING; Start 07/26 at 22:30 Pantoprazole (Protonix Tab) 40 mg DAILY@06 PO Last administered on 07/30/16 06 :14; Admin Dose 40 MG; Start 07/27/16 at 06:00 Quetiapine Fumarate (Seroquel) 25 mg BID PO Last administered on 08/03/16 09: 54; Admin Dose 25 MG; Start 07/26/16 at 22:30 Zolpidem Tartrate (Ambien) 5 mg HS PRN PO INSOMNIA; Start 07/26/16 at 22:30 Docusate Sodium (Colace) 100 mg BID PO Last administered on 08/02/16 08:57; Admin Dose 100 MG; Start 07/27/16 at 09:00 Senna (Senokot) 1 tab HS PO Last administered on 08/01/16 21:18; Admin Dose 1 TAB; Start 07/27/16 at 21:00 Bisacodyl (Dulcolax Supp) 10 mg DAILY PRN [place] CONSTIPATION Last administered on 07/30/16 18:26; Admin Dose 10 MG; Start 07/27/16 at 03:15 Lactulose (Enulose) 20 gm DAILY PRN PO CONSTIPATION Last administered on 09:22; Admin Dose 20 GM; Start 07/27/16 at 03:15 Atorvastatin Calcium (Lipitor) 20 mg DAILY@21 PO Last administered on 21:19; Admin Dose 20 MG; Start 07/27/16 at 21:00 Hydromorphone HCl (Dilaudid) 0.5 mg Q3H PRN IM PAIN Last administered on 19:29; Admin Dose 0.5 MG; Start 07/27/16 at 15:00 Memantine (Namenda) 10 mg BID PO Last administered on 08/02/16 08:57; Admin Dose 10 MG; Start 07/27/16 at 21:00 Dipyridamole/ Aspirin (Aggrenox) 1 cap BID PO Last administered on 08/02/16 08 :58; Admin Dose 1 CAP; Start 07/27/16 at 21:00 Betamethasone/ Clotrimazole (Lotrisone Cr) 1 applic BID PRN TOP excoriation; Start 07/31/16 at 12:00 Assessment/Plan Chief Complaint/Hosp Course 1. Left hip open reduction internal fixation. Continue physical therapy, occupational therapy, speech therapy, pain control. Encourage her to participate. Overall, the patient has improved definitely since admission. -. Continue deep vein thrombosis prophylaxis and gastrointestinal prophylaxis. 2. Episodes of hypotension. Responded recently to fluid challenge; observe. 3. Thoracic aneurysm appears to be overall stable over the years. Outpatient followup. 4. Hypothyroidism. Continue Synthroid. 5. Tachycardia, resolved. 6. Mood do. Resume all psych medications. 7. Dementia, on Namenda. . Discharge planning is planned for the next few days with home health. Problems: NEHA FERREIRA MD Aug 05, 2016 09:37
--- NOTE | 2016-08-05 14:51 | PN ---
Date/Time of Note Date/Time of Note DATE: 08/05/16 TIME: 14:49 Assessment/Plan VTE Prophylaxis VTE Prophylaxis Intervention: LMWH Lines/Catheters IV Catheter Type (from Nrsg): Saline Lock Urinary Cath still in place: No Assessment/Plan Assessment/Plan 1. Left comminuted intertrochanteric hip fracture status post intramedullary rosa with impaired mobility/gait/ADLs. Continue PT/OT. Grooming improving now supervision. Min assist for upper body bathing and max assist for lower body bathing. Continue to monitor surgical site. Acute postoperative pain controlled , continue current regimen. 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 Continue supportive treatment. Continue ST. 3. Anemia. Monitor hemoglobin/hematocrit. 4. Hypothyroidism. Continue levothyroxine. 5. Dyslipidemia. Continue statin. 6. History of hypertension/orthostatic hypotension. S/p IV Fluid. Monitor BP. Subjective 24 Hr Interval Summary Free Text/Dictation Rehab progress note Subjective: Nursing reports patient refused medications this morning. Patient reports minimal pain currently left hip. ROS: Denies chest pain, no shortness of breath, no abdominal pain, no nausea or vomiting. Exam/Review of Systems Vital Signs Vitals Vital Signs Date Time Temp Pulse Resp B/P Pulse Ox O2 Delivery O2 Flow Rate FiO2 08/05/16 08:00 97.5 89 20 140/91 95 08/05/16 07:45 Room Air Intake and Output 08/04/16 08/04/16 08/05/16 15:00 23:00 07:00 Intake Total 120 ml 240 ml 400 ml Output Total 120 ml Balance 0 ml 240 ml 400 ml Exam General: Awake, alert, no acute distress CV: Regular rate, s1s2 Lungs: Symmetrical air entry, no wheezing Abdomen soft, nontender Extremities without cyanosis, calves nontender Neuro: No new focal changes. Wiggles toes on the left. Results Result Diagram: 08/01/16 1406 08/01/16 1406 Medications Medications Current Medications Lorazepam (Ativan) 0.5 mg Q4H PRN IM AGITATION Last administered on 08/03/16 22:58; Admin Dose 0.5 MG; Start 07/26/16 at 22:00 Acetaminophen (Tylenol Tab) 650 mg Q6H PRN PO PAIN AND OR ELEVATED TEMP Last administered on 08/05/16 09:10; Admin Dose 650 MG; Start 07/26/16 at 22:30 Baclofen (Lioresal) 10 mg DAILY PO Last administered on 08/03/16 09:54; Admin Dose 10 MG; Start 07/27/16 at 09:00 Cholecalciferol (Vitamin D) 1,000 unit DAILY PO Last administered on 08/03/16 09:55; Admin Dose 1,000 UNIT; Start 07/27/16 at 09:00 Docusate Sodium (Colace) 100 mg Q12H PRN PO CONSTIPATION; Start 07/26/16 at 22: 30 Enoxaparin Sodium (Lovenox) 40 mg DAILY SC Last administered on 08/02/16 09:08 ; Admin Dose 40 MG; Start 07/27/16 at 09:00 Ferrous Sulfate (Ferrous Sulfate (Ec)) 325 mg DAILY PO Last administered on 09:54; Admin Dose 325 MG; Start 07/27/16 at 09:00 Gabapentin (Neurontin) 300 mg HS PO Last administered on 08/01/16 21:18; Admin Dose 300 MG; Start 07/26/16 at 22:30 Acetaminophen/ Hydrocodone Bitart ([place] (5/325)) 1 tab Q6H PRN PO PAIN Last administered on 08/01/16 21:19; Admin Dose 1 TAB; Start 07/26/16 at 22:30 Lorazepam (Ativan) 0.5 mg Q6H PRN PO ANXIETY Last administered on 07/31/16 20: 31; Admin Dose 0.5 MG; Start 07/26/16 at 22:30 Magnesium Hydroxide (Milk Of Mag) 30 ml DAILY PRN PO CONSTIPATION Last administered on 07/30/16 06:16; Admin Dose 30 ML; Start 07/26/16 at 22:30 Magnesium Oxide (Mag-Ox 400) 400 mg BID PO Last administered on 08/02/16 08:57 ; Admin Dose 400 MG; Start 07/26/16 at 22:30 Meclizine HCl (Antivert) 25 mg BID PRN PO DIZZINESS Last administered on 20:30; Admin Dose 25 MG; Start 07/26/16 at 22:30 Metoprolol Tartrate (Lopressor) 25 mg BID PO Last administered on 08/02/16 08: 58; Admin Dose 25 MG; Start 07/26/16 at 22:30 Ondansetron HCl (Zofran Inj) 4 mg Q6H PRN IV NAUSEA AND/OR VOMITING; Start 07/26 at 22:30 Pantoprazole (Protonix Tab) 40 mg DAILY@06 PO Last administered on 07/30/16 06 :14; Admin Dose 40 MG; Start 07/27/16 at 06:00 Quetiapine Fumarate (Seroquel) 25 mg BID PO Last administered on 08/03/16 09: 54; Admin Dose 25 MG; Start 07/26/16 at 22:30 Zolpidem Tartrate (Ambien) 5 mg HS PRN PO INSOMNIA; Start 07/26/16 at 22:30 Docusate Sodium (Colace) 100 mg BID PO Last administered on 08/02/16 08:57; Admin Dose 100 MG; Start 07/27/16 at 09:00 Senna (Senokot) 1 tab HS PO Last administered on 08/01/16 21:18; Admin Dose 1 TAB; Start 07/27/16 at 21:00 Bisacodyl (Dulcolax Supp) 10 mg DAILY PRN [place] CONSTIPATION Last administered on 07/30/16 18:26; Admin Dose 10 MG; Start 07/27/16 at 03:15 Lactulose (Enulose) 20 gm DAILY PRN PO CONSTIPATION Last administered on 09:22; Admin Dose 20 GM; Start 07/27/16 at 03:15 Atorvastatin Calcium (Lipitor) 20 mg DAILY@21 PO Last administered on 21:19; Admin Dose 20 MG; Start 07/27/16 at 21:00 Hydromorphone HCl (Dilaudid) 0.5 mg Q3H PRN IM PAIN Last administered on 19:29; Admin Dose 0.5 MG; Start 07/27/16 at 15:00 Memantine (Namenda) 10 mg BID PO Last administered on 08/02/16 08:57; Admin Dose 10 MG; Start 07/27/16 at 21:00 Dipyridamole/ Aspirin (Aggrenox) 1 cap BID PO Last administered on 08/02/16 08 :58; Admin Dose 1 CAP; Start 07/27/16 at 21:00 Betamethasone/ Clotrimazole (Lotrisone Cr) 1 applic BID PRN TOP excoriation; Start 07/31/16 at 12:00 JJ ZURITA Aug 05, 2016 14:51
[2016-08-05 16:24] VITALS: BP 130/76; PULSE 76; RESP 18
[2016-08-05 19:00] VITALS: BP 119/88; RESP 20
[2016-08-05] MEDS: ATORVASTATIN 20 MG TAB PO SCH (21:00)
[2016-08-05] MEDS: GABAPENTIN 300 MG CAP PO SCH (21:00)
[2016-08-05] MEDS: SENNA TAB PO SCH (21:00)
[2016-08-05] MEDS: HYDROCODONE/APAP (5/325) TAB PO PRN (21:20)
[2016-08-06] MEDS: HYDROmorphONE 1 MG/ML SYG IM PRN (01:11)
[2016-08-06] MEDS: LORAZEPAM 2 MG INJ IM PRN ×2 (02:39→20:49)
[2016-08-06] MEDS: PANTOPRAZOLE (EC) 40 MG TAB PO SCH (05:35)
[2016-08-06] MEDS: LEVOTHYROXINE 50 MCG TAB PO SCH (05:35)
[2016-08-06 07:30] VITALS: BP 114/68; RESP 18
[2016-08-06] MEDS: DOCUSATE SODIUM 100 MG CAP PO SCH ×2 (09:00→21:00)
[2016-08-06] MEDS: MAGNESIUM OXIDE 400 MG TAB PO SCH ×3 (09:00→21:00)
[2016-08-06] MEDS: FERROUS SULFATE (EC) 325 MG TAB PO SCH (09:00)
[2016-08-06] MEDS: METOPROLOL 25 MG TAB PO SCH ×3 (09:00→21:00)
[2016-08-06] MEDS: CHOLECALCIFEROL 1,000 UNIT TAB PO SCH (09:00)
[2016-08-06] MEDS: DIPYRIDAMOLE/ASPIRIN (SR) CAP PO SCH ×2 (09:00→21:00)
[2016-08-06] MEDS: BACLOFEN 10 MG TAB PO SCH ×2 (09:00→12:05)
[2016-08-06] MEDS: MEMANTINE 10 MG TAB PO SCH ×3 (09:00→21:00)
[2016-08-06] MEDS: QUETIAPINE 25 MG TAB PO SCH ×3 (09:00→21:00)
--- NOTE | 2016-08-06 09:45 | CONS ---
Date/Time of Note Date/Time of Note DATE: 08/06/16 TIME: 09:44 Consult Date/Type/Reason Admit Date/Time Jul 26, 2016 at 21:35 Subjective Patient seen, overall with no complaints, resting comfortably in no distress. POC reviewed with dr. sabillon. PHYSICAL EXAMINATION: GENERAL: No acute distress. HEENT: Normocephalic, atraumatic. Slightly pale. CARDIOVASCULAR: S1, S2, regular rate. LUNGS: Clear. ABDOMEN: Soft, nontender. EXTREMITIES: No clubbing, cyanosis, or edema. At the left hip site there are kuldip and slight swelling, but no hematoma, that resolved. Objective Vital Signs Date Time Temp Pulse Resp B/P Pulse Ox O2 Delivery O2 Flow Rate FiO2 08/05/16 19:00 97.9 110 20 119/88 97 08/05/16 07:45 Room Air Intake and Output 08/05/16 08/05/16 08/06/16 15:00 23:00 07:00 Intake Total 610 ml Output Total 1 ml Balance 609 ml Results/Medications Medications Current Medications Lorazepam (Ativan) 0.5 mg Q4H PRN IM AGITATION Last administered on 08/06/16 02:39; Admin Dose 0.5 MG; Start 07/26/16 at 22:00 Acetaminophen (Tylenol Tab) 650 mg Q6H PRN PO PAIN AND OR ELEVATED TEMP Last administered on 08/05/16 09:10; Admin Dose 650 MG; Start 07/26/16 at 22:30 Baclofen (Lioresal) 10 mg DAILY PO Last administered on 08/03/16 09:54; Admin Dose 10 MG; Start 07/27/16 at 09:00 Cholecalciferol (Vitamin D) 1,000 unit DAILY PO Last administered on 08/03/16 09:55; Admin Dose 1,000 UNIT; Start 07/27/16 at 09:00 Docusate Sodium (Colace) 100 mg Q12H PRN PO CONSTIPATION; Start 07/26/16 at 22: 30 Ferrous Sulfate (Ferrous Sulfate (Ec)) 325 mg DAILY PO Last administered on 09:54; Admin Dose 325 MG; Start 07/27/16 at 09:00 Gabapentin (Neurontin) 300 mg HS PO Last administered on 08/01/16 21:18; Admin Dose 300 MG; Start 07/26/16 at 22:30 Acetaminophen/ Hydrocodone Bitart ([place] (5/325)) 1 tab Q6H PRN PO PAIN Last administered on 08/05/16 21:20; Admin Dose 1 TAB; Start 07/26/16 at 22:30 Lorazepam (Ativan) 0.5 mg Q6H PRN PO ANXIETY Last administered on 07/31/16 20: 31; Admin Dose 0.5 MG; Start 07/26/16 at 22:30 Magnesium Hydroxide (Milk Of Mag) 30 ml DAILY PRN PO CONSTIPATION Last administered on 07/30/16 06:16; Admin Dose 30 ML; Start 07/26/16 at 22:30 Magnesium Oxide (Mag-Ox 400) 400 mg BID PO Last administered on 08/05/16 16:26 ; Admin Dose 400 MG; Start 07/26/16 at 22:30 Meclizine HCl (Antivert) 25 mg BID PRN PO DIZZINESS Last administered on 20:30; Admin Dose 25 MG; Start 07/26/16 at 22:30 Metoprolol Tartrate (Lopressor) 25 mg BID PO Last administered on 08/02/16 08: 58; Admin Dose 25 MG; Start 07/26/16 at 22:30 Ondansetron HCl (Zofran Inj) 4 mg Q6H PRN IV NAUSEA AND/OR VOMITING; Start 07/26 at 22:30 Pantoprazole (Protonix Tab) 40 mg DAILY@06 PO Last administered on 07/30/16 06 :14; Admin Dose 40 MG; Start 07/27/16 at 06:00 Quetiapine Fumarate (Seroquel) 25 mg BID PO Last administered on 08/05/16 16: 30; Admin Dose 25 MG; Start 07/26/16 at 22:30 Zolpidem Tartrate (Ambien) 5 mg HS PRN PO INSOMNIA; Start 07/26/16 at 22:30 Docusate Sodium (Colace) 100 mg BID PO Last administered on 08/02/16 08:57; Admin Dose 100 MG; Start 07/27/16 at 09:00 Senna (Senokot) 1 tab HS PO Last administered on 08/01/16 21:18; Admin Dose 1 TAB; Start 07/27/16 at 21:00 Bisacodyl (Dulcolax Supp) 10 mg DAILY PRN [place] CONSTIPATION Last administered on 07/30/16 18:26; Admin Dose 10 MG; Start 07/27/16 at 03:15 Lactulose (Enulose) 20 gm DAILY PRN PO CONSTIPATION Last administered on 09:22; Admin Dose 20 GM; Start 07/27/16 at 03:15 Atorvastatin Calcium (Lipitor) 20 mg DAILY@21 PO Last administered on 21:19; Admin Dose 20 MG; Start 07/27/16 at 21:00 Hydromorphone HCl (Dilaudid) 0.5 mg Q3H PRN IM PAIN Last administered on 01:11; Admin Dose 0.5 MG; Start 07/27/16 at 15:00 Memantine (Namenda) 10 mg BID PO Last administered on 08/05/16 16:14; Admin Dose 10 MG; Start 07/27/16 at 21:00 Dipyridamole/ Aspirin (Aggrenox) 1 cap BID PO Last administered on 08/05/16 16 :14; Admin Dose 1 CAP; Start 07/27/16 at 21:00 Betamethasone/ Clotrimazole (Lotrisone Cr) 1 applic BID PRN TOP excoriation; Start 07/31/16 at 12:00 Enoxaparin Sodium (Lovenox) 40 mg QHS SC Last administered on 08/05/16 16:22; Admin Dose 40 MG; Start 08/05/16 at 21:00 Assessment/Plan Chief Complaint/Hosp Course 1. Left hip open reduction internal fixation. Continue physical therapy, occupational therapy, speech therapy, pain control. Encourage her to participate. Overall, the patient has improved definitely since admission. -. Continue deep vein thrombosis prophylaxis and gastrointestinal prophylaxis. 2. Episodes of hypotension. Responded recently to fluid challenge; observe. 3. Thoracic aneurysm appears to be overall stable over the years. Outpatient followup. 4. Hypothyroidism. Continue Synthroid. 5. Tachycardia, resolved. 6. Mood do. Resume all psych medications. 7. Dementia, on Namenda. . Discharge planning is planned for the next few days with home health. Problems: NEHA FERREIRA MD Aug 06, 2016 09:45
--- NOTE | 2016-08-06 10:53 | PN ---
Date/Time of Note Date/Time of Note DATE: 08/06/16 TIME: 10:51 Assessment/Plan VTE Prophylaxis VTE Prophylaxis Intervention: LMWH Lines/Catheters IV Catheter Type (from Nrsg): Saline Lock Urinary Cath still in place: No Assessment/Plan Assessment/Plan 1. Left comminuted intertrochanteric hip fracture status post intramedullary rosa with impaired mobility/gait/ADLs. Continue PT/OT. Mod to max assist with bed mobility and transfers. Continue to monitor surgical site. Acute postoperative pain controlled. 2. Post operative encephalopathy/history of dementia. Continue medical management. Continue ST. 3. Anemia. Continue to monitor hemoglobin/hematocrit. 4. Hypothyroidism. Continue levothyroxine. 5. Dyslipidemia. Continue statin. 6. History of hypertension/ orthostatic hypotension. S/p IV Fluids. Internal medicine managing, continue to monitor. Subjective 24 Hr Interval Summary Free Text/Dictation Rehab progress note Subjective: [place] program associate used. Continues to refuse some medications, staff reports daughter made aware. Patient reports some pain in left hip pain, but does not quantify pain level. ROS: No headache, no chest pain, no shortness of breath, no abdominal pain, no nausea or vomiting. Exam/Review of Systems Vital Signs Vitals Vital Signs Date Time Temp Pulse Resp B/P Pulse Ox O2 Delivery O2 Flow Rate FiO2 08/05/16 19:00 97.9 110 20 119/88 97 08/05/16 07:45 Room Air Intake and Output 08/05/16 08/05/16 08/06/16 15:00 23:00 07:00 Intake Total 610 ml Output Total 1 ml Balance 609 ml Exam General: Awake, alert, no acute distress CV: Regular rate, s1s2 Lungs: Symmetrical air entry, no wheezing, respirations are nonlabored Abdomen soft, nontender, +bowel sounds Extremities without cyanosis, left hip surgical site with kuldip in place. Neuro: No new focal changes. Medications Medications Current Medications Lorazepam (Ativan) 0.5 mg Q4H PRN IM AGITATION Last administered on 08/06/16 02:39; Admin Dose 0.5 MG; Start 07/26/16 at 22:00 Acetaminophen (Tylenol Tab) 650 mg Q6H PRN PO PAIN AND OR ELEVATED TEMP Last administered on 08/05/16 09:10; Admin Dose 650 MG; Start 07/26/16 at 22:30 Baclofen (Lioresal) 10 mg DAILY PO Last administered on 08/03/16 09:54; Admin Dose 10 MG; Start 07/27/16 at 09:00 Cholecalciferol (Vitamin D) 1,000 unit DAILY PO Last administered on 08/03/16 09:55; Admin Dose 1,000 UNIT; Start 07/27/16 at 09:00 Docusate Sodium (Colace) 100 mg Q12H PRN PO CONSTIPATION; Start 07/26/16 at 22: 30 Ferrous Sulfate (Ferrous Sulfate (Ec)) 325 mg DAILY PO Last administered on 09:54; Admin Dose 325 MG; Start 07/27/16 at 09:00 Gabapentin (Neurontin) 300 mg HS PO Last administered on 08/01/16 21:18; Admin Dose 300 MG; Start 07/26/16 at 22:30 Acetaminophen/ Hydrocodone Bitart ([place] (5/325)) 1 tab Q6H PRN PO PAIN Last administered on 08/05/16 21:20; Admin Dose 1 TAB; Start 07/26/16 at 22:30 Lorazepam (Ativan) 0.5 mg Q6H PRN PO ANXIETY Last administered on 07/31/16 20: 31; Admin Dose 0.5 MG; Start 07/26/16 at 22:30 Magnesium Hydroxide (Milk Of Mag) 30 ml DAILY PRN PO CONSTIPATION Last administered on 07/30/16 06:16; Admin Dose 30 ML; Start 07/26/16 at 22:30 Magnesium Oxide (Mag-Ox 400) 400 mg BID PO Last administered on 08/05/16 16:26 ; Admin Dose 400 MG; Start 07/26/16 at 22:30 Meclizine HCl (Antivert) 25 mg BID PRN PO DIZZINESS Last administered on 20:30; Admin Dose 25 MG; Start 07/26/16 at 22:30 Metoprolol Tartrate (Lopressor) 25 mg BID PO Last administered on 08/02/16 08: 58; Admin Dose 25 MG; Start 07/26/16 at 22:30 Ondansetron HCl (Zofran Inj) 4 mg Q6H PRN IV NAUSEA AND/OR VOMITING; Start 07/26 at 22:30 Pantoprazole (Protonix Tab) 40 mg DAILY@06 PO Last administered on 07/30/16 06 :14; Admin Dose 40 MG; Start 07/27/16 at 06:00 Quetiapine Fumarate (Seroquel) 25 mg BID PO Last administered on 08/05/16 16: 30; Admin Dose 25 MG; Start 07/26/16 at 22:30 Zolpidem Tartrate (Ambien) 5 mg HS PRN PO INSOMNIA; Start 07/26/16 at 22:30 Docusate Sodium (Colace) 100 mg BID PO Last administered on 08/02/16 08:57; Admin Dose 100 MG; Start 07/27/16 at 09:00 Senna (Senokot) 1 tab HS PO Last administered on 08/01/16 21:18; Admin Dose 1 TAB; Start 07/27/16 at 21:00 Bisacodyl (Dulcolax Supp) 10 mg DAILY PRN [place] CONSTIPATION Last administered on 07/30/16 18:26; Admin Dose 10 MG; Start 07/27/16 at 03:15 Lactulose (Enulose) 20 gm DAILY PRN PO CONSTIPATION Last administered on 09:22; Admin Dose 20 GM; Start 07/27/16 at 03:15 Atorvastatin Calcium (Lipitor) 20 mg DAILY@21 PO Last administered on 21:19; Admin Dose 20 MG; Start 07/27/16 at 21:00 Hydromorphone HCl (Dilaudid) 0.5 mg Q3H PRN IM PAIN Last administered on 01:11; Admin Dose 0.5 MG; Start 07/27/16 at 15:00 Memantine (Namenda) 10 mg BID PO Last administered on 08/05/16 16:14; Admin Dose 10 MG; Start 07/27/16 at 21:00 Dipyridamole/ Aspirin (Aggrenox) 1 cap BID PO Last administered on 08/05/16 16 :14; Admin Dose 1 CAP; Start 07/27/16 at 21:00 Betamethasone/ Clotrimazole (Lotrisone Cr) 1 applic BID PRN TOP excoriation; Start 07/31/16 at 12:00 Enoxaparin Sodium (Lovenox) 40 mg QHS SC Last administered on 08/05/16t 16:22; Admin Dose 40 MG; Start 08/05/16 at 21:00 JJ ZURITA Aug 06, 2016 10:53
[2016-08-06] MEDS: ENOXAPARIN 40 MG/0.4 ML SYG SC SCH (16:44)
[2016-08-06] MEDS: SENNA TAB PO SCH (21:00)
[2016-08-06] MEDS: GABAPENTIN 300 MG CAP PO SCH (21:00)
[2016-08-06] MEDS: ATORVASTATIN 20 MG TAB PO SCH (21:00)
[2016-08-07] MEDS: PANTOPRAZOLE (EC) 40 MG TAB PO SCH (06:00)
[2016-08-07] MEDS: LEVOTHYROXINE 50 MCG TAB PO SCH (06:24)
[2016-08-07] MEDS: MAGNESIUM OXIDE 400 MG TAB PO SCH ×2 (09:00→21:00)
[2016-08-07] MEDS: FERROUS SULFATE (EC) 325 MG TAB PO SCH (09:00)
[2016-08-07] MEDS: DIPYRIDAMOLE/ASPIRIN (SR) CAP PO SCH ×2 (09:00→21:00)
[2016-08-07] MEDS: DOCUSATE SODIUM 100 MG CAP PO SCH ×2 (09:00→21:00)
[2016-08-07] MEDS: QUETIAPINE 25 MG TAB PO SCH ×2 (09:00→21:00)
[2016-08-07] MEDS: METOPROLOL 25 MG TAB PO SCH ×2 (09:00→21:00)
[2016-08-07] MEDS: MEMANTINE 10 MG TAB PO SCH ×2 (09:00→21:00)
[2016-08-07] MEDS: BACLOFEN 10 MG TAB PO SCH (09:00)
[2016-08-07] MEDS: CHOLECALCIFEROL 1,000 UNIT TAB PO SCH (09:00)
--- NOTE | 2016-08-07 11:36 | CONS ---
Date/Time of Note Date/Time of Note DATE: 08/07/16 TIME: 11:35 Consult Date/Type/Reason Admit Date/Time Jul 26, 2016 at 21:35 Subjective Improved participation Objective Vital Signs Date Time Temp Pulse Resp B/P Pulse Ox O2 Delivery O2 Flow Rate FiO2 08/06/16 07:30 98.5 104 18 114/68 93 08/05/16 07:45 Room Air Intake and Output 08/06/16 08/06/16 08/07/16 15:00 23:00 07:00 Intake Total 560 ml Balance 560 ml INTERDISCIPLINARY TEAM CONFERENCE BOWEL- Cont BLADDER-Cont.incont SKIN- intact OT- DRESSING-min/mod BATHING-min/mod TOILETING-min PT- BED MOBILITYmod TRANSFERS-mod AMBULATION-mod 50 feet SPEECH- COGNITION-mod A/P- Interdisciplinary team conference held today. Please see interdisciplinary sheet. Working toward d.c. on 08/08 with post discharge follow up of physical therapy, occupational therapy. Results/Medications Medications Current Medications Lorazepam (Ativan) 0.5 mg Q4H PRN IM AGITATION Last administered on 08/06/16 20:49; Admin Dose 0.5 MG; Start 07/26/16 at 22:00 Acetaminophen (Tylenol Tab) 650 mg Q6H PRN PO PAIN AND OR ELEVATED TEMP Last administered on 08/05/16 09:10; Admin Dose 650 MG; Start 07/26/16 at 22:30 Baclofen (Lioresal) 10 mg DAILY PO Last administered on 08/03/16 09:54; Admin Dose 10 MG; Start 07/27/16 at 09:00 Cholecalciferol (Vitamin D) 1,000 unit DAILY PO Last administered on 08/03/16 09:55; Admin Dose 1,000 UNIT; Start 07/27/16 at 09:00 Docusate Sodium (Colace) 100 mg Q12H PRN PO CONSTIPATION; Start 07/26/16 at 22: 30 Ferrous Sulfate (Ferrous Sulfate (Ec)) 325 mg DAILY PO Last administered on 09:54; Admin Dose 325 MG; Start 07/27/16 at 09:00 Gabapentin (Neurontin) 300 mg HS PO Last administered on 08/01/16 21:18; Admin Dose 300 MG; Start 07/26/16 at 22:30 Acetaminophen/ Hydrocodone Bitart (Fowler (5/325)) 1 tab Q6H PRN PO PAIN Last administered on 08/05/16 21:20; Admin Dose 1 TAB; Start 07/26/16 at 22:30 Lorazepam (Ativan) 0.5 mg Q6H PRN PO ANXIETY Last administered on 07/31/16 20: 31; Admin Dose 0.5 MG; Start 07/26/16 at 22:30 Magnesium Hydroxide (Milk Of Mag) 30 ml DAILY PRN PO CONSTIPATION Last administered on 07/30/16 06:16; Admin Dose 30 ML; Start 07/26/16 at 22:30 Magnesium Oxide (Mag-Ox 400) 400 mg BID PO Last administered on 08/05/16 16:26 ; Admin Dose 400 MG; Start 07/26/16 at 22:30 Meclizine HCl (Antivert) 25 mg BID PRN PO DIZZINESS Last administered on 20:30; Admin Dose 25 MG; Start 07/26/16 at 22:30 Metoprolol Tartrate (Lopressor) 25 mg BID PO Last administered on 08/02/16 08: 58; Admin Dose 25 MG; Start 07/26/16 at 22:30 Ondansetron HCl (Zofran Inj) 4 mg Q6H PRN IV NAUSEA AND/OR VOMITING; Start 07/26 at 22:30 Pantoprazole (Protonix Tab) 40 mg DAILY@06 PO Last administered on 07/30/16 06 :14; Admin Dose 40 MG; Start 07/27/16 at 06:00 Quetiapine Fumarate (Seroquel) 25 mg BID PO Last administered on 08/05/16 16: 30; Admin Dose 25 MG; Start 07/26/16 at 22:30 Zolpidem Tartrate (Ambien) 5 mg HS PRN PO INSOMNIA; Start 07/26/16 at 22:30 Docusate Sodium (Colace) 100 mg BID PO Last administered on 08/02/16 08:57; Admin Dose 100 MG; Start 07/27/16 at 09:00 Senna (Senokot) 1 tab HS PO Last administered on 08/01/16 21:18; Admin Dose 1 TAB; Start 07/27/16 at 21:00 Bisacodyl (Dulcolax Supp) 10 mg DAILY PRN NE CONSTIPATION Last administered on 07/30/16 18:26; Admin Dose 10 MG; Start 07/27/16 at 03:15 Lactulose (Enulose) 20 gm DAILY PRN PO CONSTIPATION Last administered on 09:22; Admin Dose 20 GM; Start 07/27/16 at 03:15 Atorvastatin Calcium (Lipitor) 20 mg DAILY@21 PO Last administered on 21:19; Admin Dose 20 MG; Start 07/27/16 at 21:00 Hydromorphone HCl (Dilaudid) 0.5 mg Q3H PRN IM PAIN Last administered on 01:11; Admin Dose 0.5 MG; Start 07/27/16 at 15:00 Memantine (Namenda) 10 mg BID PO Last administered on 08/05/16 16:14; Admin Dose 10 MG; Start 07/27/16 at 21:00 Dipyridamole/ Aspirin (Aggrenox) 1 cap BID PO Last administered on 08/05/16 16 :14; Admin Dose 1 CAP; Start 07/27/16 at 21:00 Betamethasone/ Clotrimazole (Lotrisone Cr) 1 applic BID PRN TOP excoriation Last administered on 08/06/16 12:11; Admin Dose 1 APPLIC; Start 07/31/16 at 12: 00 Enoxaparin Sodium (Lovenox) 40 mg QHS SC Last administered on 08/06/16 16:44; Admin Dose 40 MG; Start 08/05/16 at 21:00 KANA GRACE MD Aug 07, 2016 11:36
--- NOTE | 2016-08-07 13:14 | PN ---
DATE: 08/07/2016 SUBJECTIVE: The patient is stable. No acute events overnight. No fevers, chills, nausea, vomiting . No shortness of breath. OBJECTIVE: VITAL SIGNS: Blood pressure is 114/68, respiration 18, pulse 104, temperature 98.5. HEENT: Head is normocephalic. NECK: Supple. HEART: Regular rate. LUNGS: Show diminished breath sounds at base. ABDOMEN: Soft, nontender to palpation. No rebound or guarding. EXTREMITIES: Negative for clubbing, cyanosis, or edema. DERMATOLOGIC: No rashes. MUSCULOSKELETAL: No joint effusions. NEUROLOGIC: No change in exam. MEDICATIONS: Have been reviewed. LABORATORY DATA: Has been reviewed. No new labs. ASSESSMENT AND PLAN: 1. Left hip fracture, status post open reduction internal fixation. The patient is currently stabl e. Continue PT, OT. 2. Hypothyroidism. Continue Synthroid. 3. Thoracic aneurysm, stable, continue to monitor. 4. Dementia. Continue Namenda. 5. Constipation. Continue stool softener. 6. Psychosis. Continue current psych regimen. 7. Tachycardia, resolved. 8. Gastrointestinal and deep venous thrombosis prophylaxis. Continue Lovenox. Continue proton pum p inhibitor. 9. Anemia. Continue ferritin. 10. Neuropathy. Continue Neurontin. Dictated By: MEHREEN ROGERS/BETI Conf#: [id number] DID#: [id number]
[2016-08-07 19:36] VITALS: BP 143/85; RESP 21
[2016-08-07] MEDS: LORAZEPAM 2 MG INJ IM PRN (20:41)
[2016-08-07] MEDS: SENNA TAB PO SCH (21:00)
[2016-08-07] MEDS: ATORVASTATIN 20 MG TAB PO SCH (21:00)
[2016-08-07] MEDS: GABAPENTIN 300 MG CAP PO SCH (21:00)
[2016-08-07] MEDS: ENOXAPARIN 40 MG/0.4 ML SYG SC SCH (21:20)
[2016-08-08] MEDS: PANTOPRAZOLE (EC) 40 MG TAB PO SCH (05:57)
[2016-08-08] MEDS: LEVOTHYROXINE 50 MCG TAB PO SCH (05:57)
[2016-08-08 07:30] VITALS: BP 161/83; RESP 18
[2016-08-08] MEDS: MEMANTINE 10 MG TAB PO SCH (08:48)
[2016-08-08] MEDS: BACLOFEN 10 MG TAB PO SCH (08:48)
[2016-08-08] MEDS: METOPROLOL 25 MG TAB PO SCH (08:49)
[2016-08-08] MEDS: QUETIAPINE 25 MG TAB PO SCH (08:49)
[2016-08-08] MEDS: DOCUSATE SODIUM 100 MG CAP PO SCH (08:51)
[2016-08-08] MEDS: CHOLECALCIFEROL 1,000 UNIT TAB PO SCH (08:51)
[2016-08-08] MEDS: DIPYRIDAMOLE/ASPIRIN (SR) CAP PO SCH (08:51)
[2016-08-08] MEDS: MAGNESIUM OXIDE 400 MG TAB PO SCH (08:51)
[2016-08-08] MEDS: FERROUS SULFATE (EC) 325 MG TAB PO SCH (08:51)
--- NOTE | 2016-08-08 11:57 | PN ---
DATE: 08/08/2016 SUBJECTIVE: The patient is stable, complaining of some mild pain at her incision site. No other ac [place] events noted. No hemoptysis, hematemesis, or hematochezia. OBJECTIVE: VITAL SIGNS: Blood pressure is 143/85, respiration 21, pulse 95, pulse is 98.5. HEENT: Head is normocephalic. NECK: Supple. HEART: Regular rate. LUNGS: Show diminished breath sounds at base. ABDOMEN: Soft, nontender to palpation, without rebound or guarding. EXTREMITIES: Negative for clubbing, cyanosis. No edema. DERMATOLOGIC: No rashes. MUSCULOSKELETAL: No joint effusions. NEUROLOGIC: No focal deficits. LABORATORY DATA: Has been reviewed. ASSESSMENT AND PLAN: 1. Left hip fracture, status post open reduction internal fixation. The patient is currently stabl e. Continue physical therapy and occupational therapy. 2. Hypothyroidism. Continue Synthroid. 3. Thoracic aneurysm, currently stable. Continue to monitor. 4. Dementia. Continue Namenda. 5. Constipation, improved. Continue stool softeners. 6. Psychosis. Continue current psychiatric regimen. 7. Anemia. Continue to monitor hemoglobin and hematocrit levels. 8. Neuropathy. Continue Neurontin. 9. Gastrointestinal and deep venous thrombosis prophylaxis. Continue proton pump inhibitor and Rosey enox. Dictated By: MEHREEN ROGERS/BETI Conf#: [id number] DID#: [id number]
[2016-08-08] MEDS: ACETAMINOPHEN 325 MG TAB PO PRN (12:59)
== END 2016-08-08 13:30 | DRG 559 ==
LOC: VRC 21:35
PROVIDERS: ADMIT Physical Medicine & Rehabilitation; ATTEND Internal Medicine
DX: S72.142G Displaced intertrochanteric fracture of left femur, subsequent encounter for closed fracture with delayed healing (principal); G93.40 Encephalopathy, unspecified; I71.2 Thoracic aortic aneurysm, without rupture; N39.0 Urinary tract infection, site not specified; F03.90 Unspecified dementia, unspecified severity, without behavioral disturbance, psychotic disturbance, mood disturbance, and anxiety; D64.9 Anemia, unspecified; E03.9 Hypothyroidism, unspecified; E78.5 Hyperlipidemia, unspecified; G31.84 Mild cognitive impairment of uncertain or unknown etiology; Z74.09 Other reduced mobility
CPT/HCPCS: 71250; 80048; 80053; 83735; 84100; 85025; 87081; 92507; 92523; 92526; 92610; 95852; 97110; 97112; 97116; 97150; 97163; 97167; 97530; 97535; 97542; J1170; J1650; J2060; J7030